=== PATIENT | male | born 1970 | race Caucasian/White ===

== ENCOUNTER 2019-09-12 11:05 | Emergency (ER) | payer OTHER, SELFPAY ==
--- NOTE | ~2019-09-12 | XR_ITS ---
EXAMINATION: XR chest 1V portable DATE: 09/12/2019 11:46 INDICATION: Dyspnea. Fever. TECHNIQUE: A single frontal view of the chest was obtained on 2 radiographs. COMPARISON: Chest 2 views 01/22/17 FINDINGS: The chest demonstrates clear lungs without pneumonia, pleural effusion, or pneumothorax. Th e heart size is normal. IMPRESSION: 1. No acute cardiopulmonary disease. Reviewed, dictated and finalized at location A.
[2019-09-12 11:18] VITALS: BP 136/83; PULSE 66; RESP 18; TEMP 36.8; O2SAT 98
--- NOTE | 2019-09-12 11:26 | ECG_ITS ---
Measurements Intervals [place] Rate: 61 P: 79 IA: 193 QRS: 66 QRSD: 86 T: 55 QT: 367 QTc: 372 Interpretive Statements SINUS RHYTHM NORMAL ECG Electronically Signed On 09-12-2019 12:32:19 CDT by Taj Chavez D.O.
[2019-09-12 11:40] LABS: Basophils Percent Auto 0.4 % (0.2-1.2); Eosinophils Absolute Auto 0.1 K/mm3 (0-0.3); Eosinophils Percent Auto 1.8 % (0-4.4); Hematocrit 45.8 % (42.0-52.0); Hemoglobin 16.3 g/dL (14.0-18.0); Immature Granulocyte Absolute 0.01 K/mm3 (0.00-0.031); Immature Granulocyte Percent A 0.2 % (0-0.5); Lymphocytes Absolute Auto 1.46 K/mm3 (0.9-3.2); Lymphocytes Percent Auto 29.9 % (18.3-44.2); Mean Corpuscular HGB Conc 35.6 g/dl (32-36); Mean Corpuscular Hemoglobin 29.9 pg (26-34); Mean Corpuscular Volume 83.9 fl (80-100); Mean Platelet Volume 9.5 fl (7.4-10.4); Monocytes Absolute Auto 0.4 K/mm3 (0.1-0.6); Monocytes Percent Auto 8.4 % (2.6-8.5); Neutrophils Absolute Auto 2.9 K/mm3 (1.3-6.7); Neutrophils Percent Auto 59.3 % (45.5-73.1); Platelet Count Result 242 k/mm3 (150-375); Red Blood Count 5.46 M/mm3 (4.6-6.20); Red Cell Distribution Width 11.9 % (11.5-14.5); White Blood Count 4.9 K/mm3 (4.5-10.0)
[2019-09-12 11:52] LABS: Blood Urea Nitrogen 11 mg/dL (9-20); Calcium 9.2 mg/dL (8.4-10.2); Carbon Dioxide 23 mmol/L (22-30); Chloride 105 mmol/L (98-107); Estimated CRCL calculation 94 ml/min; Estimated Glomerular Filt Rate > 60; Glucose 106 mg/dL (75-110); Lactic Acid 1.9 mmol/L (0.7-2.1); Sodium 138 mmol/L (137-145)
--- NOTE | 2019-09-12 12:08 | ED.SOB ---
HPI - SOB/Dyspnea General Chief Complaint: Shortness of Breath/Dyspnea Stated Complaint: COVID Symptoms Time Seen by Provider: 09/12/19 11:07 Source: patient Mode of arrival: ambulatory Limitations: no limitations History of Present Illness HPI Narrative: Patient is a 49-year-old male who presents to emergency department for evaluation upper respiratory symptoms for the last several days had COVID testing on Saturday pending testing still patient has been taking Tylenol and aspirin with improvement of symptoms had body aches chills congestion and productive cough during this. On arrival patient resting comfortable notes that through the duration of his illness he has had anterior chest tightness denies any chest pain. Patient denies sick contacts Related Data Allergies Allergy/AdvReac Type Severity Reaction Status Date / Time codeine Allergy Unknown Itching Verified 09/12/19 11:24 Review of Systems Review of Systems: All systems reviewed & are unremarkable except as noted in HPI and below PMFSH Social History Social History (Updated 09/12/19 @ 12:09 by Barney Barton PA-C) Smoking status: Never smoker Exam Narrative: Exam Narrative: GENERAL: Well-appearing, well-nourished, and in no acute distress. HEAD: Normocephalic, atraumatic. EYES: PERRLA and EOMI. ENT: Nares clear, no rhinorrhea or epistaxis. Mucous membranes moist. Oropharynx without tonsillar hypertrophy exudate or other lesions. CHEST: Clear to auscultation. No respiratory distress. No wheezes rales or rhonchi HEART: Regular rate and rhythm. No murmur heard. Normal peripheral pulses. ABDOMEN: Soft, nontender, nondistended EXTREMITIES: Normal range of motion. No edema. SKIN: Warm, dry, no rash. NEURO: No focal deficits. Alert and oriented x3. PSYCH: Normal mood and affect. Course Course Emergency Course: Patient in the room in no distress aware of case findings treatment plan and diagnosis agreeing to follow-up as directed with primary care in the room in no distress normal vital signs no pneumonia no hypoxemia Vital Signs Vital signs: Vital Signs Temperature 98.2 F 09/12/19 11:18 Pulse Rate 66 09/12/19 11:18 Respiratory Rate 18 09/12/19 11:18 Blood Pressure 136/83 09/12/19 11:18 Pulse Oximetry 98 09/12/19 11:18 Temperature 98.2 F 09/12/19 11:18 Pulse Rate 66 09/12/19 11:18 Respiratory Rate 18 09/12/19 11:18 Blood Pressure 136/83 09/12/19 11:18 Pulse Oximetry 98 09/12/19 11:18 MDM - SOB/Dyspnea MDM Narrative Medical decision making narrative: Patient in the room in no distress felt appropriate for outpatient reevaluation pending COVID testing advised to self quarantine normal vital signs no pneumonia felt appropriate for outpatient reevaluation Lab Data Result diagrams: 09/12/19 11:30 09/12/19 11:30 Labs: Lab Results 09/12/19 09/12/19 09/12/19 Range/Units 11:29 11:29 11:30 WBC 4.9 (4.5-10.0) K/mm3 RBC 5.46 (4.6-6.20) M/mm3 Hgb 16.3 (14.0-18.0) g/dL Hct 45.8 (42.0-52.0) % MCV 83.9 (80-100) fl MCH 29.9 (26-34) pg MCHC 35.6 (32-36) g/dl RDW 11.9 (11.5-14.5) % Plt Count 242 (150-375) k/mm3 MPV 9.5 (7.4-10.4) fl Immature Gran % (Auto) 0.2 (0-0.5) % Neut % (Auto) 59.3 (45.5-73.1) % Lymph % (Auto) 29.9 (18.3-44.2) % [place] % (Auto) 8.4 (2.6-8.5) % Eos % (Auto) 1.8 (0-4.4) % Baso % (Auto) 0.4 (0.2-1.2) % Lymph # (Auto) 1.46 (0.9-3.2) K/mm3 [place] # (Auto) 0.4 (0.1-0.6) K/mm3 Eos # (Auto) 0.1 (0-0.3) K/mm3 Baso # (Auto) 0.0 (0.0-0.1) K/mm3 Abs Immat Gran (auto) 0.01 (0.00-0.031) K/mm3 Absolute Neuts (auto) 2.9 (1.3-6.7) K/mm3 Absolute Nucleated RBC 0.0 (0.0-0.012) K/mm3 Nucleated RBC % 0.0 (0.0-0.2) % D-Dimer 0.27 (<0.48) ug/mL Sodium (137-145) mmol/L Potassium (3.4-5.0) mmol/L Chloride (98-107) mmol/L Carbon Dioxide (22-30) mmol/L
[2019-09-12 12:35] LABS: Troponin I < 0.012 ng/mL (0.000-0.034)
[2019-09-12 12:41] LABS: D Dimer 0.27 ug/mL (<0.48)
[2019-09-12 13:23] VITALS: BP 131/87; PULSE 59; RESP 18; O2SAT 98
[2019-09-12 13:46] VITALS: BP 126/84; PULSE 62; RESP 16; O2SAT 98
== END 2019-09-12 13:47 | disposition home or self-care (01) ==
PROVIDERS: Emergency Medicine Emergency Medical Services; Emergency Provider Emergency Medicine; PCP Chiropractor
DX: J06.9 Acute upper respiratory infection, unspecified (principal)
CPT/HCPCS: 36415; 71045; 80048; 83605; 84484; 85025; 85380; 87040; 93005; 99284

== ENCOUNTER 2021-07-11 16:25 | Emergency (ER) | payer OTHER, SELFPAY ==
[2021-07-11 16:39] VITALS: BP 133/88; PULSE 63; RESP 18; TEMP 37; O2SAT 100
--- NOTE | 2021-07-11 17:06 | ED.ABDPAIN ---
HPI - Abdominal Pain General Chief Complaint: Abdominal Pain Stated Complaint: abdominal pain Time Seen by Provider: 07/11/21 17:06 Source: patient Mode of arrival: ambulatory Limitations: no limitations History of Present Illness HPI narrative: Brice Valente is a 51 yo male with no PMH who comes to [facility] with abdominal pain that started late Saturday night. 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 He has been unable to eat any food or drink any significant amount of fluids without abdominal pain and are cramping. He has not been vomiting he is not having diarrhea but every time he eats he states he doubles over. Cannot eat banana, cannot eat any chicken, and cannot has been able to eat any thing solid No chronic use of marijuana, alcohol, cigarettes. Does take dietary/fitness (workout) supplements. Use creatinine for about 10 days and 1 developed this abdominal pain stop taking it. He has used creatinine in the past; he also uses some [employer] type stress reducing supplement Related Data Home Medications Medication Instructions Recorded Confirmed No Home Medications 07/11/21 07/11/21 Allergies Allergy/AdvReac Type Severity Reaction Status Date / Time codeine Allergy Unknown Itching Verified 07/11/21 16:59 Review of Systems Review of Systems: CONSTITUTIONAL: Denies fever, chills, sweats. EYES: Denies visual changes, redness, discharge. ENT: Denies rhinorrhea, congestion, sore throat, otalgia. CARDIOVASCULAR: Denies chest pain, palpitations, edema. RESPIRATORY: Denies dyspnea, wheezing, cough GASTROINTESTINAL: Has abdominal pain, no nausea, vomiting, diarrhea. GENITOURINARY: Denies dysuria, hematuria, abnormal discharge SKIN: Denies rash or itching. NEUROLOGIC: Denies numbness, or focal weakness. PSYCHIATRIC: Denies anxiety or depression. PMFSH Social History Social History (Updated 07/11/21 @ 17:20 by Angelique Amador CNP) Smoking status: Never smoker Alcohol intake: current Alcohol use details: No alcohol use in weeks Comments At time of signature, I agree with nursing past medical, surgical, social and family history. There is no relevant family history pertinent to the presenting complaint. Exam Narrative: GENERAL: This is a well-nourished, well-developed patient, in moderate distress. HEAD: normocephalic, atraumatic. EYES: PERRL. Sclera clear/white. Vision is grossly intact. EARS: External ears normal, Hearing grossly intact. NOSE: External nose normal without nasal discharge, nares without redness, no rhinorrhea. THROAT: Mucous membranes moist, NECK: Neck supple CARDIOVASCULAR: Regular rate and rhythm without murmurs, gallops, or rubs. RESPIRATORY: Clear to auscultation. Breath sounds equal bilaterally. No wheezes, rales, or rhonchi. GASTROINTESTINAL: Abdomen soft, non-tender, BS hypoactive but states when he takes anything in orally he has severe abdominal pain SKIN: warm, intact with no suspicious lesions or rash, good texture and turgor. NEURO: awake, alert, and oriented to person, place and time. There were no obvious focal neurologic abnormalities. Steady gait EXTREMITIES: Normal range of motion. BACK: Nontender without deformity Course Course Emergency Course: Patient comes to [facility] because of abdominal pain since Saturday; unable to eat; does not use alcohol or cigarettes or marijuana. Does use dietary supplements After physical assessment patient sent to [facility] for blood work and possible CT scan Level of Care: Express Care Visit Vital Signs Vital signs: Vital Signs Temperature 98.6 F 07/11/21 16:39 Pulse Rate 63 07/11/21 16:39 Respiratory Rate 18 07/11/21 16:39 Blood Pressure 133/88 07/11/21 16:39 Pulse Oximetry 100 07/11/21 16:39 Temperature 98.6 F 07/11/21 16:39 Pulse Rate 63 07/11/21 16:39 Respiratory Rate 18 07/11/21 16:39 Blood Pressure 133/88 07/11/21 16:39 Pulse Oximetry 100
== END 2021-07-11 17:19 | disposition short-term general hospital (02) ==
PROVIDERS: Emergency Provider Nurse Practitioner
DX: R10.13 Epigastric pain (principal)
CPT/HCPCS: 99212; G0463

== ENCOUNTER 2021-07-11 17:35 | Emergency (ER) | payer OTHER, SELFPAY ==
[2021-07-11 17:37] VITALS: BP 125/70; PULSE 68; RESP 18; TEMP 36.7; O2SAT 98
[2021-07-11] MEDS: SODIUM CHLORIDE 0.9% IV 1,000 ML 999 ML IV CONT (18:02)
[2021-07-11 18:03] LABS: Basophils Percent Auto 0.6 % (0.2-1.2); Eosinophils Absolute Auto 0.2 K/mm3 (0-0.3); Eosinophils Percent Auto 3.8 % (0-4.4); Hematocrit 45.9 % (42.0-52.0); Hemoglobin 15.5 g/dL (14.0-18.0); Immature Granulocyte Absolute 0.01 K/mm3 (0.00-0.031); Immature Granulocyte Percent A 0.2 % (0-0.5); Lymphocytes Absolute Auto 1.75 K/mm3 (0.9-3.2); Mean Corpuscular HGB Conc 33.8 g/dl (32-36); Mean Corpuscular Hemoglobin 29.4 pg (26-34); Mean Corpuscular Volume 87.1 fl (80-100); Mean Platelet Volume 9.6 fl (7.4-10.4); Monocytes Absolute Auto 0.8 K/mm3 (0.1-0.6); Neutrophils Absolute Auto 3.5 K/mm3 (1.3-6.7); Neutrophils Percent Auto 55.4 % (45.5-73.1); Platelet Count Result 270 k/mm3 (150-375); Red Blood Count 5.27 M/mm3 (4.6-6.20); Red Cell Distribution Width 12.3 % (11.5-14.5); White Blood Count 6.3 K/mm3 (4.5-10.0)
--- NOTE | 2021-07-11 18:05 | ED.ABDPAIN ---
HPI - Abdominal Pain General Chief Complaint: Abdominal Pain Stated Complaint: abd pain Time Seen by Provider: 07/11/21 17:40 History of Present Illness HPI narrative: Patient is a 51-year-old male who presents to the ER with epigastric abdominal pain. Ongoing for 4 days. Worse with eating. He has had 1 loose stool. At the onset of his symptoms he did have fevers and sweats as well as some chills. No blood in stool. No vomiting. No history of inflammatory bowel disease. Does not have heartburn in the back of his throat. Related Data Allergies Allergy/AdvReac Type Severity Reaction Status Date / Time codeine Allergy Unknown Itching Verified 07/11/21 16:59 Review of Systems Review of Systems: All systems reviewed & are unremarkable except as noted in HPI and below Constitutional: Constitutional: Reports chills and Reports fever(s) ENT: Denies nasal congestion and Denies sore throat Cardiovascular: Cardiovascular: Denies chest pain, Denies rapid heart rate and Denies radiating jaw, neck or arm pain Respiratory: Respiratory: Denies cough, Denies dyspnea and Denies wheezing Gastrointestinal: Gastrointestinal: Reports abdominal pain, Reports diarrhea, Denies nausea and Denies vomiting PMFSH Past Medical History Medical History (Updated 07/11/21 @ 18:56 by Gian Gates MD) Hypercholesterolemia Hypertension Surgical History Surgical History (Updated 07/11/21 @ 18:09 by Gian Gates MD) History of ankle surgery Social History Social History (Updated 07/11/21 @ 17:20 by Angelique Amador CNP) Smoking status: Never smoker Alcohol intake: current Alcohol use details: No alcohol use in weeks Exam Narrative: GENERAL: Well-appearing, well-nourished, and in no acute distress. HEAD: Normocephalic, atraumatic. EYES: PERRL and EOMI. CHEST: Clear to auscultation. No respiratory distress. HEART: Regular rate and rhythm. Normal peripheral pulses. ABDOMEN: Soft, nontender, nondistended, normal active bowel sounds. EXTREMITIES: Normal range of motion. No edema. SKIN: Warm, dry, no rash. NEURO: Alert and oriented x3. PSYCH: Normal mood and affect. Course Course Emergency Course: Labs unremarkable. Will start on reflux medication. Follow-up with PCP. Suspect patient had a gastric illness given the fevers and chills preceding symptoms. Vital Signs Vital signs: Vital Signs Temperature 98.1 F 07/11/21 17:37 Pulse Rate 68 07/11/21 17:37 Respiratory Rate 18 07/11/21 17:37 Blood Pressure 125/70 07/11/21 17:37 Pulse Oximetry 98 07/11/21 17:37 Temperature 98.1 F 07/11/21 17:37 Pulse Rate 68 07/11/21 17:37 Respiratory Rate 18 07/11/21 17:37 Blood Pressure 125/70 07/11/21 17:37 Pulse Oximetry 98 07/11/21 17:37 MDM - Abdominal Pain Lab Data Result diagrams: 07/11/21 17:53 07/11/21 17:53 Labs: Lab Results 07/11/21 07/11/21 07/11/21 Range/Units 17:53 17:53 17:53 WBC 6.3 (4.5-10.0) K/mm3 RBC 5.27 (4.6-6.20) M/mm3 Hgb 15.5 (14.0-18.0) g/dL Hct 45.9 (42.0-52.0) % MCV 87.1 (80-100) fl MCH 29.4 (26-34) pg MCHC 33.8 (32-36) g/dl RDW 12.3 (11.5-14.5) % Plt Count 270 (150-375) k/mm3 MPV 9.6 (7.4-10.4) fl Immature Gran % (Auto) 0.2 (0-0.5) % Neut % (Auto) 55.4 (45.5-73.1) % Lymph % (Auto) 28.0 (18.3-44.2) % [place] % (Auto) 12.0 H (2.6-8.5) % Eos % (Auto) 3.8 (0-4.4) % Baso % (Auto) 0.6 (0.2-1.2) % Lymph # (Auto) 1.75 (0.9-3.2) K/mm3 [place] # (Auto) 0.8 H (0.1-0.6) K/mm3 Eos # (Auto) 0.2 (0-0.3) K/mm3 Baso # (Auto) 0.0 (0.0-0.1) K/mm3 Abs Immat Gran (auto) 0.01 (0.00-0.031) K/mm3 Absolute Neuts (auto) 3.5 (1.3-6.7) K/mm3 Absolute Nucleated RBC 0.0 (0.0-0.012) K/mm3 Nucleated RBC % 0.0 (0.0-0.2) % Sodium 139 (137-145) mmol/L Potassium 4.1 (3.4-5.0) mmol/L Chloride 106 (98-107) mmol/L Carbon Dioxide
[2021-07-11 18:07] LABS: Appearance Urine Clear (Clear); Bilirubin Urine 1+ (Negative); Blood Urine Negative (Negative); Color Urine Yellow (Yellow); Glucose Urine UA Negative (Negative); Ketones Urine Trace mg/dL (Negative); Leukocyte Esterase Ur Negative LEU/UL (Negative); Nitrate Urine Negative (Negative); Protein Urine Negative (Negative); Specific Grav Ur >= 1.030 (1.001-1.035); Urobilinogen Urine 0.2 mg/dL (<2.0)
[2021-07-11 18:10] LABS: Mucus Urine Moderate /lpf; RBC Urine 0-2 /hpf (0-2); WBC Urine 0-3 /hpf
[2021-07-11 18:11] LABS: Add Urine Microscopic? YES
[2021-07-11 18:30] LABS: Alanine Aminotransferase 27 U/L (6-50); Albumin Level 4.7 g/dL (3.5-5.1); Alkaline Phosphatase 55 U/L (38-126); Anion Gap 9 mmol/L (8-16); Aspartate Amino Transferase 26 U/L (17-59); Bilirubin,Total 0.7 mg/dL (0.2-1.3); Blood Urea Nitrogen 11 mg/dL (9-20); Calcium 9.2 mg/dL (8.4-10.2); Carbon Dioxide 24 mmol/L (22-30); Chloride 106 mmol/L (98-107); Estimated CRCL calculation 84 ml/min; Estimated Glomerular Filt Rate > 60; Glucose 107 mg/dL (65-110); Lipase 105 U/L (23-300); Potassium 4.1 mmol/L (3.4-5.0); Sodium 139 mmol/L (137-145)
== END 2021-07-11 19:18 | disposition home or self-care (01) ==
PROVIDERS: Emergency Provider Emergency Medicine
DX: R10.13 Epigastric pain (principal); E78.00 Pure hypercholesterolemia, unspecified; I10 Essential (primary) hypertension
CPT/HCPCS: 36415; 80053; 81001; 83690; 85025; 96360; 99283; J7030

== ENCOUNTER 2023-04-05 10:38 | Emergency (ER) | payer OTHER, SELFPAY ==
--- NOTE | ~2023-04-05 | XR_ITS ---
Clinical Indication: Cough PA and lateral views of the chest: Comparison: 09/12/2019 Findings: The lungs are clear, without evidence of focal consolidation or pleural effusion. Cardiome diastinal silhouette is within normal limits. Bones and soft tissues are unremarkable. Impression: Normal chest. Reviewed, dictated and finalized at [facility]. 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
--- NOTE | 2023-04-05 10:56 | ED.GENADULT ---
HPI - General Adult General Chief complaint: Upper Respiratory Infection Stated complaint: cough,dental pain Time Seen by Provider: 04/05/23 10:56 Source: patient, RN notes reviewed and old records reviewed Mode of arrival: ambulatory Limitations: no limitations History of Present Illness HPI narrative: 53-year-old male presents to the [facility] with complaints of a productive cough that started on Saturday, 4 days ago. Reports left-sided upper and lower dental pain that started 2 days ago, concern for a sinus infection. Reports intermittent left-sided jaw, gum discomfort. States it is not all the time Reports intermittent sore throat, fatigue and chills. Took DayQuil Onset (ago): day(s) (4) Related Data Allergies Allergy/AdvReac Type Severity Reaction Status Date / Time codeine Allergy Unknown Itching Verified 04/05/23 10:56 Review of Systems Review of Systems: All systems reviewed & are unremarkable except as noted in HPI and below Constitutional: Constitutional: Reports no additional constitutional complaints Eyes: Eyes: Reports no additional eye complaints ENT: Reports as per HPI Cardiovascular: Cardiovascular: Reports no additional cardiovascular complaints, Denies chest pain and Denies dyspnea Respiratory: Respiratory: Reports as per HPI, Denies chest congestion, Reports cough and Denies dyspnea Gastrointestinal: Gastrointestinal: Reports no additional gastrointestinal complaints, Denies abdominal pain, Denies nausea and Denies vomiting Musculoskeletal: Musculoskeletal: Reports no additional musculoskeletal complaints Integumentary/Breasts: Skin/Breast: Reports system reviewed and no additional complaints, except as docu Neurologic: Reports system reviewed and no additional complaints, except as documented Psychiatric: Psychiatric: Reports no additional psychiatric complaints Allergic/Immunologic: Allergic/Immunologic: Reports no additional allergic/immunologic complaints [facility] Past Medical History Medical History Chronic throat pain Hypercholesterolemia Hypertension Surgical History Surgical History History of ankle surgery Family History Family History Mother Heart disease Alcoholism Father Hypertension Social History Social History Smoking status: Never smoker Alcohol intake: current Alcohol use details: No alcohol use in weeks Substance use: never Substance use type: does not use Occupation/Education: occupation Comments At the time of my signature, I reviewed and agree with the nursing past medical, surgical, social, and family history. There is no relevant family history pertinent to the patient complaint. Exam Const: General: cooperative, healthy appearing, comfortable, no acute distress, well developed, alert and well nourished Nutritional Appearance: well nourished Orientation/consciousness: patient oriented x3 Limitations: no limitations HENMT: Head: normal to inspection Ears: hearing grossly normal bilaterally, external ears normal, TM's normal bilaterally, EAC's normal, mastoids normal and no periauricular adenopathy Face/Nose/Sinus: Normal external nose present, Normal nares present, Normal nasal mucous membranes and turbinates present, normal facial exam, sinuses nontender and face symmetric Face and sinus: normal facial exam and face symmetric Mouth: Yes Normal oral and palatal mucosa present, Yes lip normal and Yes moist mucous membranes Throat: posterior oropharynx normal, uvula midline and postnasal drainage Eyes: General: appearance normal, both eyes and all related structures Alignment and Position: alignment normal Periorbital: periorbital findings normal Pupils: Equal, round and reactive pupils present EOM: EOMs intact bilatera
[2023-04-05 10:57] VITALS: BP 150/89; PULSE 69; RESP 16; TEMP 36.4; O2SAT 99
== END 2023-04-05 11:31 | disposition home or self-care (01) ==
PROVIDERS: Emergency Provider Nurse Practitioner; PCP Family Medicine
DX: J40 Bronchitis, not specified as acute or chronic (principal); Z20.822 Contact with and (suspected) exposure to COVID-19; E78.00 Pure hypercholesterolemia, unspecified; I10 Essential (primary) hypertension
CPT/HCPCS: 71046; 87426; 87804; 99213; G0463

== ENCOUNTER 2023-12-23 17:19 | Emergency (ER) | payer OTHER, SELFPAY ==
--- NOTE | 2023-12-23 17:42 | ED.URI ---
HPI - URI/Sore Throat General Chief Complaint: Upper Respiratory Infection Stated Complaint: Sore throat Time Seen by Provider: 12/23/23 17:42 Source: patient, RN notes reviewed and old records reviewed Mode of arrival: ambulatory Limitations: no limitations History of Present Illness HPI Narrative: 53-year-old male to Express Care with complaint of sore throat and headache since Saturday. Patient reports that he has a son home currently being treated for strep throat. Patient able to tolerate fluids by mouth. Patient resting comfortably in exam room in no acute distress. Respirations even and nonlabored. Related Data Allergies Allergy/AdvReac Type Severity Reaction Status Date / Time codeine Allergy Unknown Itching Verified 12/23/23 17:49 Review of Systems Review of Systems: All systems reviewed & are unremarkable except as noted in HPI and below Constitutional: Constitutional: Reports as per HPI and Reports headache(s) Eyes: Eyes: Reports no additional eye complaints ENT: Reports as per HPI and Reports sore throat Cardiovascular: Cardiovascular: Reports no additional cardiovascular complaints, Denies chest pain and Denies dyspnea Respiratory: Respiratory: Reports no additional respiratory complaints, Denies cough and Denies dyspnea Musculoskeletal: Musculoskeletal: Reports no additional musculoskeletal complaints Neurologic: Reports system reviewed and no additional complaints, except as documented Psychiatric: Psychiatric: Reports no additional psychiatric complaints PMFSH Past Medical History Medical History Chronic throat pain Hypercholesterolemia Hypertension Surgical History Surgical History History of ankle surgery Family History Family History Mother Heart disease Alcoholism Father Hypertension Social History Social History Smoking status: Never smoker Alcohol intake: current Alcohol use details: No alcohol use in weeks Substance use: never Substance use type: does not use Occupation/Education: occupation Comments At the time of my signature, I reviewed and agree with the nursing past medical, surgical, social, and family history. There is no relevant family history pertinent to the patient complaint. Exam Const: General: cooperative, no acute distress, alert, tired appearing, uncomfortable and well nourished Nutritional Appearance: well nourished Orientation/consciousness: patient oriented x3 Limitations: no limitations HENMT: Head: normal to inspection Ears: external ears normal Face/Nose/Sinus: Normal external nose present, Normal nares present, normal facial exam, No erythema and No edema Face and sinus: normal facial exam, no erythema and no edema Mouth: Yes Normal oral and palatal mucosa present Throat: abnormal tonsil bilateral erythema, exudates and hypertrophy 2+ Eyes: General: appearance normal, both eyes and all related structures Neck: Neck: normal visual inspection, full ROM and no meningeal signs Lymphatic: no lymphadenopathy noted and no lymphedema noted Chest: Chest palpation & inspection: normal inspection of the chest Resp: Effort & Inspection: normal respiratory effort and able to speak in complete sentences Auscultation: clear to auscultation bilaterally Cardio: Jugular venous distension: no JVD Rate: regular rate Rhythm: regular rhythm Back/Spine/Pelvis: Cervical Spine: cervical ROM normal Skin: General skin exam: normal color, no rashes or lesions noted and turgor normal Neuro: General: patient oriented x3, gait normal, moves all extremities and no meningeal signs Speech: normal speech Gait exam (Neuro): Normal gait present Extrem: General: normal to inspection, full ROM and capillar
[2023-12-23 17:48] VITALS: BP 141/89; PULSE 74; RESP 16; TEMP 36.6; O2SAT 99
[2023-12-23 17:50] VITALS: BP 141/89; PULSE 74; RESP 16; TEMP 36.6; O2SAT 99
[2023-12-23 17:50] LABS: EDSTREPNEGPOS1 Negative (Negative)
== END 2023-12-23 17:58 | disposition home or self-care (01) ==
PROVIDERS: Emergency Provider Nurse Practitioner Family; PCP Family Medicine
DX: J01.90 Acute sinusitis, unspecified (principal); I10 Essential (primary) hypertension; E78.00 Pure hypercholesterolemia, unspecified
CPT/HCPCS: 87081; 87880; 99213; G0463

== ENCOUNTER 2024-09-21 17:34 | Emergency (ER) | payer OTHER, SELFPAY ==
--- NOTE | ~2024-09-21 | XR_ITS ---
EXAMINATION: XR chest 2V Exam Date/Time: 09/21/2024 17:47 CDT HISTORY: cp Comparison: 04/05/2023. RESULT: Lines, tubes, and devices: None. Lungs and pleura: Clear. Cardiomediastinal silhouette: Stable. Other: No acute osseous or upper abdominal finding. IMPRESSION: No acute cardiopulmonary process. Reviewed, dictated and finalized at location K.
--- NOTE | 2024-09-21 17:35 | ECG_ITS ---
Test Date: 2024-09-21 17:42:01 Measurements Intervals [place] Rate: 66 P: 72 MD: 214 QRS: 41 QRSD: 85 T: 47 QT: 356 QTc: 374 Interpretive Statements SINUS RHYTHM WITH FIRST DEGREE AV BLOCK No previous ECG available for comparison Electronically Signed On 09-22-2024 16:33:36 CDT by Tressa Woo M.D.
--- OUTSIDE RECORDS SUMMARY | 2024-09-21 17:37 | XMS_ITS | Clinical Summary ---
Author Organization [facility] Address [address] [place] [address] Care Team Providers Care Conciliator Name Role Phone Jeffery Cyr MD Primary Care Provider [phone]- [phone] Allergies Active Allergy Reactions Criticality Noted Date Comments Codeine Nausea Only Medications cholecalciferol (VITAMIN D-3) 5,000 unit tablet daily. 12/27/2011 Active predniSONE (DELTASONE) 5 mg tablet Active dexlansoprazole (DEXILANT) 60 mg capsule daily. Active secukinumab (COSENTYX) 150 mg/mL syringe Active iolqc-3-kex-epa- dpa-fish oil 1,050-1,200 mg capsule daily. Active nystatin 100,000 unit/mL suspension Take 15 mL (1,500,000 Units total) by mouth 3 (three) times a day. 450 mL 10/15/2017 Active Active Problems No known active problems Surgical History Surgery Date Site/Laterality Comments ANKLE SURGERY Medical History Medical History Date Comments Dorsalgia Backache - (Adde d by TW Conv) Pain in joint Arthralgia of mu ltiple sites - (Added by TW Conv) Family History Medical History Relation Name Comments Skin cancer Father Family history of skin cancer - (Added by TW Conv) Depression Mother Family history of depression - (Added by TW Conv) Fibromyalgia Mother Family history of fibromyalgia - (Added by TW Conv) Heart failure Mother Family history of heart failure - (Added by TW Conv) Hypertension Mother Family history of hypertension - (Added by TW Conv) Relation Name Status Comments Father Mother Social History Tobacco Use Types Packs/Day Years Used Date Smoking Tobacco: Never Sex and Gender Information Value Date Recorded Sex Assigned at Not on file 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 Gender Identity Not on file Sexual Orientation Not on file Obstetrics History Last Filed Vital Signs Vital Sign Reading Time Taken Comments Blood Pressure 124/81 09/11/2016 4:01 PM CDT Pulse 64 09/11/2016 4:01 PM CDT Temperature - - Respiratory Rate - - Oxygen Saturation - - Inhaled Oxygen Concentration - - Weight 90.7 kg (200 lb) 10/15/2017 9:29 AM CDT Height 188 cm (6' 2) 10/15/2017 9:29 AM CDT Body Mass Index 25.68 10/15/2017 9:29 AM CDT Plan of Treatment Not on file Insurance [employer] Care Teams Conciliator Relationship Specialty Start Date End Date Jeffery Cyr MD [address] [place] [address] PCP - General Internal Medicine 09/27/17
--- OUTSIDE RECORDS SUMMARY | 2024-09-21 17:37 | XMS_ITS | Referral Summary ---
Author Organization [facility] Address [address] [place] [address] Care Team Providers Care Restaurant Area Director Name Role Phone Jeffery Cyr MD Primary Care Provider [phone]- [phone] Allergies Active Allergy Reactions Criticality Noted Date Comments Codeine Nausea Only Medications cholecalciferol (VITAMIN D-3) 5,000 unit tablet daily. 12/27/2011 Active predniSONE (DELTASONE) 5 mg tablet Active dexlansoprazole (DEXILANT) 60 mg capsule daily. Active secukinumab (COSENTYX) 150 mg/mL syringe Active rmfzy-8-cqm-epa- dpa-fish oil 1,050-1,200 mg capsule daily. Active nystatin 100,000 unit/mL suspension Take 15 mL (1,500,000 Units total) by mouth 3 (three) times a day. 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
--- OUTSIDE RECORDS SUMMARY | 2024-09-21 17:37 | XMS_ITS ---
Author Organization [facility] Address [address] [place], [place] [id number] Care Team Providers Care Software Installation Engineer Name Role Phone LALO DON MD Primary Care Provider Zeynep Lyn [phone] MEDICATIONS Medication SIG (Take, Route, Frequency, Duration) Notes Start Date End Date Status Rinvoq 15 mg 1 tab(s) orally once a day for 30 days 09/14/2024 Active Encounters Encounter Location Date Provider Diagnosis [facility] [address], [address] [place], [place] [id number] 09/12/2024 Zeynep Jacobson PLAN OF TREATMENT Medication Medication Name Sig Start Date Stop Date Notes Rinvoq 15 mg 1 tab(s) orally once a day for 30 days 2024 Next Appt Details Provider Name:Jenn Lindsey Luis Miguel wills, 10/01/2024 11:20:00 AM, [address], [address], [place], [place], [id number],
--- OUTSIDE RECORDS SUMMARY | 2024-09-21 17:37 | XMS_ITS | Data Portability ---
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 Lab None recorded. Referral None recorded. Procedures None recorded. Surgeries None recorded. Imaging None recorded. Medication Orders Crestor 10 mg tablet 023 023 [id number], [address] [place], [address], 3 17:40:37 CoQ-10 100 mg capsule 023 023 [id number], [address] [place], [address], 3 17:40:37 Patient TargetsNo targets recorded. Patient Instructions Encounter Date Encounter Id Patient Instructions Last Modified By Organization Details Last Modified Time 12/24/2019 [id number] lightheadedness or faintness: care instructions Not available 12/24/2019 14:20:42 high cholesterol : care instructions [email or web address] Not available 12/24/2019 14:20:42 learning about low-fat eating [email or web address] Not available 12/24/2019 14:20:42 Exercise advised Low cholesterol diet advised Low sodium diet advised [email or web address] Not available 12/24/2019 14:20:32 Scribed by Murtaza Cuenca ELEMENTARY SCIENCE TEACHER-BC [email or web address] Not available 12/24/2019 14:20:37 12/22/2020 [id number] lightheadedness or faintness: care instructions [email or web address] Not available 12/22/2020 16:09:35 high cholesterol : care instructions [email or web address] Not available 12/22/2020 16:09:35 learning about low-fat eating [email or web address] Not available 12/22/2020 16:09:35 01/05/2021 [id number] lightheadedness or faintness: care instructions [email or web address] Not available 01/05/2021 15:36:33 high cholesterol : care instructions [email or web address] Not available 01/05/2021 15:36:33 learning about low-fat eating [email or web address] Not available 01/05/2021 15:36:33 07/24/2022 [id number] Exercise advised Low cholesterol diet advised Low sodium diet advised. [email or web address] Not available 07/24/2022 15:03:36 Reason for Referral None Reported. Results Created Date Observation Date Name Description Value Unit Range Abnormal Flag Note LastModifiedBy Organization Detail LastModifiedTime 12/31/1912/24/2019 elect rocomar diogr am No observ ation record ed. [email or web address] Not Available 2019 15:58:04 12/31/1912/22/2020 elect thiago diogr am No observ ation record ed. [email or web address] Not Available 2020 09:34:04 01/04/2001/03/2021 , echoc ardio gram No observ ation record ed. [facility] [address], [place], [address], 01/04/2021 16:29:25 01/06/20 21 01/03/2021 US, echoc ardio gram No observ ation record ed. [email or web address] Not Available 2020 10:33:59 03/21/19 22 01/03/2021 US, echoc ardio gram No observ ation record ed. [email or web address] Not Available 2021 10:19:54 07/26/19 23 07/24/2022 elect thiago diogr am No observ ation record ed. [email or web address] Not Available 2022 14:55:11 10/23/1910/02/2022 exerc isclarissa new s echoc ardio gram No observ ation record ed. [email or web address] Not Available 2022 12:48:51 12/27/1911/12/2022 event monit or No observ ation record ed. [email or web address] Not Available 2022 13:31:41 Result Notes Documentation Provider Name and Address Organization Details Recorded Time Lipid Panel, Blood : 01/21/21:Na 139,K 4.6,Cl 101,Co2 27,Glu 93,Bun 13,Cr 1.10. 01/21/21:Tc 241,TG 118,HDL 36,LDL 183. Shannon mcgregor [place] - [facility] 06/22/2021 17:49:03 Lipid Panel, Blood : 10/13/22:Na 141,K 5.0,CL 104,CO2 25,GLU 91,BUN 12,Cr 1.32,ALT 27,AST 23,CPK 173. 10/13/22:TC 222,TG 167,HDL 39,LDL 153. Shannon mcgregor [place] - [facility] 10/14/2022 19:53:54 Problems Name Problem SNOMED Code Status Onset Date Resolution Date Notes Provider Name and Address Organization Details Recorded Time Fatigue 85122319 Active 2016 Nuria mcgregor [place] - [facility] 7 14:01:20 Gastroesophage al reflux disease 778725940 Active 2016 Nuria mcgregor [place] - [facility] 7 14:01:28 Swollen abdomen 78463610 Active 2016 Nuria mcgregor [place] - [facility] 7 14:01:38 Backache 635829694 Active 2016 Nuria mcgregor [place] - [facility] 7 14:01:56 Anxiety 57992971 Active 2016 Nuria mcgregor [place] - [facility] 7 14:02:01 Depressive disorder 74272737 Active 2016 Nuria Kaplan [facility] 7 14:02:05 Myron garcia 919324435 Active 2016 Nuria Kaplan [facility] 7 14:02:14 Hyperlipidemia 71734947 Active 2016 Shannon Galindo [facility] 3 13:06:50 Dyspnea on exertion 33946322 Active 2020 James Cardoza [facility] 1 16:07:38 Problem Notes None recorded. Medical Equipment None Reported. Allergies Allergen ID Allergen Name Allergen Category Reaction Reaction Severity Criticality Documentation Date Start Date Code Code System Note Provider Name and Address Organization Details Recorded Time 5248 codeine medicatio n Not available Not available Not available 12/06/2016 2670 RxNorm hot flash es Nuria Kaplan [facility] 7 14:14:48 Medications Name Sig Start Date Stop Date Status Note LastModified by Organization Details LastModified Time prednisone 10 mg tablet TAKE 4 TABS FOR 5 DAYS THEN 2 TABS FOR 5 DAYS THEN 1 TAB FOR 5 DAYS THEN 1/2 TAB FOR 30 DAYS 07/24 completed Not Available Not Available Not Available nabumetone 750 mg tablet 12/23 completed Not Available Not Available Not Available IBU 800 mg tablet Take 1 tablet twice a day by oral route as directed. 12/23 completed Not Available Not Available Not Available Lidocaine Viscous 2 % mucosal solution 12/27 completed Not Available Not Available Not Available citalopram 10 mg tablet 12/23 completed Not Available Not Available Not Available prednisone 5 mg tablet TAKE 1 TABLET BY MOUTH EVERY DAY active Not Available Not Available No t Available tramadol 50 mg tablet 12/06 completed Not Available Not Available Not Available alprazolam 0.25 mg tablet 12/23 completed Not Available Not Available Not Available famotidine 20 mg tablet 12/23 completed Not Available Not Available Not Available amitriptyli ne 25 mg tablet 12/23 completed Not Available Not Available Not Available Vitamin C 1,000 mg tablet Take 1 tablet every day by oral route as directed. active Not Available Not Available No t Available prednisone 1 mg tablet TAKE 3 TABLETS BY MOUTH EVERY DAY FOR 14 DAYS, THEN TAKE 2 TABLETS EVERY DAY 07/24 completed Not Available Not Available Not Available cevimeline 30 mg capsule 12/23 completed Not Available Not Available Not Available lidocaine 5 % topical patch 12/06 completed Not Available Not Available Not Available furosemide 20 mg tablet 12/23 completed Not Available Not Available Not Available azelastine 137 mcg (0.1 %) nasal spray 12/06 completed Not Available Not Available Not Available levofloxaci n 500 mg tablet 12/27 completed Not Available Not Available Not Available methylpredn isolone 4 mg tablets in a dose pack 12/27 completed Not Available Not Available Not Available albuterol sulfate HFA 90 mcg/actuati on aerosol inhaler 12/23 completed Not Available Not Available Not Available rosuvastati n 10 mg tablet TAKE 1 TABLET BY MOUTH TWICE A DAY active Not Available Not Available No t Available Boostrix Tdap 2.5 Lf unit-8 mcg-5 Lf/0.5 mL intramuscul ar syringe 12/27 completed Not Available Not Available Not Available Aspir-81 1 tab qd 12/25 completed prn Not Available Not Available Not Available Vitamin D 5000Iu 1 tab qd 01/10 completed Not Available Not Available Not Available cetirizine 07/24 completed Not Available Not Available Not Available [place] 3 1 tab qd 12/23 completed Not Available Not Available Not Available CoQ-10 100 mg capsule Take 1 capsule twice a day by oral route. 2022 active Not Available Not Available Not Avai lable Dexilant 60 mg capsule, delayed release 1 tab qd 12/23 completed Not Available Not Available Not Available Cosentyx Pen 150 mg/mL subcutaneou s pen injector weekly 12/23 completed on hold; al 12/26 Not Available Not Available Not Available Fish Oil 1,000 mg (120 mg-180 mg) capsule Take 1 capsule every day by oral route. active Not Available Not Available No t Available Flucelvax Quad [id number] (PF) 60 mcg (15 mcg x 4)/0.5 mL IM syringe 12/23 completed Not Available Not Available Not Available turmeric 1 tab qd 12/23 completed Not Available Not Available Not Available Afluria Qd 2018- (36 mos up)(PF)60 mcg (15 mcg x4)/0.5 mL IM syringe 12/22 completed Not Available Not Available Not Available ID NOW COVID-19 Test Kit DIRECTED 07/24 completed Not Available Not Available Not Available Fluzone Quad (PF) 60 mcg (15 mcg x 4)/0.5 mL IM syringe 12/23 completed Not Available Not Available Not Available Vitals Date Recorded Body height Body mass index (BMI) Body weight Heart rate Respiratory rate Oxygen saturation Oxygen saturation in Arterial blood by Pulse oximetry Systolic And Diastolic Provider Name and Address Organization Details Last Updated DateTime 3 187.96 cm 26.6 kg/m2 25906.6 2 g 81 /min 16 /min 97 % 97 % 118/80 mm[Hg] Clark Holt i, MD [address] [place], [address], [facility] 3 14:12:59 Date Recorded Body height Body mass index (BMI) Body weight Heart rate Respiratory rate Oxygen saturation Oxygen saturation in Arterial blood by Pulse oximetry Systolic And Diastolic Provider Name and Address Organization Details Last Updated DateTime 3 187.96 cm 26.4 kg/m2 89850.0 3 g 81 /min 16 /min 96 % 96 % 126/88 mm[Hg] Jorge Baxter [facility] 3 17:01:05 Date Recorded Body height Body mass index (BMI) Body weight Heart rate Oxygen saturation Oxygen saturation in Arterial blood by Pulse oximetry Systolic And Diastolic Provider Name and Address Organization Details Last Updated DateTime 1 187.96 cm 25.7 kg/m2 07127.4 7 g 69 /min 97 % 97 % 109/77 mm[Hg] Екатерина Wilkins [facility] 1 15:36:39 Date Recorded Body height Body mass index (BMI) Body weight Heart rate Oxygen saturation Oxygen saturation in Arterial blood by Pulse oximetry Body temperature Systolic And Diastolic Provider Name and Address Organization Details Last Updated DateTime 0 187.96 cm 25.5 kg/m2 15095.8 8 g 91 /min 97 % 97 % 97.7 [degF] 132/90 mm[Hg] MIGUELANGEL GRANT [facility] 0 14:13:22 Date Recorded Body height Body mass index (BMI) Body weight Heart rate Oxygen saturation Oxygen saturation in Arterial blood by Pulse oximetry Systolic And Diastolic Provider Name and Address Organization Details Last Updated DateTime 1 187.96 cm 25.7 kg/m2 92188.4 7 g 78 /min 99 % 99 % 112/82 mm[Hg] Екатерина Wilkins [facility] 1 14:40:25 Social History Question Answer Notes LastModified by [email or web address] ion Details LastModified Time Tobacco Smoking Status [facility] 14:05:32 What Is Your Level Of Caffeine Consumption? Occasional [email or web address] Information not available 12/06/2016 How Much Tobacco Do You Chew? None [email or web address] Information not available 12/06/2016 What Type Of Diet Are You Following? REGULAR [email or web address] Information not available 12/06/2016 Which Illicit Or Recreational Drugs Have You Used? No [email or web address] Information not available 12/06/2016 Live Alone Or With Others? With Others [email or web address] Information not available 12/06/2016 Marital Status [email or web address] Informatio n not available 12/06/2016 What Was The Date Of Your Most Recent Tobacco Screening? 12/26/2017 Information not available 09/25/2018 How Many Children Do You Have? 2 Information not available 12/06/2016 How Much Tobacco Do You Smoke? No [email or web address] Information not available 12/06/2016 General Stress Level Medium [email or web address] Information not available 12/06/2016 How Many Years Have You Smoked Tobacco? 0 Information not available 12/25/2016 Sex: Unknown Functional Status Question Answer Note LastModified by Organizat ion Details LastModified Time What is your level of alcohol consumption? None Information not available 12/06/2016 Do you or have you ever used smokeless tobacco? 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 Never used electronic cigarettes Information not available 12/22/2018 What is your exercise level? None [email or web address] Information not available 12/06/2016 Mental Status None recorded. Family History Relationship Description Onset Age of this Age Resolved Age Notes LastModified by Organization Details LastModified Time Mother Heart disease [email or web address] Not available 2016 14:04:57 Mother Hypertensive disorder [email or web address] Not available 2016 14:05:16 Father Hypercholest erolemia [email or web address] Not available 2016 14:05:22 Medical History Condition Response GERD/Reflux Y Hyperlipidemia Y Depression Y Past Encounters Encounter ID Performer Location Encounter Start Date Encounter Closed Date Diagnosis/Indication Diagnosis SNOMED-CT Code Diagnosis ICD10 Code Diagnosis Note [id number] Clark Danielson MD [place] [facility] [place] [address] 12/06/2016 13:45:47 12/06/2016 15:30:24 Lightheadedness 009215826 R42 Patient presents with recurrent dizziness. Given the history, exam findings and intermedia te cardiac risk factors, I feel additional investigat ion is warranted. I have made arrangemen ts in the near future for an exercise stress echocardio gram to evaluate for any ischemia, structural heart disease, or exercise induced arrythmia. The procedure was discussed with the patient, and risks, benefits, and alternativ e options were explained. Appropriat e labwork has not been performed recently, therefore I have made arrangemen ts for further testing. I have asked the patient to curtail exercise and activities until our investigat ion is complete. I have made the following adjustment s to the present medical regimen. [id number] James Cardoza MD [facility] [address] [place] [address] 12/27/2016 14:18:50 12/28/2016 12:53:46 Lightheadedness 300912749 R42 Stress test negative. Very good exercise tolerance. Recent ECHO showed hyperdynam ic LV systolic function. Hyperlipidemia 16093773 E78.5 Patient's hyperlipid emia is relatively well-contr olled on present medical therapy. Patient is tolerating , without difficulty , the current medication s. I have made the following changes to the current regimen:st art fish oil . Cont low cholestero l diet. [id number] Clark Danielson MD [facility] [address] [place] [address] 12/26/2017 14:00:19 12/26/2017 14:57:36 Hyperlipidemia 16158564 E78.5 Patient's hyperlipid emia is relatively well-contr olled on present medical therapy. Patient is tolerating , without difficulty , the current medication s. I have made the following changes to the current regimen:st art fish oil . Cont low cholestero l diet.will obtain last lipid panel from [facility] 25935330 8 R42 Stress test negative. Very good exercise tolerance. last ECHO showed hyperdynam ic LV systolic function.r epeat ECHO [id number] James Cardoza MD [facility] [address] [place] [address] 12/25/2018 14:02:16 12/25/2018 15:22:06 Hyperlipidemia 33182613 E78.5 Patient's hyperlipid emia is relatively well-contr olled on present medical therapy. Patient is tolerating , without difficulty , the current medication s. I have made the following changes to the current regimen:st art fish oil . Cont low cholestero l diet.will obtain last lipid panel from [facility] 43735654 8 R42 better Family his tory of Cardiovascular disease 557189822 Z82.49 Stress test negative. Very good exercise tolerance. last ECHO showed hyperdynam ic LV systolic function. [id number] James Cardoza MD [facility] [address] [place] [address] 12/24/2019 13:59:21 12/24/2019 14:44:25 Hyperlipidemia 52603336 E78.5 Patient's hyperlipid emia is relatively well-contr olled on present medical therapy. Patient was advised to eat a low-fat diet. Patient is tolerating , without difficulty , the current medication s. I have not made changes to the current regimen. [place] [id number] 8 R42 Resolved Family his tory of Cardiovascular disease 391289888 Z82.49 SE negative 12/18/2016 Maximal [place] [id number] James Cardoza MD [place] [facility] [place] [address] 12/22/2020 15:25:10 12/22/2020 16:02:44 Hyperlipidemia 66299176 E78.5 Patient's hyperlipid emia is relatively well-contr olled on present medical therapy. Patient was advised to eat a low-fat diet. Patient is tolerating , without difficulty , the current medication s. I have not made changes to the current regimen. Lightheadedness 39751758 8 R42 Resolved Family his tory of Cardiovascular disease 218294380 Z82.49 SE negative 12/18/2016 Maximal medical treatment with risk factor modificati on Dyspnea on exertion 6084 5006 R06.09 Patient presents with MISTRY which could be equivalent of angina.. Given the history, exam findings and high cardiac risk factors, I feel additional investigat ion is warranted. I have made arrangemen ts in the near future for an exercise stress echocardio gram to evaluate for any ischemia, structural heart disease, or exercise induced arrythmia. The procedure was discussed with the patient, and risks, benefits, and alternativ e options were explained. Appropriat e labwork has not been performed recently, therefore I have made arrangemen ts for further testing. I have asked the patient to curtail exercise and activities until our investigat ion is complete. I have made the following adjustment s to the present medical regimen. [id number] James Cardoza MD [facility] [place] [address] 01/05/2021 14:31:01 01/05/2021 15:13:15 Hyperlipidemia 03094576 E78.5 Patient's hyperlipid emia is relatively well-contr olled on present medical therapy. Patient was advised to eat a low-fat diet. Patient is tolerating , without difficulty , the current medication s. I have not made changes to the current regimen. Lightheadedness 82380698 8 R42 Resolved Family his tory of Cardiovascular disease 850319829 Z82.49 SE negative 12/18/2016 Maximal medical treatment with risk factor modificati on Dyspnea on exertion 6084 5006 R06.09 Patient presents with MISTRY which could be equivalent of angina.. Given the history, exam findings and high cardiac risk factors, I feel additional investigat ion is warranted. I have made arrangemen ts in the near future for an exercise stress echocardio gram to evaluate for any ischemia, structural heart disease, or exercise induced arrythmia. The procedure was discussed with the patient, and risks, benefits, and alternativ e options were explained. Appropriat e labwork has not been performed recently, therefore I have made arrangemen ts for further testing. I have asked the patient to curtail exercise and activities until our investigat ion is complete. I have made the following adjustment s to the present medical regimen.EC HO showed normal LV systolic function and mild RVE and RV systolic dysfunctio nhe has hx of possibly covid. pulmonary eval [id number] Clark Danielson MD [facility] [address] [place] [address] 07/24/2022 13:58:44 07/24/2022 15:11:43 Hyperlipidemia 15063229 E78.5 Needs to keep LDL less than 70, and HDL more than 40Will get fasting lipids for follow up Lightheadedness 38353348 8 R42 Will get exercise stress echo, to look for any structural heart disease, and to look for any ischemia Family his tory of Cardiovascular disease 863862054 Z82.49 Will get exercise stress echo, to look for any structural heart disease, and to look for any ischemia Dyspnea on exertion 6084 5006 R06.09 Will get exercise stress echo, to look for any structural heart disease, and to look for any ischemia [id number] Clark Danielson MD [facility] [address] [place] [address] 10/16/2022 16:54:51 10/16/2022 18:05:37 Hyperlipidemia 47081241 E78.5 Needs to keep LDL less than 70, and HDL more than 40Will get fasting lipids for follow upLDL is 153 and TG 167will start crestor 10 mg daily and coq10 [facility]14477 8 R42 will monitor for one week 2020, Study quality: Technicall y difficult. LV chamber size is normal. There is normal global systolic function and contractil ity. The estimated left ventricle ejection fraction is 55-60% (normal). RV size is mildly dilated. There is mild right ventricula r systolic dysfunctio n. Left Atrium chamber is mildly dilated. There is trace triscupid regurgitat ion. Family his tory of Cardiovascular disease 543610986 Z82.49 negative stress test Dyspnea on exertion 6084 5006 R06.09 Will get exercise stress echo, to look for any structural heart disease, and to look for any ischemia Chest pain 23482630 R07. 9 stress echo is negative and patient still have occasional chest painwill order CTA with calcium score Health Concerns Section Related Observation LastModified by Organization Detai ls LastModified Time None Recorded Concern Status LastModified by Organization Details LastModified Time None Recorded Advance Directives Directive None Recorded Payers Insurance Date Sequence Insurance Name Policy Number Policy Franks Covered Member ID Franks Member ID Guarantor Name 02/23/2019 1 JEREMIAH-CAESAR (PPO) MYNOR [employer] Valente [id number] Brice Hugo 02/23/2019 1 [employer] Brice Valente [id number] Brice Valente 09/08/2024 1 [employer] - [facility] [place] [id number] Brice Refugio Valente [id number] Bricerinku Valente Notes Date Note Type Note Provider Name and Address Organization Details Recorded Time 12/24/2019 text/html 12/24/19 CC: chest pain fu HPI; 49 year-old WM with PMH of chronic sore throat and FHx of cardiac problems presents for scheduled fu. He was last evaluated in our office 1 year ago on 12/25/2018. Since then he reports feeling well with no complaints. Had in August severe flu after which slowly recovered. Kevin is exercisng almost on daily basis and tolerates it fine. No further chest pain. Occasional dyspnea on exertion. He admits he is not very active d/t hip issues. He mistry have chronic sore throat for 5 yrs which is being followed by ENT. He had throat biopsy which was negative. He had treadmill stress test many years ago. He has some family hx of cardiac problems. *Had ECHO done in 01/06/18 showed normal global systolic function, EF 60-65% , mild aortic regurgitation. Mitral valve prolapse is present , mild thickening of mitral valve anterior leaflet. trace mitral regurgitation. There is minimal tricuspid regurgitation. Results from this visit, or from the past: LIPIDS (12/22/16): TC 182, TG 181, LDL 118, HDL 43chem (12/22/16): Na 143, K 4.4, Cr 1.1, Mg 2.2 EKG (12/24/2019): NSR, poor R progression, NSST changes.12/25/18 EKG: Sinus rhythm Inverted T wave in I Inverted T wave in aVLEKG (12/26/2017): NSR, normal. EKG (12/06/2016): NSR, normal. Holter 12/06/16: No PVC's. Rare PAC's NSR. Sinus arrhythmia. SE 12/18/16 : Negative stress echo. 01/06/18 ECHO: LV chamber size is normal. LV wall thickness is normal. There is normal global systolic function and contractility. The estimated left ventricle ejection fraction is 60-65%(normal). LV relaxation is normal. Left atrium chamber is mildly dilated. The non-coronary cusp is mildly calcified. There is mild aortic regurgitation. Mitral valve prolapse is present. There is mild thickening of mitral valve anterior leaflet. There is trace mitral regurgitation. There is minimal tricuspid regurgitation. 09/13/16 ECHO: LV chamber size is normal. There is mild concentric LV hypertrophy. There is normal global systolic function and contractility . The estimated left ventricle ejection fraction is 65-70%(normal). LV relaxation is normal. Left atrium chamber is mild dilated. There is trivial aortic regurgitation. There is trace mitral regurgtiation. US, Carotid Artery 12/18/16 : Antegrade flow noted in both vertebral arteries. Very mild bilateral internal carotid artery stenosis with less than 15% diameter stenosis. James Cardoza [place], [place] - [facility] 12/24/2019 15:18:17 12/22/2020 text/html 12/22/20CC : [facility]; 50 year-old WM with PMH of chronic sore throat and FHx of cardiac problems is here for 1 year follow up.He was last seen in the clinic on 12/24/19 , since then heHe denies ER visits and hospitalizations since he was last seen.Today reports:Denies chest pain.Denies shortness of breath at rest. Has mild dyspnea on exertion.No orthopnea. No PNDs.Denies heart palpitations.Denies dizziness. Denies syncope or near syncope.No ankle or leg edema.No major bleeding events.No reported side effects from medications. Taking medications as prescribed with no missed doses.Denies snoring, daytime somnolence and AM headache.*Last LDL was 118 done on 12/21/16 .Pt dose not takes any statins.He admits he is not very active d/t hip issues. he has FHx of CHF in his mom. No CAD or DM.Takes some herbal meds for primary prophylaxis. Had some infection after which he feels has some more significant MISTRY.No CP or SOB. Previously :Had in August severe flu after which slowly recovered. Kevin is exercisng almost on daily basis and tolerates it fine.Had Occasional dyspnea on exertion.He mistry have chronic sore throat for 5 yrs which is being followed by ENT. He had throat biopsy which was negative.He had treadmill stress test many years ago.He has some family hx of cardiac problems.*Had ECHO done in 01/06/18 showed normal global systolic function, EF 60-65% , mild aortic regurgitation. Mitral valve prolapse is present , mild thickening of mitral valve anterior leaflet. trace mitral regurgitation. There is minimal tricuspid regurgitation. Results from this visit, or from the past:LIPIDS (12/22/16): TC 182, TG 181, LDL 118, HDL 43chem (12/22/16): Na 143, K 4.4, Cr 1.1, Mg 2.2 EKG (12/22/2020): NSR, poor R progression, NSST changes.EKG (12/24/2019): NSR, poor R progression, NSST changes.12/25/18 EKG: Sinus rhythm Inverted T wave in I Inverted T wave in aVLEKG (12/26/2017): NSR, normal.EKG (12/06/2016): NSR, normal.Holter 12/06/16: No PVC's. Rare PAC's NSR. Sinus arrhythmia.SE 12/18/16 : Negative stress echo.01/06/18 ECHO: LV chamber size is normal. LV wall thickness is normal. There is normal global systolic function and contractility. The estimated left ventricle ejection fraction is 60-65%(normal). LV relaxation is normal. Left atrium chamber is mildly dilated. The non-coronary cusp is mildly calcified. There is mild aortic regurgitation. Mitral valve prolapse is present. There is mild thickening of mitral valve anterior leaflet. There is trace mitral regurgitation. There is minimal tricuspid regurgitation.09/13/16 ECHO: LV chamber size is normal. There is mild concentric LV hypertrophy. There is normal global systolic function and contractility . The estimated left ventricle ejection fraction is 65-70%(normal). LV relaxation is normal. Left atrium chamber is mild dilated. There is trivial aortic regurgitation. There is trace mitral regurgtiation.US, Carotid Artery 12/18/16 : Antegrade flow noted in both vertebral arteries. Very mild bilateral internal carotid artery stenosis with less than 15% diameter stenosis. James Cardoza [facility], [place] - [facility] 12/22/2020 16:09:38 01/05/2021 text/html 01/05/21CC : [facility] follow upH[facility]; 50 year-old WM with PMH of chronic sore throat and FHx of cardiac problems is here for follow up. pt had dgn tests and today presents for review of results. had ECHO, stress test and labs are still pending. dyspnea on exertionPt states that few months ago he had severe infection and it was probably COVID. Since then feels weak and has some SOB. Never been seen by pulmonary. He was last seen in the clinic on 12/24/19 , since then heHe denies ER visits and hospitalizations since he was last seen.Today reports:Denies chest pain.Denies shortness of breath at rest. Has mild dyspnea on exertion.No orthopnea. No PNDs.Denies heart palpitations.Denies dizziness. Denies syncope or near syncope.No ankle or leg edema.No major bleeding events.No reported side effects from medications. Taking medications as prescribed with no missed doses.Denies snoring, daytime somnolence and AM headache.*Last LDL was 118 done on 12/21/16 .Pt dose not takes any statins.*Had ECHO done in 01/03/21 showed LV chamber size is normal,there is normal global systolic function and contractility, the estimated LVEF is 55-60%,RV size is mildly dilated,there is mild right ventricular systolic dysfunction,left atrium chamber is mildly dilated,there is trace tricuspid regurgitation. Previously :he has FHx of CHF in his mom. No CAD or DM.Takes some herbal meds for primary prophylaxis.Had some infection after which he feels has some more significant MISTRY.No CP or SOB.Had in August severe flu after which slowly recovered. Kevin is exercisng almost on daily basis and tolerates it fine.Had Occasional dyspnea on exertion.He mistry have chronic sore throat for 5 yrs which is being followed by ENT. He had throat biopsy which was negative.He had treadmill stress test many years ago.He has some family hx of cardiac problems. Results from this visit, or from the past:LIPIDS (12/22/16): TC 182, TG 181, LDL 118, HDL 43chem (12/22/16): Na 143, K 4.4, Cr 1.1, Mg 2.2EKG (12/22/2020): NSR, poor R progression, NSST changes.EKG (12/24/2019): NSR, poor R progression, NSST changes.12/25/18 EKG: Sinus rhythm Inverted T wave in I Inverted T wave in aVLEKG (12/26/2017): NSR, normal.EKG (12/06/2016): NSR, normal.Holter 12/06/16: No PVC's. Rare PAC's NSR. Sinus arrhythmia.SE 12/18/16 : Negative stress echo.01/06/18 ECHO: LV chamber size is normal. LV wall thickness is normal. There is normal global systolic function and contractility. The estimated left ventricle ejection fraction is 60-65%(normal). LV relaxation is normal. Left atrium chamber is mildly dilated. The non-coronary cusp is mildly calcified. There is mild aortic regurgitation. Mitral valve prolapse is present. There is mild thickening of mitral valve anterior leaflet. There is trace mitral regurgitation. There is minimal tricuspid regurgitation.09/13/16 ECHO: LV chamber size is normal. There is mild concentric LV hypertrophy. There is normal global systolic function and contractility . The estimated left ventricle ejection fraction is 65-70%(normal). LV relaxation is normal. Left atrium chamber is mild dilated. There is trivial aortic regurgitation. There is trace mitral regurgtiation.US, Carotid Artery 12/18/16 : Antegrade flow noted in both vertebral arteries. Very mild bilateral internal carotid artery stenosis with less than 15% diameter stenosis. James Cardoza [facility], [place] - [facility] 01/05/2021 15:37:07 07/24/2022 text/html 07/24/22CC : Car [facility] follow up, chest painHPI; 52 year-old WM with PMH of chronic sore throat , Hyperlipidemia and FHx of cardiac problems is here for follow up with labs results. He was last seen in the clinic on 01/05/21, since then he is activeHe denies ER visits and hospitalizations since he was last seen. Today reports:Denies chest pain.Denies shortness of breath at rest. Has mild dyspnea on exertion.No orthopnea. No PNDs.Denies heart palpitations.Denies dizziness. Denies syncope or near syncope.No ankle or leg edema.No major bleeding events.No reported side effects from medications. Taking medications as prescribed with no missed doses.Denies snoring, daytime somnolence and AM headache.*Last LDL was 183 done on 01/20/21.Pt dose not takes any statins. 01/22/21:Na 139,K 4.6,Cl 101,CO2 27,Glu 93,BUN 13,Cr 1.10.01/22/21:TC 241,TG 118,LDL 183,HDL 36. Previously:Pt states that few months ago he had severe infection and it was probably COVID. Since then feels weak and has some SOB. *Had ECHO done in 01/03/21 showed LV chamber size is normal,there is normal global systolic function and contractility, the estimated LVEF is 55-60%,RV size is mildly dilated,there is mild right ventricular systolic dysfunction,left atrium chamber is mildly dilated,there is trace tricuspid regurgitation. He has FHx of CHF in his mom. No CAD or DM.Had some infection after which he feels has some more significant MISTRY. Had in August severe flu after which slowly recovered. Kevin is exercising almost on daily basis and tolerates it fine.Had Occasional dyspnea on exertion.He mistry have chronic sore throat for 5 yrs which is being followed by ENT. He had throat biopsy which was negative.He had treadmill stress test many years ago.He has some family hx of cardiac problems. Results from this visit, or from the past:LIPIDS (12/22/16): TC 182, TG 181, LDL 118, HDL 43chem (12/22/16): Na 143, K 4.4, Cr 1.1, Mg 2.2EKG (12/22/2020): NSR, poor R progression, NSST changes.EKG (12/24/2019): NSR, poor R progression, NSST changes.12/25/18 EKG: Sinus rhythm Inverted T wave in I Inverted T wave in aVLEKG (12/26/2017): NSR, normal.EKG (12/06/2016): NSR, normal.Holter 12/06/16: No PVC's. Rare PAC's NSR. Sinus arrhythmia.SE 12/18/16 : Negative stress echo.01/06/18 ECHO: LV chamber size is normal. LV wall thickness is normal. There is normal global systolic function and contractility. The estimated left ventricle ejection fraction is 60-65%(normal). LV relaxation is normal. Left atrium chamber is mildly dilated. The non-coronary cusp is mildly calcified. There is mild aortic regurgitation. Mitral valve prolapse is present. There is mild thickening of mitral valve anterior leaflet. There is trace mitral regurgitation. There is minimal tricuspid regurgitation.09/13/16 ECHO: LV chamber size is normal. There is mild concentric LV hypertrophy. There is normal global systolic function and contractility . The estimated left ventricle ejection fraction is 65-70%(normal). LV relaxation is normal. Left atrium chamber is mild dilated. There is trivial aortic regurgitation. There is trace mitral regurgtiation.US, Carotid Artery 12/18/16 : Antegrade flow noted in both vertebral arteries. Very mild bilateral internal carotid artery stenosis with less than 15% diameter stenosis. Clark Danielson MD [address] [place], [address], [facility] - [facility] 07/24/2022 15:03:54 10/16/2022 text/html 10/16/22CC : Car [facility] follow up chest painDean HUGO 52 year-old WM with PMH of chronic sore throat , Hyperlipidemia and FHx of cardiac problems is here for follow up with labs results. He was last seen in the clinic on 07/24/22, since then he has occasional chest pain but no dyspnea on exertion. *Last LDL was 153 done on 10/12/22.Pt dose not takes any statins. Stress echo is negative.He denies ER visits and hospitalizations since he was last seen. Today reports:occasional chest pain.Denies shortness of breath at rest. Has mild dyspnea on exertion.No orthopnea. No PNDs.Denies heart palpitations.Denies dizziness. Denies syncope or near syncope.No ankle or leg edema.No major bleeding events.No reported side effects from medications. Taking medications as prescribed with no missed doses.Denies snoring, daytime somnolence and AM headache.*Last LDL was 153 done on 10/12/22.Pt dose not takes any statins. Previously:Pt states that few months ago he had severe infection and it was probably COVID. Since then feels weak and has some SOB. *Had ECHO done in 01/03/21 showed LV chamber size is normal,there is normal global systolic function and contractility, the estimated LVEF is 55-60%,RV size is mildly dilated,there is mild right ventricular systolic dysfunction,left atrium chamber is mildly dilated,there is trace tricuspid regurgitation. Had some infection after which he feels has some more significant MISTRY. Had in August severe flu after which slowly recovered. Kevin is exercising almost on daily basis and tolerates it fine. Had Occasional dyspnea on exertion. He mistry have chronic sore throat for 5 yrs which is being followed by ENT. He had throat biopsy which was negative. He has some family hx of cardiac problems. Results from this visit, or from the past:LIPIDS (12/22/16): TC 182, TG 181, LDL 118, HDL 43chem (12/22/16): Na 143, K 4.4, Cr 1.1, Mg 2.2EKG (12/22/2020): NSR, poor R progression, NSST changes.EKG (12/24/2019): NSR, poor R progression, NSST changes.12/25/18 EKG: Sinus rhythm Inverted T wave in I Inverted T wave in aVLEKG (12/26/2017): NSR, normal.EKG (12/06/2016): NSR, normal.Holter 12/06/16: No PVC's. Rare PAC's NSR. Sinus arrhythmia.SE 12/18/16 : Negative stress echo.01/06/18 ECHO: LV chamber size is normal. LV wall thickness is normal. There is normal global systolic function and contractility. The estimated left ventricle ejection fraction is 60-65%(normal). LV relaxation is normal. Left atrium chamber is mildly dilated. The non-coronary cusp is mildly calcified. There is mild aortic regurgitation. Mitral valve prolapse is present. There is mild thickening of mitral valve anterior leaflet. There is trace mitral regurgitation. There is minimal tricuspid regurgitation.07/13/17 ECHO: LV chamber size is normal. There is mild concentric LV hypertrophy. There is normal global systolic function and contractility . The estimated left ventricle ejection fraction is 65-70%(normal). LV relaxation is normal. Left atrium chamber is mild dilated. There is trivial aortic regurgitation. There is trace mitral regurgtiation.US, Carotid Artery 12/18/16 : Antegrade flow noted in both vertebral arteries. Very mild bilateral internal carotid artery stenosis with less than 15% diameter stenosis. JULIUS ZEPEDA [facility], [place] - [facility] 10/16/2022 17:40:38
--- OUTSIDE RECORDS SUMMARY | 2024-09-21 17:37 | XMS_ITS | Patient Health Record ---
Author Organization [facility] Address 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 Role Phone LALO DON MD Primary Care Provider Zeynep Lyn Unavailable [phone] ALLERGIES Allergen (clinical drug ingredient) Drug/Non Drug Allergy documented on EMR Reaction Allergy Type Onset Date Status codeine codeine Sweats/unwell feeling Drug Allergy Active RESULTS Component Value Reference Range Notes Complement C4, Serum Reviewed date:09/11/2024 10:13:58 AM Interpretation: Performing Lab:[facility], [address] [facility] Phone - [phone], [facility]/Report: Complement C4, Serum 12 12-38 mg/dL CBC With Differential/Platel et Reviewed date:09/11/2024 11:48:06 AM Interpretation: Performing Lab:[place], [address] [facility] ([facility] Phone - [phone], Director - Kiet Notes/Report: WBC 8.1 3.4-10.8 x10E3/uL RBC 5.43 4.14-5.80 x10E6/uL Hemoglobin 15.7 13.0-17.7 g/dL Hematocrit 48.3 37.5-51.0 % MCV 89 79-97 fL MCH 28.9 26.6-33.0 pg MCHC 32.5 31.5-35.7 g/dL RDW 13.8 11.6-15.4 % Platelets 307 150-450 x10E3/uL Neutrophils 83 Not Estab. % Lymphs 14 Not Estab. % Monocytes 3 Not Estab. % Eos 0 Not Estab. % Basos 0 Not Estab. % Immature Cells Neutrophils (Absolute) 6.6 1.4-7.0 x10E3/uL Lymphs (Absolute) 1.2 0.7-3.1 x10E3/uL Monocytes(Absolute) 0.3 0.1-0.9 x10E3/uL Eos (Absolute) 0.0 0.0-0.4 x10E3/uL Baso (Absolute) 0.0 0.0-0.2 x10E3/uL Immature Granulocytes 0 Not Estab. % Immature Grans (Abs) 0.0 0.0-0.1 x10E3/uL NRBC Hematology Comments: Sed Rate - [place] Reviewed date:09/11/2024 10:14:51 AM Interpretation: Performing Lab:[facility], Phone - [phone], Director - [facility] Notes/Report: Sedimentation Rate-[place] 6 0-30 mm/hr Complement C3, Serum Reviewed date:09/11/2024 10:14:48 AM Interpretation: Performing Lab:[facility] [address], Phone - [phone], Director - [facility] Notes/Report: Complement C3, Serum 114 82-167 mg/dL C-Reactive Protein, Quant Reviewed date:09/11/2024 10:13:45 AM Interpretation: Performing Lab:[facility], Phone - [phone], Director - [facility] Notes/Report: C-Reactive Protein, Quant <1 0-10 mg/L Comp. Metabolic Panel (14) Reviewed date:09/11/2024 11:48:00 AM Interpretation: Performing Lab:[facility] [address], Phone - [phone], Director - [facility] Notes/Report: Glucose 92 70-99 mg/dL BUN 21 6-24 mg/dL Creatinine 1.04 0.76-1.27 mg/dL eGFR 86 >59 mL/min/1.73 BUN/Creatinine Ratio 20 9-20 Sodium 139 134-144 mmol/L Potassium 4.8 3.5-5.2 mmol/L Chloride 103 96-106 mmol/L Carbon Dioxide, Total 21 20-29 mmol/L Calcium 9.8 8.7-10.2 mg/dL Protein, Total 6.8 6.0-8.5 g/dL Albumin 4.6 3.8-4.9 g/dL Globulin, Total 2.2 1.5-4.5 g/dL Bilirubin, Total 0.6 0.0-1.2 mg/dL Alkaline Phosphatase 65 44-121 IU/L AST (SGOT) 18 0-40 IU/L ALT (SGPT) 42 0-44 IU/L MINI Panel (MINI+ALO+Scl 70+Sj Jordy+SjoSSB) Reviewed date:09/11/2024 10:14:04 AM Interpretation: [facility]forming [facility] [address] [facility], Phone - [phone], Director - [facility] Notes/Report: MINI by IFA Rfx Titer/Pattern Negative Negative <1:80 Borderline 1:80 Positive >1:80 ICAP nomenclature: AC-0 For more information about Hep-2 cell patterns use ANApatterns.org, the official website for the International Consensus on Antinuclear Antibody (MINI) Patterns (ICAP). SALAD COUNTER ATTENDANT Antibodies <0.2 0.0-0.9 AI [place] Antibodies <0.2 0.0-0.9 AI Antiscleroderma-70 Antibodies <0.2 0.0-0.9 AI Sjogren's Anti-SS-A 0.2 0.0-0.9 AI Sjogren's Anti-SS-B <0.2 0.0-0.9 AI Hep B Surface Ab qualatative Reviewed date:09/11/2024 10:14:31 AM Interpretation: Performing Lab:[facility] [place], [address] [facility], Phone - [phone], Director - [facility] Notes/Report: Hep B Surface Ab, Qual Non Reactive Non Reactive: Not immune to HBV infection. Equivocal: Unable to determine if anti-HBs is present at levels consistent with immunity. Reactive: Anti-HBs concentration detected at greater than 10 mIU/mL. Individual is considered to be immune to infection with HBV. DS DNA-CRITHIDIA IFA W/REFLE X TO [facility] Reviewed date:09/11/2024 10:14:33 AM Interpretation: Performing Lab:[facility], [address] [facility], Phone - [phone], Director - [facility] Notes/Report: dsDNA Hiro zaragozae IFA Negative Negative QUANTIFERON(R)-TB GOLD PLUS, 1 TUBE Reviewed date:09/12/2024 10:43:37 AM Interpretation: Performing Lab:[facility], [address] [facility], Phone - [phone], Director - [facility] Notes/Report: QuantiFERON Incubation Incubation performed. QuantiFERON-TB Gold Plus Negative Negative No response to M tuberculosis antigens detected. Infection with M tuberculosis is unlikely, but high risk individuals should be considered for additional testing (ATS/IDSA/CDC Clinical Practice Guidelines, 2017). The reference range is an Antigen minus Nil result of <0.35 IU/mL. Chemiluminescence immunoassay methodology QuantiFERON Criteria QuantiFERON-TB Gold Plus is a qualitative indirect test for M tuberculosis infection (including disease) and is intended for use in conjunction with risk assessment, radiography, and other medical and diagnostic evaluations. The QuantiFERON-TB Gold Plus result is determined by subtracting the Nil value from either TB antigen (Ag) value. The Mitogen tube serves as a control for the test. QuantiFERON TB1 Ag Value 0.04 QuantiFERON TB2 Ag Value 0.04 QuantiFERON Nil Value 0.03 QuantiFERON Mitogen Value >10.00 Acute Hepatitis Reviewed date:09/11/2024 10:13:56 AM Interpretation: Performing Lab:[facility], [address] [facility], Phone - [phone], Director - [facility] Notes/Report: Hep A Ab, IgM Negative Negative A negative anti-HAV IgM result suggests no recent or current HAV infection. HBsAg Screen Negative Negative Hep B Core Ab, IgM Negative Negative HCV Ab Non Reactive Non Reactive Interpretation: Not infected with HCV unless early or acute infection is suspected (which may be delayed in an immunocompromised individual), or other evidence exists to indicate HCV infection. REASON FOR REFERRAL No Information MEDICATIONS Medication SIG (Take, Route, Frequency, Duration) Notes Start Date End Date Status Rinvoq 15 mg 1 tab(s) orally once a day for 30 days 09/14/2024 Active predniSONE 5 mg 1 tab(s) orally once a day Active doxycycline monohydrate 100 mg 1 tab(s) orally 2 times a day Active benzonatate 200 mg 1 cap(s) orally 3 ti mes a day Active SOCIAL HISTORY Tobacco Use: Social History Observation Description Date Details (start date - stop date) Never Smoker NA - NA Sex Assigned At : Social History Observation Description Sex Assigned At Unknown Tobacco Use: Question Answer Notes Smoking Status nonsmoker PROBLEMS Problem Type ICD Code Onset Dates Problem Status W/U Status Risk SNOMED Code Notes Problem Psoriatic arthritis (L40.50) Active confirmed 813128348 Problem 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) Active confirmed 596926800 Problem Myalgia (M79.1) Active confirmed 151814 01 Problem MCC (current) use of systemic steroids (Z79.52) Active confirmed Long-term current use of systemic steroid (928118977330 103) Problem Never smoked cigarettes (Z78.9) Active confirmed 576525908 Problem Degenerative disc disease, lumbar (M51.36) Active confirmed 54484642 Problem Cervical stenosis of spinal canal (M48.02) Active confirmed 74014812 Problem Ankylosing spondylitis, unspecified site of spine (M45.9) Active confirmed 0156350 VITAL SIGNS Heart Rate 64 /min 09/08/2024 Blood pressure diastolic 81 mm Hg 09/08/2024 Height 74 in 09/08/2024 Blood pressure systolic 144 mm Hg 09/08/2024 Weight 198 lbs 09/08/2024 BMI 25.42 kg/m2 09/08/2024 Encounters Encounter Location Date Provider [facility] [address] [facility] [place], [place] [id number] 09/08/2024 Zeynep Jacobson Ankylosing spondylitis, unspecified site of spine M45.9 ; HLA B27 positive Z15.89 ; Cervical stenosis of spinal canal M48.02 ; tank 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 [address] [facility] [place], [place] [id number] 09/14/2024 Zeynep Jacobson ASSESSMENTS Encounter Date Diagnosis Assessment Notes Treatment Notes Treatment Clinical Notes Section Notes 09/08/2024 HLA B27 positive (ICD-10 - Z15.89) Long hx of chronic inflammatory back pain- HLAB27 positive - PsA vs . Complicated by DJD. Re-evaluate labs and xrays. Failed MTX, NSAIDs and TNF's. 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 Look into Rinvoq. Discussed BB warning- no hx of DVT or CVA 09/08/2024 Ankylosing spondylitis, unspecified site of spine (ICD-10 - M45.9) Long hx of chronic inflammatory back pain- HLAB27 positive - PsA vs . Complicated by DJD. Re-evaluate labs and xrays. Failed MTX, NSAIDs and TNF's. 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 Look into Rinvoq. Discussed BB warning- no hx of DVT or CVA 09/08/2024 Cervical stenosis of spinal canal (ICD-10 - M48.02) Long hx of chronic inflammatory back pain- HLAB27 positive - PsA vs . Complicated by DJD. Re-evaluate labs and xrays. Failed MTX, NSAIDs and TNF's. 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 Look into Rinvoq. Discussed BB warning- no hx of DVT or CVA 09/08/2024 MCC (current) use of systemic steroids (ICD-10 - Z79.52) Long hx of chronic inflammatory back pain- HLAB27 positive - PsA vs . Complicated by DJD. Re-evaluate labs and xrays. Failed MTX, NSAIDs and TNF's. 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 Look into Rinvoq. Discussed BB warning- no hx of DVT or CVA 09/08/2024 Other intervertebral disc degeneration, lumbar region with discogenic back pain only (ICD-10 - M51.360) Long hx of chronic inflammatory back pain- HLAB27 positive - PsA vs . Complicated by DJD. Re-evaluate labs and xrays. Failed MTX, NSAIDs and TNF's. Discussed the fact that senior living steroids are not a great treatment option. Look into Rinvoq. Discussed BB warning- no hx of DVT or CVA 09/08/2024 Encounter for other specified special examinations (ICD-10 - Z01.89) Long hx of chronic inflammatory back pain- HLAB27 positive - PsA vs . Complicated by DJD. Re-evaluate labs and xrays. Failed MTX, NSAIDs and TNF's. 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 Look into Rinvoq. Discussed BB warning- no hx of DVT or CVA 09/08/2024 Encounter for screening for respiratory tuberculosis (ICD-10 - Z11.1) Long hx of chronic inflammatory back pain- HLAB27 positive - PsA vs . Complicated by DJD. Re-evaluate labs and xrays. Failed MTX, NSAIDs and TNF's. Discussed the fact that senior living steroids are not a great treatment option. Look into Rinvoq. Discussed BB warning- no hx of DVT or CVA 09/08/2024 Degeneration of intervertebral disc of lumbar region, unspecified whether pain present (ICD-10 - M51.369) Long hx of chronic inflammatory back pain- HLAB27 positive - PsA vs . Complicated by DJD. Re-evaluate labs and xrays. Failed MTX, NSAIDs and TNF's. Discussed the fact that senior living steroids are not a great treatment option. Look into Rinvoq. Discussed BB warning- no hx of DVT or CVA PLAN OF TREATMENT Pending Test Test Name Order Date X ray : Spines, lumbar- outside order X ray : Spines, lumbar- outside order Creatinine, Serum 08/14/2017 Creatinine, Serum 04/24/2017 X ray : Hand left- outside order 017 X ray : Hand left- outside order 025 X ray : Hand right- outside order 2016 X ray : Hand right- outside order 2024 X ray : Spines, cervical- outside order 09/08/2024 X ray : SI joints- outside order 017 X ray : SI joints- outside order 025 X ray : Hip, left- outside order 025 X ray : Hip, right- outside order 2024 -Xray slip given 10/29/2016 Physical therapy 08/12/2017 X ray : Spines, thoracic- outside order 09/08/2024 X ray : Spines, thoracic- outside order 08/12/2017 CREATININE 05/16/2018 Next Appt Details Provider Name:Jenn wills, 10/01/2024 11:20:00 AM, [address] [facility], [place], [place], [phone], Insurance Providers Payer Name Payer Address Payer Phone Subscriber Number Group Number Insured Name Patient Relationship to Insured Coverage Start Date Coverage End Date [employer] [address] [place] [address] [id number] Brice Valente Self - patient is the insured 5 MEDICAL (GENERAL) HISTORY Medical History History ICD Code tension headaches loss of hearing ringing in ears erection difficulties anxiety depression hoarseness chest pain difficulty breathing chronic cough bronchitis bloating Surgical History Surgery Date(Month/Year) Throat biopsy 05/2017 R ankle orthoscopy Hospitalization History Reason Date(Month/Year) Broken foot 03/2017
--- OUTSIDE RECORDS SUMMARY | 2024-09-21 17:37 | XMS_ITS | Clinical Summary ---
Author Organization [facility] Address [address] [place] [address] Care Team Providers Care Filler Shaker Name Role Phone Jeffery Cyr MD Primary Care Provider Source Comments [facility],non-owned Affiliates and Associated Physician Practices is amultiple site organization consisting of ambulatory clinics and hospital sitesin [place], [place], [place] and [place]. This disclosure is being madepursuant to the Care Everywhere program and may not contain all information available regarding this patient. Last updated 17.[facility] [employer] Allergies Active Allergy Reactions Criticality Noted Date Comments Codeine Nausea and/or Vomiting Medications * Be aware that medications may not be up to date on this document. Alwaysverify current medications with the patient. dexlansoprazole (DEXILANT) 60 MG capsule Dexilant 60 mg capsule, delayed release Active predniSONE (DELTASONE) 5 MG tablet Take 5 mg by mouth once daily 9 Active fluticasone propionate (FLONASE) 50 MCG/ACT nasal spray SPRAY 2 SPRAYS INTO EACH NOSTRIL EVERY DAY 6 8 Active albuterol HFA (PROAIR HFA) 108 (90 BASE) MCG/ACT inhaler every 8 hours Active RaNITidine HCl (RANITIDINE 150 MAX STRENGTH PO) Take 150 mg by mouth as needed Active Cholecalciferol (D3-1000 PO) Take 5,000 Units by mouth once daily Active [place]-3 Fatty Acids (FISH OIL) 1000 MG capsule Take 1,000 mg by mouth once daily Active CBD oil Take 1 mg by mouth once daily Active nabumetone (RELAFEN) 750 MG tablet Take 1 tablet by mouth 2 times daily 60 tablet 1 9 Active Additional Information Patient not taking.Reported on 09/17/2018 cevimeline (EVOXAC) 30 MG capsuleIndicati ons:HLA B27 (HLA B27 positive),Hoars eness of voice,Sicca laryngitis,Bila teral dry eyes Take 1 capsule by mouth 3 times daily 90 capsule 3 9 Active Active Problems Problem Noted Date Diagnosed Date HLA B27 (HLA B27 positive) 08/20/2018 Chronic low back pain without sciatica 9 Plantar fasciitis 08/20/2018 Hoarseness of voice 08/20/2018 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 Bilateral dry eyes 08/20/2018 Pain in throat 06/02/2018 Immunizations Immunization Administration Dates Next Due INFLUENZA VACCINE 12/02/2017 Family History Medical History Relation Name Comments Alcohol abuse Father Cancer - Other Father Glaucoma Father Gout Father Hearing Loss - Unspecified Father Hypertension Father Anxiety Disorder Mother Arthritis - Rheumatoid Mother Depression Mother Celiac Disease Neg Hx Crohn's Disease Neg Hx Lupus Neg Hx Psoriasis Neg Hx Ulcerative Colitis Neg Hx Relation Name Status Comments Father Mother Social History Tobacco Use Types Packs/Day Years Used Date Smoking Tobacco: Never Smokeless Tobacco: Never Alcohol Use Standard Drinks/Week Comments No 0 (1 standard drink = 0.6 oz pur e alcohol) Sex and Gender Information Value Date Recorded Sex Assigned at Not on file 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 Gender Identity Not on file Sexual Orientation Not on file Last Filed Vital Signs Vital Sign Reading Time Taken Comments Blood Pressure 120/70 09/17/2018 10:49 AM CDT Pulse 62 09/17/2018 10:49 AM CDT Temperature 36.7 C (98 F) 09/17/2018 10:49 AM CDT Respiratory Rate 18 09/17/2018 10:49 AM CDT Oxygen Saturation 98% 09/17/2018 10:49 AM CDT Inhaled Oxygen Concentration - - Weight 90 kg (198 lb 6.4 oz) 09/17/2018 10:49 AM CDT Height 188 cm (6' 2) 08/20/2018 10:17 AM CDT Body Mass Index 25.47 08/20/2018 10:17 AM CDT Plan of Treatment Health Maintenance Due Date Last Done Comments MARY StrangeAGES 45-75) - COL ON CA SCREENING 1972 COLON MONITORING 1972 COLONOSCOPY - COLON CA SCREENING 1972 CT COLONOGRAPHY - COLON CA SCREENING 1972 Colorectal Cancer Screening 1972 FIT - COLON CA SCREENING 1972 FLEX SIG - COLON CA SCREENING 1972 LIPID TESTING 1972 HIV SCREENING 1987 HEPATITIS C SCREENING 03/31/1990 DTAP/TDAP/TD VACCINES (1 - Tdap) 1991 HEPATITIS B VACCINE (1 of 3 - 19+ 3-dose series) 1991 SCREENING FOR DIABETES 05/15/2018 PNEUMOCOCCAL VACCINE 50+ (1 of 1 - PCV) 2022 ZOSTER VACCINE (1 of 2) 2022 COVID-19 VACCINE (1 - 2023-2 5 season) 2023 DEPRESSION SCREENING 03/04/2024 INFLUENZA VACCINE (#1) 2024 8, 01/02/2017, 01/01/2017 HIB VACCINE Aged Out No longer eligi ble based on patient's age to complete this topic HPV VACCINE Aged Out No longer eligi ble based on patient's age to complete this topic MENINGOCOCCAL (Group B) VACCINE SHARED DECISION-MAKING Aged Out No longer eligible based on patient's age to complete this topic MENINGOCOCCAL GROUPS A/C/Y/W VACCINE Aged Out No longer eligible b ased on patient's age to complete this topic Insurance [employer] Care Teams Filler Shaker Relationship Specialty Start Date End Date Jeffery Cyr MD [address] [place] [address] PCP - General 05/15/18
--- OUTSIDE RECORDS SUMMARY | 2024-09-21 17:37 | XMS_ITS | Clinical Summary ---
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 Name Role Phone Unavailable Primary Care Provider Unavailabl e Social History Tobacco Use Types Packs/Day Years Used Date Smoking Tobacco: Never Assessed Sex and Gender Information Value Date Recorded Sex Assigned at Not on file Legal Sex Male 6:48 PM CDT Gender Identity Not on file Sexual Orientation Not on file Plan of Treatment Health Maintenance Due Date Last Done Comments Colorectal Cancer Screening Colonoscopy (10 Years) 1972 Annual Physical 1975 Hepatitis C 1990 DTaP, Tdap and Td Vaccines ( 1 - Tdap) 1991 Hepatitis B Vaccines (1 of 3 - 19+ 3-dose series) 1991 Pneumococcal Vaccine: 50+ Ye ars (1 of 1 - PCV) 2022 Zoster Vaccines (1 of 2) 2022 COVID-19 Vaccine ( - 2023-2 5 season) 2023 Meningococcal B Vaccine Aged Out No l onger eligible based on patient's age to complete this topic Meningococcal Vaccine Aged Out No nighat lesa eligible based on patient's age to complete this topic RSV Immunizations Under 20 Months Aged Out No longer eligible based on patient's age to complete this topic
--- OUTSIDE RECORDS SUMMARY | 2024-09-21 17:37 | XMS_ITS ---
Author Organization [facility] Address [address] [place], [place] [id number] Care Team Providers Care Projector Booth Operator Name Role Phone LALO DON MD Primary Care Provider Zeynep Lyn Unavailable [phone] ALLERGIES Allergen (clinical drug ingredient) Drug/Non Drug Allergy documented on EMR Reaction Allergy Type Onset Date Status codeine codeine Sweats/unwell feeling Drug Allergy Active RESULTS Component Value Reference Range Notes Complement C4, Serum Reviewed date:09/11/2024 10:13:58 AM Interpretation: Performing Lab:[facility], [address] [facility] Phone - [phone], [facility] Notes/Report: Complement C4, Serum 12 12-38 mg/dL CBC With Differential/Platel et Reviewed date:09/11/2024 11:48:06 AM Interpretation: Performing Lab:[facility], [address] [facility], Phone - [phone], Director - [place] Notes/Report: WBC 8.1 3.4-10.8 [...] Westergren Reviewed date:09/11/2024 10:14:51 AM Interpretation: [facility] [address] [place] [address], Phone - [phone], Director - [facility] Notes/Report: Sedimentation Rate-Caledoniaergren 6 0-30 mm/hr Complement C3, Serum Reviewed date:09/11/2024 10:14:48 AM Interpretation: Performing Lab:[facility], Phone - [phone], Director - [facility] Notes/Report: Complement C3, Serum 114 82-167 mg/dL C-Reactive Protein, Quant Reviewed date:09/11/2024 10:13:45 AM Interpretation: Performing Lab:[facility], Phone - [phone], Director - [facility] Notes/Report: C-Reactive Protein, Quant <1 0-10 mg/L Comp. Metabolic Panel (14) Reviewed date:09/11/2024 11:48:00 AM Interpretation: Performing Lab:[facility], Phone - [phone], Director - [facility] Notes/Report: Glucose 92 70-99 mg/dL BUN 21 [...] Jordy+SjoSSB) Reviewed date:09/11/2024 10:14:04 AM Interpretation: Performing Lab:[facility] [place], [address] [facility] Phone - [phone], Director - [facility] Notes/Report: MINI by IFA Rfx Titer/Pattern Negative Negative <1:80 Borderline 1:80 Positive >1:80 ICAP nomenclature: AC-0 For more information about Hep-2 cell patterns use ANApatterns.org, the official website for the International Consensus on Antinuclear Antibody (MINI) Patterns (ICAP). BAKERY TEAM LEADER Antibodies <0.2 0.0-0.9 AI [place] Antibodies <0.2 0.0-0.9 AI Antiscleroderma-70 Antibodies <0.2 0.0-0.9 AI Sjogren's Anti-SS-A 0.2 0.0-0.9 AI Sjogren's Anti-SS-B <0.2 0.0-0.9 AI Hep B Surface Ab qualatative Reviewed date:09/11/2024 10:14:31 AM Interpretation: Performing Lab:[facility] [place], [address] [facility] Phone - [phone], [facility] Notes/Report: Hep B Surface Ab, Qual Non Reactive Non Reactive: Not immune to HBV infection. Equivocal: Unable to determine if anti-HBs is present at levels consistent with immunity. Reactive: Anti-HBs concentration detected at greater than 10 mIU/mL. Individual is considered to be immune to infection with HBV. DS DNA-CRITHIDIA IFA W/REFLE X TO TITER-LABCO Reviewed date:09/11/2024 10:14:33 AM Interpretation: Performing Lab:[facility], [address] [facility] Phone - [phone], Director - [facility] Notes/Report: dsDNA Hiro zaragozae IFA Negative Negative QUANTIFERON(R)-TB GOLD PLUS, 1 TUBE Reviewed date:09/12/2024 10:43:37 AM Interpretation: Performing Lab:[facility], [address] [facility] Phone - [phone], Director - [facility] Notes/Report: QuantiFERON Incubation Incubation performed. QuantiFERON-TB Gold [...] Hepatitis Reviewed date:09/11/2024 10:13:56 AM Interpretation: Performing Lab:[facility], [address] [facility] Phone - [phone], [facility] Notes/Report: Hep A Ab, IgM Negative Negative [...] exists to indicate HCV infection. REASON FOR VISIT auto immune MEDICATIONS Medication SIG (Take, Route, Frequency, Duration) Notes Start Date End Date Status predniSONE 5 mg 1 tab(s) orally once [...] Use: Question Answer Notes Smoking Status nonsmoker VITAL SIGNS BMI 25.42 kg/m2 09/08/2024 Blood pressure systolic 144 mm Hg 09/09/19 25 Blood pressure diastolic 81 mm Hg 025 Heart Rate 64 /min 09/08/2024 Height 74 in 09/08/2024 Weight 198 lbs 09/08/2024 Encounters Encounter Location Date Provider Diagnosis [facility] 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 Complicated by DJD. Re-evaluate labs and xrays. Failed MTX, NSAIDs and TNF's. Discussed the fact that longterm steroids are not a great treatment option. Look into Rinvoq. Discussed BB warning- no hx of DVT or CVA 09/08/2024 HLA B27 positive (ICD-10 - Z15.89) Long hx of chronic inflammatory back pain- HLAB27 positive - PsA vs . Complicated by DJD. Re-evaluate labs and xrays. Failed MTX, NSAIDs and TNF's. Discussed the fact that longterm steroids are not a great treatment option. Look into Rinvoq. Discussed BB warning- no hx of DVT or CVA 09/08/2024 Cervical stenosis of spinal canal (ICD-10 - M48.02) Long hx of chronic inflammatory back pain- HLAB27 positive - PsA vs . Complicated by DJD. Re-evaluate labs and xrays. Failed MTX, NSAIDs and TNF's. Discussed the fact that longterm steroids are not a great treatment option. Look into Rinvoq. Discussed BB warning- no hx of DVT or CVA 09/08/2024 snf (current) use of systemic steroids (ICD-10 - Z79.52) Long hx of chronic inflammatory back pain- HLAB27 positive - PsA vs . Complicated by DJD. Re-evaluate labs and xrays. Failed MTX, NSAIDs and TNF's. 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 Look into Rinvoq. Discussed BB warning- no hx of DVT or CVA 09/08/2024 Other intervertebral disc degeneration, lumbar region with discogenic back pain only (ICD-10 - M51.360) Long hx of chronic inflammatory back pain- HLAB27 positive - PsA vs . Complicated by DJD. Re-evaluate labs and xrays. Failed MTX, NSAIDs and TNF's. Discussed the fact that longterm steroids are not a great treatment option. Look into Rinvoq. Discussed BB warning- no hx of DVT or CVA 09/08/2024 Encounter for other specified special examinations (ICD-10 - Z01.89) Long hx of chronic inflammatory back pain- HLAB27 positive - PsA vs . Complicated by DJD. Re-evaluate labs and xrays. Failed MTX, NSAIDs and TNF's. Discussed the fact that longterm steroids are not a great treatment option. Look into Rinvoq. Discussed BB warning- no hx of DVT or CVA 09/08/2024 Encounter for screening for respiratory tuberculosis (ICD-10 - Z11.1) Long hx of chronic inflammatory back pain- HLAB27 positive - PsA vs . Complicated by DJD. Re-evaluate labs and xrays. Failed MTX, NSAIDs and TNF's. 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 Look into Rinvoq. Discussed BB warning- no hx of DVT or CVA 09/08/2024 Degeneration of intervertebral disc of lumbar region, unspecified whether pain present (ICD-10 - M51.369) Long hx of chronic inflammatory back pain- HLAB27 positive - PsA vs . Complicated by DJD. Re-evaluate labs and xrays. Failed MTX, NSAIDs and TNF's. 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 Look into Rinvoq. Discussed BB warning- no hx of DVT or CVA PLAN OF TREATMENT Medication Medication Name Sig Start Date Stop Date Notes doxycycline monohydrate 100 mg 1 tab(s) orally 2 times a day benzonatate 200 mg 1 cap(s) orally 3 ti mes a day Pending Test Test Name Order Date X ray : Spines, lumbar- outside order X ray : Hand left- outside order 025 X ray : Hand right- outside order 2024 X ray : Spines, cervical- outside order 09/08/2024 X ray : SI joints- outside order 025 X ray : Hip, left- outside order 025 X ray : Hip, right- outside order 2024 X ray : Spines, thoracic- outside order 09/08/2024 Next Appt Details Follow Up: 2 Weeks with Jayda workman, Reason: Provider Name:Jenn wills, 10/01/2024 11:20:00 AM, [address] [facility], [address], [place], [place], [id number], Progress Notes * Examination Category Sub-Category Detail Notes Category Not es Rheumatology Cervical Spine normal range of motion Lumbar spine: normal forward and l ateral bending Thoracic Spine: normal Sacroiliac: normal Fibromyalgia Tender Points: none General Constitutional: No acute distress HEENT: PERRLA, Neck supple, Normal sclerae and conjunctivae Cardiovascular RSR, No murmurs, Nor mal peripheral pulsations, No edema Lungs: clear to ausculation Abdomen: soft, no organomegal y or masses /Rectal: not done Skin: No cutaneous lesions . No subcutaneous nodules noted in the 4 extremities Neurological: No focal neurologica l findings Heme/Lymphatic: No cervical, axillar y, or inguinal adenopathy Psych: Alert, oriented x 3, Normal affect Musculoskeletal: Normal strength. No muscle atrophy Joint Exam Shoulders No swelling. No tenderness. NROM. Elbows No swelling. No tend erness. NROM. Wrists No swelling. No tend erness. NROM. Hips No tenderness, kristian l ROM, no instability or deformity Knees No swelling, no tend erness, NROM. No instability or deformity Ankles No swelling, no tend erness, NROM., No instability or deformity. All MCPs No swelling, no tend erness, no deformity unless noted below. All PIPs No swelling, no tend erness, no deformity unless noted below. All DIPs No swelling, no tend erness, no deformity unless noted below. All MTPs No swelling, no tend erness, NROM, no deformity unless noted below. History and Physical Notes * HPI (History of Present Illness) Category Sub-Category Detail Notes Category Not es Rheumatology Joint pain He is coming back in for re-evaluation- he was last seen in this office in 2019. Hx of hx of PsA/ (HLAB27 positive) along with lumbar/cervical DJD/stenosis. He also has a long hx of throat pain- seen ENT, oral surgeon etc and no dx made. 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 Has undergone lip and salivary gland biopsies which were negative. He still has alot of spinal pain- neck, thoracic, lumbar and lateral hips. Hands and feet often quite stiff. He has to stretch for a while after sleeping or inactivity. No swollen joints, rashes, dactylitis or iritis. Failed MTX and TNF's. Failed Cosentyx, Naproxen, Diclofenac and Celebrex. NSAIDs also cause GI upset. The only thing that helps is steroids. Eyes are dry. Hx of occasional rashes on arms and posterior legs- no dx made. Joint swelling Fever Dyspnea/SOB Cough Lymphadenopathy Chills fatigue morning stiffness myalgias infection dry eyes dry mouth Raynaud's/ dicoloration of fingers digital ulcerations rash dysphagia photosensitivity Back pain History of gout Headaches Psoriasis Oral sores Iritis, conjuctivitis, uveiitis Numbness or tingling Family History of Rheumatic Disease Alopecia chest pain Physical Examination Category Sub-Category Detail Notes Section Note s MDHAQ Summary Function (0-10):: 2.7 Pain (0-10):: 3 Patient Global Assessment of Disease Activity (0 -10):: 6.5 RAPID3 Score (0-30):: 12.2 Physician Global Assessment of Disease Activity (0-10):: 2 Prognosis Very Good w/tx Erosive Damage No
--- OUTSIDE RECORDS SUMMARY | 2024-09-21 17:37 | XMS_ITS ---
Author Organization [facility] Address [address] [place], [place] [phone] Care Team Providers Care Well Logger Name Role Phone LALO DON MD Primary Care Provider Zeynep Lyn [phone] REASON FOR VISIT Rinvoq-HouseRX MEDICATIONS Medication SIG (Take, Route, Frequency, Duration) Notes Start Date End Date Status Rinvoq 15 mg 1 tab(s) orally once a day for 30 days 09/14/2024 Active Encounters Encounter Location Date Provider Diagnosis [facility] [address] [place], [place] [phone] 09/14/2024 Zeynep Jacobson PLAN OF TREATMENT Medication Medication Name Sig Start Date Stop Date Notes Rinvoq 15 mg 1 tab(s) orally once a day for 30 days 2024 Next Appt Details Provider Name:Jenn wills, 10/01/2024 11:20:00 AM, [address], [address], [place], [place], [phone],
--- OUTSIDE RECORDS SUMMARY | 2024-09-21 17:37 | XMS_ITS | Clinical Summary ---
Author Organization [facility] Address [address] [place] [phone] Phone Care Team Providers Care Surveyor Helper Rod Name Role Phone Tobias Lemon MD Primary Care Prov ider Unavailable Social History Tobacco Use Types Packs/Day Years Used Date Smoking Tobacco: Never Assessed Sex and Gender Information Value Date Recorded Sex Assigned at Not on file Legal Sex Male 7:25 PM [employer] Gender Identity Not on file Sexual Orientation Not on file Plan of Treatment Health Maintenance Due Date Last Done Comments DTAP/TDAP/TD VACCINES (1 - Tdap) 1991 HEPATITIS B VACCINES (1 of 3 - 19+ 3-dose series) 03/1991 COLORECTAL SCREENING 2017 Colorectal Cancer Screening 2017 FIT-DNA Q 3 years 2017 FIT/FOBT Q 1 year 2017 Flex Sig/CT Colonography Q 5 years 2017 ZOSTER VACCINE (1 of 2) 2022 INFLUENZA VACCINE (#1) 2024 Insurance [facility] BLUE ACCESS/TRUE BLUE PPO Care Teams Surveyor Helper Rod Relationship Specialty Start Date End Date Tobias Lemon MD PCP - General 05/01/12
--- OUTSIDE RECORDS SUMMARY | 2024-09-21 17:38 | XMS_ITS | Data Portability ---
Author Organization [facility], autoECommer Address [address] [place] [address] Care Team Providers Care Router Setter Name Role Phone REUBEN, MOJESSICACECILIA Primary Care Provider Assessment Encounter Date Assessment Date Assessment LastModified by Organization Details LastModified Time 09/13/2016 09/13/2016 Patient presented for follow up. Studies ordered as below. Discussed plan with patient/caregiv er, who expressed understanding. Follow up as noted below. [email or web address] Not available 09/13/2016 10:18:03 12/14/2016 12/14/2016 Patient presented for follow up. Studies ordered as below. Discussed plan with patient/caregiv er, who expressed understanding. Follow up as noted below. [email or web address] Not available 12/14/2016 10:05:34 01/22/2017 01/22/2017 Cough The patient presents dry cough. The patient's condition is stable. Based on the findings today we will begin medication therapy. Further workup as below. Reviewed symptomatic care instructions, the expected course of these illnesses and explained that coughing can persist for some time. Provided precautions for signs of worsening disease and instructions on contacting us if symptoms worsen. [email or web address] Not available 01/22/2017 12:51:47 03/07/2017 03/07/2017 Patient presented for follow up. Studies ordered as below. Discussed plan with patient/caregiv er, who expressed understanding. Follow up as noted below. [email or web address] Not available 03/07/2017 10:47:49 06/05/2017 06/05/2017 Patient presented for follow up. Studies ordered as below. Discussed plan with patient/caregiv er, who expressed understanding. Follow up as noted below. [email or web address] Not available 06/05/2017 12:22:02 Plan of Treatment Reminders Order Date Submit Date Provider Last Modified By Organization Details Last Modified Time Details Appointments None recorded. Lab CBC w/ auto diff 2017 018 [email or web address], [address], [address], [place], [address], 8 08:38:33 CMP, serum or plasma 2017 018 [email or web address] [facility], [address], [address], [place], [address], 8 08:38:34 TSH, serum or plasma 2017 018 [email or web address] [facility], [address], [address], [place], [address], 8 08:38:34 magnesium, serum or plasma 2017 018 [email or web address] [facility], [address], [address], [place], [address], 8 08:38:34 iron + TIBC + ferritin, serum 2017 018 [email or web address], [address], [address], [place], [address], 8 08:38:34 vitamin D, 25-hydroxy , total, serum 2017 018 [email or web address] [facility], [address], [address], [place], [address], 8 08:38:33 CBC w/ auto diff 2017 018 [email or web address] [employer] [facility], [address], [address], [place], [address], 8 08:49:40 CMP, serum or plasma 2017 018 [email or web address] [facility], [address], [address], [place], [address], 8 08:49:40 CBC w/ auto diff 2016 017 [email or web address] [facility], [address], [address], [place], [address], 7 09:03:04 testostero ne, free + total, serum [email or web address] [facility], [address], [address], [place], [address], 7 08:32:51 vitamin D, 25-hydroxy , total, serum 2016 [facility]17 [facility], [address], [address], [place], [address], 7 02:59:37 H pylori urea breath test, co2 infrared 2016 017 [facility], [address], [address], [place], [address], 7 02:59:36 magnesium, serum or plasma 2016 017 [facility], [address], [address], [place], [address], 7 02:59:34 lipid panel w/ direct LDL, serum 2016 017 [facility], [address], [address], [place], [address], 7 02:59:34 CMP, serum or plasma 2016 017 [facility], [address], [address], [place], [address], 7 02:59:35 TSH, serum or plasma 2016 017 [employer] [facility], [address], [address], [place], [address], 7 02:59:37 CBC w/ auto diff 2016 017 [employer] [facility], [address], [address], [place], [address], 7 02:59:36 vitamin B12 + folate, serum or blood 2016 017 [employer] [facility], [address], [address], [place], [address], 7 02:59:37 testostero ne, free + total, serum 2016 017 [employer] [facility], [address], [address], [place], [address], 7 02:59:38 erythrocyt e sedimentat ion rate by westergren method 2016 017 [email or web address] [facility], [address], [address], [place], [address], 7 02:59:35 Referral physical therapist referral 2017 Birdie ospina [facility], [address], [address], [place], [address], 8 09:57:08 ENT referral 2017 Birdie Vasquez MD, [address] [place], [address], 8 09:57:09 optometris t referral [email or web address] [facility], [address] , [place], [address], 8 09:57:[address] referral 2016 017 [email or web address] Clark Danielson MD, [address] [facility], [place], [address], 7 09:14:55 Procedures None recorded. Surgeries None recorded. Imaging XR, ankle, 3 or more view 2017 018 Not available 8 09:08:50 XR, ribs, bilateral 2016 017 [facility], [address], [address], [place], [address], 7 13:58:33 XR, chest, 2 view 2016 017 [facility], [address], [address], [place], [address], 7 17:21:54 XR, chest, 2 view 2016 017 [facility], [address], [address], [place], [address], 7 15:00:11 bone density 2016 017 [facility], [facility], [address], [place], [address], 7 11:30:59 electrocar diogram 2016 017 [facility], [facility], [address], [place], [address], 7 12:30:04 US, echocardio gram 2016 017 [facility], [facility], [address], [place], [address], 7 12:23:30 Medication Orders Cialis 10 mg tablet 2017 018 [facility]2510, [address] [place], [address], 8 12:47:09 ProAir HFA 90 mcg/actuat ion aerosol inhaler 2017 018 [facility], [address] [place], [address], 8 11:40:05 Celebrex 200 mg capsule 2017 018 [facility], [address] [place], [address], 8 11:40:06 baclofen 10 mg tablet 2017 018 [facility], [address] [place], [address], 8 11:40:05 ProAir HFA 90 mcg/actuat ion aerosol inhaler 2016 017 [facility]2510, [address] [place], [address], 7 13:22:37 Spiriva Respimat 1.25 mcg/actuat ion solution for inhalation 2016 017 [facility]acy [facility]2510, [address] [place], [address], 8 11:33:47 baclofen 10 mg tablet 2016 017 [facility], [address] [place], [address], 7 13:22:36 azithromyc in 250 mg tablet 2016 017 [facility]2510, [address] [place], [address], 8 11:29:11 Levaquin 500 mg tablet 2016 017 [email or web address] [facility], [address] [place], [address], 7 12:55:43 Medrol (Hossein) 4 mg tablets in a dose pack 2016 017 [email or web address] [facility]25[facility], [address] [place], [address], 7 12:55:49 Patient TargetsNo targets recorded. Patient Instructions Encounter Date Encounter Id Patient Instructions Last Modified By Organization Details Last Modified Time 09/13/2016 [id number] lightheadedness or faintness: care instructions GRACIE Not available 09/15/2016 15:15:37 high cholesterol : care instructions GRACIE Not available 09/15/2016 15:15:53 12/14/2016 [id number] ankylosing spondylitis: care instructions GRACIE Not available 12/14/2016 12:38:51 ankylosing spondylitis: exercises GRACIE Not available 12/14/2016 12:38:51 01/22/2017 [id number] pulmonary functi on test* [email or web address] Not available 01/22/2017 13:22:34 03/07/2017 [id number] controlling your asthma: care instructions [email or web address] Not available 03/07/2017 11:40:03 learning about asthma [email or web address] Not available 03/07/2017 11:40:03 ankle sprain: ca re instructions [email or web address] Not available 03/07/2017 11:40:03 high cholesterol : care instructions [email or web address] Not available 03/07/2017 11:40:03 06/05/2017 [id number] controlling your asthma: care instructions [email or web address] Not available 06/05/2017 12:47:07 learning about asthma [email or web address] Not available 06/05/2017 12:47:07 (GEORGETTE) ankle brachial index* GRACIE Not available 06/06/2017 12:28:39 ankylosing spondylitis: care instructions mshenouda Not available 06/05/2017 12:47:07 ankylosing spondylitis: exercises [email or web address] Not available 06/05/2017 12:47:07 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 Referring Physician: Jeffery Cyr, Internal Medicine, Encounter Date: 09/13/2016 Referring Physician: Jeffery Cyr, Internal Medicine, Encounter Date: 03/07/2017 ENT Referral for On examinat ion - dysphonia Referring Physician: Jeffery Cyr, Internal Medicine, Encounter Date: 03/07/2017 Threader Referral for Scr eening procedure Referring Physician: Jeffery Cyr, Internal Medicine, Encounter Date: 03/07/2017 Results Created Date Observation Date Name Description Value Unit Range Abnormal Flag Note LastModifiedBy Organization Detail LastModifiedTime 01/23/20 17 01/22/2017 pulmo nary funct ion test* pre fev1 Not Available [facility] [address], [place], [address], 01/22/2017 13:18:38 01/23/20 17 01/22/2017 pulmo nary funct ion test* post fev1 Not Available [facility] [address], [place], [address], 01/22/2017 13:18:38 01/23/20 17 01/22/2017 pulmo nary funct ion test* fev1 Not Available [facility], [facility] [address], [place], [address], 01/22/2017 13:18:38 01/23/20 17 01/22/2017 pulmo nary funct ion test* pre fef Not Available [facility] [address], [place], [address], 01/22/2017 13:18:38 01/23/20 17 01/22/2017 pulmo nary funct ion test* post fef Not Available [facility] [address], [place], [address], 01/22/2017 13:18:38 01/23/20 17 01/22/2017 pulmo nary funct ion test* fe Not Available [facility], [facility] [address], [place], [address], 01/22/2017 13:18:38 09/16/19 17 09/19/2016 lipid panel , serum cholesterol, total 171 mg/dL 125-20 0 normal Not Available [address], [address], 09/19/2016 02:59:34 09/16/19 17 09/19/2016 lipid panel , serum HDL cholesterol 40 mg/dL > or = 40 normal Not Available [address] [place], [address], 09/19/2016 02:59:34 09/16/19 17 09/19/2016 lipid panel , serum triglyceride s 108 mg/dL <150 normal Not Available [address] [place], [address], 09/19/2016 02:59:34 09/16/1909/19/2016 lipid panel , serum LDL-choleste rol 109 mg/dL _(jayesh c) <130 normal Sara able range <100 mg/dL for patie nts with CHD or diabe regis and <70 mg/dL for diabe tic patie nts with known heart disea se. Not Available [address], [address], 09/19/2016 02:59:34 09/16/19 17 09/19/2016 lipid panel , serum chol/HDLC ratio 4.3 (calc ) < or = 5.0 normal Not Available [facility] [address], [address], 09/19/2016 02:59:34 09/16/19 17 09/19/2016 lipid panel , serum non HDL cholesterol 131 mg/dL _(jayesh c) normal Targe t for non-H DL andreina stero l is 30 mg/dL highe r than LDL andreina stero l targe t. Not Available [address], [address], 09/19/2016 02:59:34 09/16/1909/19/2016 magne sium, serum or plasm a magnesium 2.2 mg/dL 1.5-2. 5 normal Not Available [address], [address], 09/19/2016 02:59:34 09/16/1909/19/2016 CMP, serum or plasm a glucose 81 mg/dL 65-99 normal Fasti ng refer ence inter tessa Not Available [address], [address], 09/19/2016 02:59:35 09/16/1909/19/2016 CMP, serum or plasm a urea nitrogen (BUN) 15 mg/dL 7-25 normal Not Available [address], [address], 09/19/2016 02:59:35 09/16/1909/19/2016 CMP, serum or plasm a creatinine 1.18 mg/dL 0.60-1 .35 normal Not Available [address], [address], 09/19/2016 02:59:35 09/16/1909/19/2016 CMP, serum or plasm a eGFR non-afr. icelandic 75 mL/mi n/1.7 3m2 > or = 60 normal Not Available [address], [address], 09/19/2016 02:59:35 09/16/1909/19/2016 CMP, serum or plasm a eGFR 86 mL/mi n/1.7 3m2 > or = 60 normal Not Available [address], [address], 09/19/2016 02:59:35 09/16/19 17 09/19/2016 CMP, serum or plasm a BUN/creatini ne ratio NOT APPLIC ABLE (calc ) 6-22 Not Available [address], [address], 09/19/2016 02:59:35 09/16/19 17 09/19/2016 CMP, serum or plasm a sodium 139 mmol/ L 135-14 6 normal Not Available [address], [address], 09/19/2016 02:59:35 09/16/1909/19/2016 CMP, serum or plasm a potassium 4.5 mmol/ L 3.5-5. 3 normal Not Available [address], [address], 09/19/2016 02:59:35 09/16/1909/19/2016 CMP, serum or plasm a chloride 104 mmol/ L 98-110 normal Not Available [address], [address], 09/19/2016 02:59:35 09/16/1909/19/2016 CMP, serum or plasm a carbon dioxide 27 mmol/ L 20-31 normal Not Available [address], [address], 09/19/2016 02:59:35 09/16/1909/19/2016 CMP, serum or plasm a calcium 9.5 mg/dL 8.6-10 .3 normal Not Available [employer] [address], [address], 09/19/2016 02:59:35 09/16/1909/19/2016 CMP, serum or plasm a protein, total 6.9 g/dL 6.1-8. 1 normal Not Available [employer] [address], [address], 09/19/2016 02:59:35 09/16/19 17 09/19/2016 CMP, serum or plasm a albumin 4.7 g/dL 3.6-5. 1 normal Not Available [address], [address], 09/19/2016 02:59:35 09/16/19 17 09/19/2016 CMP, serum or plasm a globulin 2.2 g/dL_ (calc ) 1.9-3. 7 normal Not Available [address], [address], 09/19/2016 02:59:35 09/16/19 17 09/19/2016 CMP, serum or plasm a albumin/glob ulin ratio 2.1 (calc ) 1.0-2. 5 normal Not Available [address], [address], 09/19/2016 02:59:35 09/16/19 17 09/19/2016 CMP, serum or plasm a bilirubin, total 1.4 mg/dL 0.2-1. 2 high Not Available [address], [address], 09/19/2016 02:59:35 09/16/19 17 09/19/2016 CMP, serum or plasm a alkaline phosphatase 50 U/L 40-115 normal Not Available [facility] [address], [address], 09/19/2016 02:59:35 09/16/1909/19/2016 CMP, serum or plasm a AST 17 U/L 10-40 normal Not Available [address], [address], 09/19/2016 02:59:35 09/16/1909/19/2016 CMP, serum or plasm a ALT 20 U/L 9-46 normal Not Available [address], [address], 09/19/2016 02:59:35 09/16/19 17 09/19/2016 eryth rocyt e sedim entat ion rate by vernon sellers metho d sed rate by modified dale 2 mm/h < or = 15 normal Not Available [address], [address], 09/19/2016 02:59:35 09/16/1909/19/2016 CBC w/ auto diff white blood cell count 4.2 thous and/u L 3.8-10 .8 normal Not Available [address], [address], 09/19/2016 02:59:36 09/16/1909/19/2016 CBC w/ auto diff red blood cell count 5.24 izabella on/uL 4.20-5 .80 normal Not Available [address], [address], 09/19/2016 02:59:36 09/16/1909/19/2016 CBC w/ auto diff hemoglobin 15.8 g/dL 13.2-1 7.1 normal Not Available [address], [address], 09/19/2016 02:59:36 09/16/1909/19/2016 CBC w/ auto diff hematocrit 45.9 % 38.5-5 0.0 normal Not Available [address], [address], 09/19/2016 02:59:36 09/16/1909/19/2016 CBC w/ auto diff MCV 87.6 fL 80.0-1 00.0 normal Not Available [address], [address], 09/19/2016 02:59:36 09/16/1909/19/2016 CBC w/ auto diff MCH 30.2 pg 27.0-3 3.0 normal Not Available [address], [address], 09/19/2016 02:59:36 09/16/19 17 09/19/2016 CBC w/ auto diff MCHC 34.4 g/dL 32.0-3 6.0 normal Not Available [address], [address], 09/19/2016 02:59:36 09/16/19 17 09/19/2016 CBC w/ auto diff RDW 12.5 % 11.0-1 5.0 normal Not Available [address], [address], 09/19/2016 02:59:36 09/16/1909/19/2016 CBC w/ auto diff platelet count 253 thous and/u L 140-40 0 normal Not Available [address], [address], 09/19/2016 02:59:36 09/16/19 17 09/19/2016 CBC w/ auto diff MPV 10.3 fL 7.5-12 .5 normal Not Available [address], [address], 09/19/2016 02:59:36 09/16/1909/19/2016 CBC w/ auto diff absolute neutrophils 2020 cells /uL 1500-7 800 normal Not Available [address], [address], 09/19/2016 02:59:36 09/16/1909/19/2016 CBC w/ auto diff absolute lymphocytes 1646 cells /uL 850-39 00 normal Not Available [address], [address], 09/19/2016 02:59:36 09/16/1909/19/2016 CBC w/ auto diff absolute monocytes 433 cells /uL 200-95 0 normal Not Available [address] [place], [address], 09/19/2016 02:59:36 09/16/19 17 09/19/2016 CBC w/ auto diff absolute eosinophils 59 cells /uL 15-500 normal Not Available [address] [place], [address], 09/19/2016 02:59:36 09/16/1909/19/2016 CBC w/ auto diff absolute basophils 42 cells /uL 0-200 normal Not Available [address] [address] [place], [address], 09/19/2016 02:59:36 09/16/1909/19/2016 CBC w/ auto diff neutrophils 48.1 % normal Not Available [address] [address] [place], [address], 09/19/2016 02:59:36 09/16/1909/19/2016 CBC w/ auto diff lymphocytes 39.2 % normal Not Available [address] [address] [place], [address], 09/19/2016 02:59:36 09/16/1909/19/2016 CBC w/ auto diff monocytes 10.3 % normal Not Available [address] [address] [place], [address], 09/19/2016 02:59:36 09/16/1909/19/2016 CBC w/ auto diff eosinophils 1.4 % normal Not Available [address] [address] [place], [address], 09/19/2016 02:59:36 09/16/1909/19/2016 CBC w/ auto diff basophils 1.0 % normal Not Available [address] [address] [place], [address], 09/19/2016 02:59:36 09/16/1909/19/2016 H pylor i urea breat h test, co2 infra red helicobacter pylori, urea breath test NOT DETECT ED not detect ed normal Antim icrob ials, adam n pump inhib itors , and bismu th prepa ratio ns are known to suppr ess H. pylor i, and inges tion of these prior to H. pylor i diagn ostic testi ng may lead to false negat bertha resul ts. If clini lucrecia indic ated, the test may be repea vincent on a new speci men obtai aline two weeks after disco ntinu ing treat ment. Not Available [address] [address] [place], [address], 09/19/2016 02:59:36 09/16/1909/19/2016 TSH, serum or plasm a TSH 0.95 mIU/L 0.40-4 .50 normal Not Available [employer] [address] [place], [address], 09/19/2016 02:59:36 09/16/1909/19/2016 vitam in B12 + folat e, serum or blood vitamin B12 448 pg/mL 200-11 00 normal Not Available [address] [place], [address], 09/19/2016 02:59:37 09/16/1909/19/2016 vitam in B12 + folat e, serum or blood folate, serum >24.0 NG/mL normal Refer ence Range Low: <3.4 Borde rline : 3.4-5 .4 Shena l: >5.4 Not Available [address] [place], [address], 09/19/2016 02:59:37 09/16/1909/19/2016 vitam in D, 25-hy droxy , total , serum vitamin D,25-oh,tota l,ia 85 NG/mL 30-100 normal Vitam in D Statu s 25-OH Vitam in D: Defic iency : <20 ng/mL Insuf ficie ncy: 20 - 29 ng/mL Optim al: > or = 30 ng/mL For 25-OH Vitam in D testi ng on patie nts on D2-bearden pplem entat ion and patie nts for whom quant itati on of D2 and D3 fract ions is requi red, the [employer] Ass[employer] eD(TM ) 25-OH VIT D, (D2,D 3), LC/MS /MS is recom debra d: order code 13010 (obinna ents >2yrs ). For more infor amy dobbs on this test, go to: http: //[facility] toi griffith[facility] gnost ics.c om/fa q/FAQ 163 (This link is being provi ded for infor amy nal/e ducat ional purpo ses only. ) Not Available [facility] [address] [address] [place], [address], 09/19/2016 02:59:37 09/16/1909/19/2016 testo stero ne, free + total , serum testosterone , total, lc/MS/MS 378 NG/dL 250-11 00 Not Available [employer] [address] [address] [place], [address], 09/19/2016 02:59:38 09/16/1909/19/2016 testo stero ne, free + total , serum testosterone , free 47.6 pg/mL 46.0-2 24.0 Not Available [employer] [address] [address] [place], [address], 09/19/2016 02:59:38 09/16/1909/19/2016 testo stero ne, free + total , serum testosterone ,bioavailabl e 100.0 NG/dL 110.0- 575.0 low Not Available [facility] [address], [address], 09/19/2016 02:59:38 09/16/1909/19/2016 testo stero ne, free + total , serum sex hormone binding globulin 34 nmol/ L 10-50 Not Available [facility] [address], [address], 09/19/2016 02:59:38 09/16/19 17 09/19/2016 testo stero ne, free + total , serum albumin,seru m 4.6 g/dL 3.6-5. 1 Not Available [address] [address] [place], [address], 09/19/2016 02:59:38 09/28/19 17 09/28/2016 lh + FSH, serum FSH 4.3 mIU/m L 1.6-8. 0 normal Not Available [facility] [address] [address] [place], [address], 09/28/2016 07:55:42 09/28/19 17 09/28/2016 lh + FSH, serum LH 3.8 mIU/m L 1.5-9. 3 normal Not Available [address] [address] [place], [address], 09/28/2016 07:55:42 09/15/19 17 09/13/2016 elect thiago pardo am No observ ation record ed. [facility], [facility] [address] [facility] [address], [place], [address], 12/14/2016 10:32:30 09/27/19 17 09/13/2016 US, echoc ardio gram No observ ation record ed. [facility], [facility] [address], [place], [address], 12/14/2016 10:32:30 12/20/19 17 12/15/2016 XR, chest , 2 view No observ ation record ed. [facility] [address], [place], [address], 12/19/2016 18:26:16 01/24/20 17 01/22/2017 pulmo nary funct ion test* No observ ation record ed. [facility], [facility] [address], [place], [address], 03/07/2017 11:28:33 01/29/20 17 01/22/2017 XR, ribs, bilat eral No observ ation record ed. [facility] [address], [place], [address], 03/07/2017 11:28:33 03/08/19 18 03/07/2017 XR, foot, 3 or more view No observ ation record ed. [facility] [address], [place], [address], 06/05/2017 12:40:55 05/16/19 18 05/15/2017 biops y lip (PROC ) No observ ation record ed. [facility] Not Available 2017 12:40:55 08/22/19 19 08/20/2018 XR, cervi jayesh spine , 4 or 5 view No observ ation record ed. [email or web address] [address], [place], [address], 08/26/2018 09:03:09 Result Notes None recorded. Problems Name Problem SNOMED Code Status Onset Date Resolution Date Notes Provider Name and Address Organization Details Recorded Time Gastroes ophageal reflux disease 314347270 Active 2015 LES Love [address], [place], [address], [facility] 6 11:46:52 Rheumato id arthriti s 81820578 Completed 201502/13/2016 LES Jorgensen [address], [place], [address], [facility] 6 12:16:37 Hyperlip idemia 55790772 Active 2015 LES Love [address], [place], [address], [facility] 6 11:56:41 Chronic back pain 850105623 Active 2015 sees rheumotol ogy on reg basis , on low dose prednison e Jeffery Cyr MD [address], [place], [address], [facility] 7 10:57:46 Family history of coronary arterios clerosis 694987861 Active 2016 Jeffery Cyr MD [address], [place], [address], [facility] 7 10:51:30 Gastroes ophageal reflux disease without esophagi tis 936222455 Active 2016 Jeffery Cyr MD [address], [place], [address], [facility] [facility] 7 10:58:04 Vitamin D deficien cy 83827390 Active 2016 Jeffery Cyr MD [address], [place], [address], [facility] 7 10:58:31 On examinat ion - dysphoni a Active 2016 sees ENT on reg basis Jeffery Cyr MD [address], [place], [address], [facility] 7 11:00:23 Ankylosi ng spondyli tis 8696750 Active 2016 Jeffery Cyr MD [address], [place], [address], [facility] 7 10:41:09 Pleuriti c pain 7866009 Completed 201601/22/2017 JOSIE ELMORE APN [address], [place], [address], [facility] 7 13:06:28 Asthma 069726751 Active 2017 Jeffery Cyr MD [address], [place], [address], [facility] 8 11:34:04 Problem Notes None recorded. Procedures Surgical History Date Name Laterality Status Provider Name and Address Organization Details Recorded Time 6 Unlisted px phrnx adnd/tnsl completed MELODIE Love- [address], [place], [address], [facility] 02/13/2016 12:19:28 Ankle arthroscopy/s urgery completed Patsy Montana [facility] 02/13/2016 11:55:48 Imaging Results None recorded. Procedure Notes None recorded. Medical Equipment None Reported. Allergies Allergen ID Allergen Name Allergen Category Reaction Reaction Severity Criticality Documentation Date Start Date Code Code System Note Provider Name and Address Organization Details Recorded Time 4680 codeine medicatio n nausea Not available Not available 02/13/2016 2670 RxNorm REMY Love [address], [place], [address], [facility] 6 11:45:31 Medications Name Sig Start Date Stop Date Status Note LastModified by Organization Details LastModified Time celecoxib 200 mg capsule TAKE ONE CAPSULE BY MOUTH TWICE A DAY 2017 active Not Available Not Available Not Avai lable prednisone 10 mg tablet 09/13 completed Not Available Not Available Not Available azithromyc in 250 mg tablet TAKE 2 TABLETS (500 MG) BY ORAL ROUTE ONCE DAILY FOR 1 DAY THEN 1 TABLET (250 MG) BY ORAL ROUTE ONCE DAILY FOR 4 DAYS 03/07 completed Not Available Not Available Not Available ibuprofen 800 mg tablet 09/13 completed Not Available Not Available Not Available Lidocaine Viscous 2 % mucosal solution 01/22 completed Not Available Not Available Not Available benzonatat e 200 mg capsule 09/13 completed Not Available Not Available Not Available sucralfate 1 gram tablet 02/12 completed Not Available Not Available Not Available prednisone 20 mg tablet Take 1 tablet every day by oral route for 6 days. 09/13 completed Not Available Not Available Not Available prednisone 5 mg tablet 03/07 completed Not Available Not Available Not Available tramadol 50 mg tablet active Not Available Not Available Not Available ketorolac 10 mg tablet 02/12 completed Not Available Not Available Not Available nortriptyl ine 25 mg capsule 02/12 completed Not Available Not Available Not Available baclofen 10 mg tablet Take 1 tablet 3 times a day by oral route as needed. 2017 active Not Available Not Available Not Avai lable hydrocodon e 7.5 mg-acetami nophen 325 mg tablet 02/12 completed Not Available Not Available Not Available ranitidine 150 mg tablet 02/12 completed Not Available Not Available Not Available dexamethas one 4 mg tablet 02/12 completed Not Available Not Available Not Available lidocaine 5 % topical patch 09/13 completed Not Available Not Available Not Available pravastati n 20 mg tablet Take 1 tablet every day by oral route at bedtime. 03/14 completed Not Available Not Available Not Available azelastine 137 mcg (0.1 %) nasal spray active Not Available Not Available Not Available levofloxac in 500 mg tablet Take 1 tablet every 24 hours by oral route. 01/22 completed Not Available Not Available Not Available methylpred nisolone 4 mg tablets in a dose pack Take 1 dose pk by oral route as directed . 01/22 completed Not Available Not Available Not Available cyclobenza laura 5 mg tablet 09/13 completed Not Available Not Available Not Available Cialis 5 mg tablet 09/13 completed rarely uses Not Available Not Available Not Available Cialis 10 mg tablet Take 1 tablet every day by oral route as needed for 90 days. 2017 active Not Available Not Available Not Avai lable Boostrix Tdap 2.5 Lf unit-8 mcg-5 Lf/0.5 mL intramuscu lar syringe 01/22 completed Not Available Not Available Not Available Lyrica 75 mg capsule 02/12 completed Not Available Not Available Not Available ProAir HFA 90 mcg/actuat ion aerosol inhaler Inhale 2 puffs every 8 hours by inhalati on route as needed. 2017 active Not Available Not Available Not Avai lable Dexilant 60 mg capsule, delayed release active Not Available Not Available Not Available Cosentyx Pen 150 mg/mL subcutaneo us pen injector active Not Available Not Available Not Available Spiriva Respimat 1.25 mcg/actuat ion solution for inhalation Inhale 2 puffs every day by inhalati on route. 03/07 completed Not Available Not Available Not Available Flucelvax Quad 6836-8321 (PF) 60 mcg (15 mcg x 4)/0.5 mL IM syringe 01/22 completed Not Available Not Available Not Available Vitals Date Recorded Heart rate Body mass index (BMI) Body weight Provider Name and Address Organization Details Last Updated DateTime 03/07/2017 80 /min 26.7 kg/m2 86499.21 g Jeffery Cyr MD [address], [place], [address] 03/07/2017 11:28:33 Date Recorded Body height Respiratory rate Body temperature Systolic And Diastolic Provider Name and Address Organization Details Last Updated DateTime 03/07/2017 187.96 cm 18 /min 97.8 [degF] 132/80 mm[Hg] Lauryn Espinoza [facility] 8 10:49:27 Date Recorded Heart rate Provider Name an d Address Organization Details Last Updated DateTime 06/05/2017 78 /min Jeffery Cyr MD [address], [place], [address] 06/05/2017 12:38:36 Date Recorded Body height Respiratory rate Body temperature Body mass index (BMI) Body weight Systolic And Diastolic Provider Name and Address Organization Details Last Updated DateTime 8 187.96 cm 16 /min 97.8 [degF] 26.7 kg/m2 02183.2 1 g 135/86 mm[Hg] Torie Hunter [facility] 8 12:22:12 Date Recorded Body height Body mass index (BMI) Body weight Respiratory rate Body temperature Heart rate Systolic And Diastolic Provider Name and Address Organization Details Last Updated DateTime 7 187.96 cm 25.7 kg/m2 90044.4 7 g 18 /min 97.2 [degF] 73 /min 111/61 mm[Hg] Lauryn Espinoza [facility] 7 10:20:37 Date Recorded Body height Body mass index (BMI) Body weight Respiratory rate Heart rate Systolic And Diastolic Provider Name and Address Organization Details Last Updated DateTime 7 187.96 cm 26.2 kg/m2 48442.8 4 g 18 /min 56 /min 137/79 mm[Hg] Lauryn Espinoza [facility] 7 10:07:49 Date Recorded Body height Body mass index (BMI) Body weight Body temperature Heart rate Systolic And Diastolic Provider Name and Address Organization Details Last Updated DateTime 7 187.96 cm 26.7 kg/m2 16227.2 1 g 96.9 [degF] 70 /min 150/81 mm[Hg] Alon Gamez [facility] 7 12:42:03 Social History Question Answer Notes LastModified by Organizat ion Details LastModified Time Tobacco Smoking Status [facility] 11:54:06 Which Illicit Or Recreational Drugs Have You Used? No Information not available 09/13/2016 Live Alone Or With Others? With Others Information not available 09/13/2016 Marital Status Informatio n not available 09/13/2016 What Was The Date Of Your Most Recent Tobacco Screening? 06/05/2017 Information not available 09/24/2018 Sex: Unknown Functional Status Question Answer Note LastModified by Organizat ion Details LastModified Time What is your level of alcohol consumption? Occasional Information not available 09/13/2016 Are you currently employed? Yes Information not available 09/13/2016 Are you able to care for yourself? Yes Information not available 09/13/2016 What is your occupation? [employer] Information not available 09/13/2016 Mental Status None recorded. Family History Relationship Description Onset Age of this Age Resolved Age Notes LastModified by Organization Details LastModified Time Mother Heart disease 62 [email or web address] Not available 2016 10:51:12 Mother Arthritis [email or web address] Not availab le 02/13/2016 11:53:55 Father Heart disease [email or web address] Not available 2015 11:57:39 Medical History No medical history recorded. Immunizations Vaccine Type Date Status Note Provider Nam e and Address Organization Details Recorded Time Influenza, split virus, quadrivalent, preservative 7 completed Alon Gamez [facility] 01/22/2017 12:43:11 Influenza, split virus, quadrivalent, preservative 7 completed Jeffery Cyr MD [address], [place], [address], [facility] 03/07/2017 11:40:41 Td(adult) unspecified formulation 7 completed Jeffery Cyr MD [address], [place], [address], [facility] 03/07/2017 11:40:54 Past Encounters Encounter ID Performer Location Encounter Start Date Encounter Closed Date Diagnosis/Indication Diagnosis SNOMED-CT Code Diagnosis ICD10 Code Diagnosis Note [id number] Antoinette Carvajal, [facility] [address] [place] [address] 02/13/2016 11:21:05 02/13/2016 12:46:22 Follow-up visit 878216935 Z09 Plain X-ra y of soft tissue of chest abnormal 739874939 R93.8 02/06/16 Chest ray yielded pneumonia and possible pulmonary nodules Pneumonia 999507214 J18. 9 Treated with Z hossein on 02/06/16 [id number] Jeffery Cyr MD [place] [facility], [facility] [address] [place] [address] 09/13/2016 10:13:52 09/13/2016 11:20:49 Near syncope 068909207 R55 with palpitatio n on and off Fatigue 50960945 R53.83 Hyperlipidemia 21321054 E78.5 Long-term current use of steroid 772395150 Z79.52 Gastroesop hageal reflux disease without esophagitis 073056825 K21.9 Vitamin D deficiency 347 83590 E55.9 [id number] Jeffery Cyr MD [place] [facility], [facility] [address] [place] [address] 12/14/2016 10:00:00 12/14/2016 10:53:10 Pharyngitis 085915294 J02.9 Testostero ne level below reference range 739744513 R79.89 On examina tion - dysphonia 549049157 R49.0 Ankylosing spondylitis 8246056 M45.9 sees rheumatolo gy Active or passive immunization 630647052 Z23 [id number] JOSIE ELMORE APN [place] [facility], [facility] [address] [place] [address] 01/22/2017 12:32:43 01/22/2017 13:35:42 Cough 38994588 R05 increase prednisone to 1.5 tabs x 5 days then resume back to 5mg dailyconti nue mucinex DM twice daily Chronic back pain 263998 002 G89.29 prednisone 5mg dailyconce ntrex scheduled following this illness Gastroesop hageal reflux disease 495504300 K21.0 Hyperlipidemia 71904942 E78.[address] Cardoza 12/2016LDL 118Tri 182 Pleuritic pain 0315105 R 07.81 right sidedsore with coughing although during stretching on roller felt a pop on right side Wheezing 09751719 R06.2 O2 97% [id number] Jeffery Cyr MD [place] [facility], [facility] [address] [place] [address] 03/07/2017 10:40:51 03/07/2017 11:46:34 Sprain of ankle 17335849 S93.401A ice , elevation , X ray Asthma 807282096 J45.90 9 Low back pain 521580558 M54.5 Vitamin D deficiency 347 44818 E55.9 Hyperlipidemia 10544255 E78.5 On examina tion - dysphonia 544391106 R49.0 Screening procedure 2012 5006 Z13.9 [id number] Jeffery Cyr MD [place] [facility], [facility] [address] [place] [address] 06/05/2017 12:09:45 06/05/2017 13:15:44 Asthma 591074437 J45.909 Ankylosing spondylitis 4788979 M45.9 sees rheumatolo gy Vitamin D deficiency 347 53372 E55.9 Gastroesop hageal reflux disease without esophagitis 468729788 K21.9 Primary er ectile dysfunction 636297525 N52.9 Cramp in lower limb 4499 27491 R25.2 Health Concerns Section Related Observation LastModified by Organization Detai ls LastModified Time None Recorded Concern Status LastModified by Organization Details LastModified Time None Recorded Advance Directives Directive None Recorded Payers Insurance Date Sequence Insurance Name Policy Number Policy Franks Covered Member ID Franks Member ID Guarantor Name 09/02/2017 1 [place] MYNOR Bricerinku Valente [id number] Bricerinku Valente Notes Date Note Type Note Provider Name and Address Organization Details Recorded Time 09/13/2016 text/html Hypertension F/UReported bypatient.Medications: taking medications as directed; no side effects from medication Lifestyle:regular exercise; limiting/avoiding salt; compliant with low salt diet Associated Symptoms:no dizziness; no lightheadedness; no chest pain; no shortness of breath; no palpitations; no edema; no calf pain with exertion; no headache had palpitation on and off , with feeling that is going to faint one time Jeffery Cry MD [address], [place], [address], [facility] 09/13/2016 11:18:34 12/14/2016 text/html Hypertension F/UReported bypatient.Medications: taking medications as directed; no side effects from medication Lifestyle:regular exercise; limiting/avoiding salt; compliant with low salt diet Associated Symptoms:no dizziness; no lightheadedness; no chest pain; no shortness of breath; no palpitations; no edema; no calf pain with exertion; no headache ST, voice change , 2 weeks Jeffery Cyr MD [address], [place], [address], [facility] 12/14/2016 10:50:18 01/22/2017 text/html cold x 2 weekswh eezing at night occasionallycough -- non productivedenies fever, chills, or sweats JOSIE ELMORE APN [address], [place], [address], [facility] 01/22/2017 13:38:06 03/07/2017 text/html Hypertension F/UReported bypatient.Medications: taking medications as directed; no side effects from medication Lifestyle:regular exercise; limiting/avoiding salt; compliant with low salt diet Associated Symptoms:no dizziness; no lightheadedness; no chest pain; no shortness of breath; no palpitations; no edema; no calf pain with exertion; no headache twist Rt ankle yesterday Jeffery Cyr MD [address] [facility] [address], [place], [address], [facility] 03/07/2017 11:42:33 06/05/2017 text/html Hypertension F/UReported bypatient.Medications: taking medications as directed; no side effects from medication Lifestyle:regular exercise; limiting/avoiding salt; compliant with low salt diet Associated Symptoms:no dizziness; no lightheadedness; no chest pain; no shortness of breath; no palpitations; no edema; no calf pain with exertion; no headache seen pod , walking bootleg cramps on and off Jeffery Cyr MD [address], [place], [address], [facility] 06/05/2017 12:51:57
[2024-09-21 18:07] VITALS: BP 128/89; PULSE 96; RESP 18; TEMP 36.7; O2SAT 98
[2024-09-21 18:08] LABS: Hematocrit 45.3 % (42.0-52.0); Hemoglobin 15.6 g/dL (14.0-18.0); Immature Granulocyte Percent A 0.3 % (0-0.5); Lymphocytes Absolute Auto 2.59 K/mm3 (0.9-3.2); Mean Corpuscular HGB Conc 34.4 g/dl (32-36); Mean Corpuscular Hemoglobin 29.4 pg (26-34); Mean Corpuscular Volume 85.5 fl (80-100); Nucleated Red Blood Cells Absolute Auto 0.000 K/mm3 (0.0-0.012); Nucleated Red Blood Cells Perc 0.0 % (0.0-0.2); Platelet Count Result 272 k/mm3 (150-375); Red Blood Count 5.30 M/mm3 (4.6-6.20); White Blood Count 9.4 K/mm3 (4.5-10.0)
[2024-09-21 18:22] LABS: INR 1.0; Prothrombin Time 13.6 Seconds (11.1-14.7)
[2024-09-21 18:23] LABS: Partial Thromboplastin Time 21.8 Seconds (22.3-36.8)
[2024-09-21 18:31] LABS: Alanine Aminotransferase 50 U/L (6-50); Albumin Level 4.5 g/dL (3.5-5.1); Alkaline Phosphatase 43 U/L (38-126); Anion Gap 10 mmol/L (4-12); Aspartate Amino Transferase 32 U/L (17-59); Bilirubin,Total 0.4 mg/dL (0.2-1.3); Blood Urea Nitrogen 23 mg/dL (9-20); Calcium 9.5 mg/dL (8.4-10.2); Carbon Dioxide 24 mmol/L (22-30); Chloride 100 mmol/L (98-107); Estimated CRCL calculation 89 ml/min; Estimated Glomerular Filt Rate > 60; Glucose 109 mg/dL (65-110); Lipase 197 U/L (23-300); Potassium 4.0 mmol/L (3.4-5.0); Sodium 134 mmol/L (137-145); Total Protein 7.3 g/dL (6.3-8.2)
[2024-09-21 18:42] LABS: Troponin I < 0.012 ng/mL (0.000-0.034)
[2024-09-21] MEDS: ASPIRIN 81 MG CHEWABLE TABLET 324 MG PO (19:47)
--- OUTSIDE RECORDS SUMMARY | 2024-09-21 19:53 | XMS_ITS | Referral Summary ---
Author Organization [facility] Address [address] [place] [address] Care Team Providers Care Veterinary Pathologist Name Role Phone Jeffery Cyr MD Primary Care Provider [phone] Allergies Active Allergy Reactions Criticality Noted Date Comments Codeine Nausea Only Medications cholecalciferol (VITAMIN D-3) 5,000 unit tablet daily. 12/27/2011 Active predniSONE (DELTASONE) 5 mg tablet Active dexlansoprazole (DEXILANT) 60 mg capsule daily. Active secukinumab (COSENTYX) 150 mg/mL syringe Active uvrdx-8-ypl-epa- dpa-fish oil 1,050-1,200 mg capsule daily. 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
--- OUTSIDE RECORDS SUMMARY | 2024-09-21 19:53 | XMS_ITS | Clinical Summary ---
Author Organization [facility] Address [address] [place] [address] Care Team Providers Care Outsole Scheduler Name Role Phone Unavailable Primary Care Provider [...]
--- OUTSIDE RECORDS SUMMARY | 2024-09-21 19:53 | XMS_ITS | Clinical Summary ---
Author Organization [facility] Address [address] [place] [address] Care Team Providers Care Cloth Finisher Name Role Phone Jeffery Cyr MD Primary Care Provider [phone] Allergies Active Allergy Reactions Criticality Noted Date Comments Codeine Nausea Only Medications cholecalciferol (VITAMIN D-3) 5,000 unit tablet daily. 12/27/2011 Active predniSONE (DELTASONE) 5 mg tablet Active dexlansoprazole (DEXILANT) 60 mg capsule daily. Active secukinumab (COSENTYX) 150 mg/mL syringe Active ertcq-2-trh-epa- dpa-fish oil 1,050-1,200 mg capsule daily. 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
--- OUTSIDE RECORDS SUMMARY | 2024-09-21 19:53 | XMS_ITS | Clinical Summary ---
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 BLUE ACCESS/TRUE BLUE PPO Care Teams Helicopter Officer Relationship Specialty Start Date End Date Tobias Lemon MD PCP - General 05/01/12
--- OUTSIDE RECORDS SUMMARY | 2024-09-21 19:53 | XMS_ITS | Clinical Summary ---
Author Organization [facility] Address [address] [place] [address] Care Team Providers Care Breaker Layer Name Role Phone Jeffery Cyr MD Primary Care Provider [phone] [facility],non-owned Affiliates and Associated Physician Practices is amultiple site organization consisting of ambulatory clinics and hospital sitesin [place], [place], [place] and [place]. This disclosure is being madepursuant to the Care Everywhere program and may not contain all information available regarding this patient. 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
--- NOTE | 2024-09-21 20:09 | ED.CHESTPAIN ---
HPI - Chest Pain General Chief Complaint: Chest Pain Stated Complaint: chest pain Time Seen by Provider: 09/21/24 19:21 History of Present Illness HPI narrative: 54-year-old male with a history of hyperlipidemia presenting to the emergency department for persistent cough as well as some chest discomfort retrosternally. He states that he was prescribed a combination medications by his PCP about a week ago including prednisone, albuterol inhaler, Tessalon Perles. He was diagnosed with bronchitis at that time. He states he has been having nonproductive cough for about 2-3 weeks now. Endorses having some retrosternal chest discomfort especially with deep breathing and with cough. States that is intermittent in nature and sometimes associated with a cough. No cardiac disease history to his knowledge. No DVT history. No leg swelling or calf cramping sensations. No fever, chills. Denies any back pain, jaw pain, pain radiating from the sternum. No productive cough, nausea, vomiting, abdominal pain. Was otherwise in his normal state of health. Denies any trauma or injury. Related Data Allergies Allergy/AdvReac Type Severity Reaction Status Date / Time amoxicillin Allergy Mild Rash Verified 09/01/24 09:06 codeine Allergy Unknown Itching Verified 09/01/24 09:06 Review of Systems Review of Systems: As reviewed above in HPI PMFSH Past Medical History Medical History Cough Chronic throat pain Hypercholesterolemia Hypertension Surgical History Surgical History History of ankle surgery Family History Family History Mother Heart disease Alcoholism Father Hypertension Social History Social History Smoking status: Never smoker Alcohol intake: current Alcohol use details: No alcohol use in weeks Substance use: never Substance use type: does not use Occupation/Education: occupation Exam Narrative: GENERAL: [Well-appearing, well-nourished, and in no acute distress.] HEAD: [Normocephalic, atraumatic.] EYES: [PERRLA and EOMI.] ENT: Nares clear, no rhinorrhea or epistaxis. Mucous membranes moist. NECK: Supple. CHEST: [Clear to auscultation. No respiratory distress.] HEART: [Regular rate and rhythm]. No murmur heard. [Normal peripheral pulses.] ABDOMEN: [Soft, nondistended], [nontender], [No rigidity or guarding] EXTREMITIES: Normal range of motion. [No edema.] SKIN: Warm, dry, no rash. NEURO: [No focal deficits]. Alert and oriented [x3.] PSYCH: [Normal mood and affect.] Course Vital Signs Vital signs: Vital Signs Temperature 36.7 C 09/21/24 18:07 Pulse Rate 96 09/21/24 18:07 Respiratory Rate 18 09/21/24 18:07 Blood Pressure 128/89 09/21/24 18:07 Pulse Oximetry 98 09/21/24 18:07 Temperature 36.7 C 09/21/24 18:07 Pulse Rate 96 09/21/24 18:07 Respiratory Rate 18 09/21/24 18:07 Blood Pressure 128/89 09/21/24 18:07 Pulse Oximetry 98 09/21/24 18:07 Oxygen Delivery Room Air 09/21/24 19:15 MDM - Chest Pain MDM Narrative Medical decision making narrative: 54-year-old male with a history of hyperlipidemia presenting to the emergency department for persistent cough as well as some chest discomfort retrosternally. He states that he was prescribed a combination medications by his PCP about a week ago including prednisone, albuterol inhaler, Tessalon Perles. He was diagnosed with bronchitis at that time. He states he has been having nonproductive cough for about 2-3 weeks now. Endorses having some retrosternal chest discomfort especially with deep breathing and with cough. States that is intermittent in nature and sometimes associated with a cough. No cardiac disease history to his knowledge. No DVT history. No leg swelling or calf cramping sensations. No fever, chills. Denies any back pain, jaw pain, pain radiating from the sternum. No productive cough, nausea, vomiting, abdominal pain. Was otherwise in his normal state of health. Denies any trauma or injury. Patient is overall very well-appearing not any acute distress, resting comfortably in the bed with normal vital signs. No tachycardia, fever, hypoxia blood pressure anomalies. He has an unremarkable examination with strong symmetric pulses in all 4 limbs, warm extremities, no reproducible chest pain with palpation, clear breath sounds throughout. No respiratory distress or tachypnea. Given patient's recent diagnosis of bronchitis and some mild persisting cough and now some chest discomfort likely has musculoskeletal pain from the cough, pleurisy, recurrent bronchitis, pneumonia, pneumothorax. Unlikely ACS B does have elevated risk factors including age and hyperlipidemia. Cardiac workup was ordered including serial troponins, EKG, chest x-ray, CBC, CMP. He was given aspirin. Placed on monitor car operator and pulse oximetry. Patient does cough occasionally throughout the exam and states that it is dry and does not always get relief from some Tessalon Perles. Patient's workup was all reassuring with no leukocytosis or anemia. Initial troponin is negative, delta troponin is negative, chest x-ray without any signs of pneumonia or pleural effusions, no pneumothorax. EKG is nonischemic. Electrolytes unremarkable. Normal kidney and renal function. Normal hepatic function panel. Hemodynamically stable and aside from the cough is asymptomatic during my evaluation. Patient felt comfortable going home at this time with unremarkable workup and will follow up with his primary care provider. Requesting additional cough suppressing medications which were provided. He was also given Toradol for his musculoskeletal chest pain. Medical Records Data Attestation: I reviewed the patient's medical records. Lab Data Attestation: I reviewed the patient's lab results. 09/21/24 17:50 09/21/24 17:50 Labs: Lab Results 09/21/24 09/21/24 Range/Units 17:50 20:46 WBC 9.4 (4.5-10.0) K/mm3 RBC 5.30 (4.6-6.20) M/mm3 Hgb 15.6 (14.0-18.0) g/dL Hct 45.3 (42.0-52.0) % MCV 85.5 (80-100) fl MCH 29.4 (26-34) pg MCHC 34.4 (32-36) g/dl RDW 12.7 (11.5-14.5) % Plt Count 272 (150-375) k/mm3 MPV 9.6 (7.4-10.4) fl Immature Gran % (Auto) 0.3 (0-0.5) % Neut % (Auto) 62.9 (45.5-73.1) % Lymph % (Auto) 27.5 (18.3-44.2) % [place] % (Auto) 7.5 (2.6-8.5) % Eos % (Auto) 1.4 (0-4.4) % Baso % (Auto) 0.4 (0.2-1.2) % Lymph # (Auto) 2.59 (0.9-3.2) K/mm3 [place] # (Auto) 0.7 H (0.1-0.6) K/mm3 Eos # (Auto) 0.1 (0-0.3) K/mm3 Baso # (Auto) 0.0 (0.0-0.1) K/mm3 Abs Immat Gran (auto) 0.03 (0.00-0.031) K/mm3 Absolute Neuts (auto) 5.9 (1.3-6.7) K/mm3 Absolute Nucleated RBC 0.000 (0.0-0.012) K/mm3 Nucleated RBC % 0.0 (0.0-0.2) % PT 13.6 (11.1-14.7) Seconds INR 1.0 APTT 21.8 L (22.3-36.8) Seconds Sodium 134 L (137-145) mmol/L Potassium 4.0 (3.4-5.0) mmol/L Chloride 100 (98-107) mmol/L Carbon Dioxide 24 (22-30) mmol/L Anion Gap 10 (4-12) mmol/L BUN 23 H D (9-20) mg/dL Creatinine 1.03 (0.7-1.3) mg/dL Estim Creat Clear Calc 89 ml/min Estimated GFR > 60 (59 - ) Glucose 109 (65-110) mg/dL Calcium 9.5 (8.4-10.2) mg/dL Total Bilirubin 0.4 (0.2-1.3) mg/dL AST 32 (17-59) U/L ALT 50 (6-50) U/L Alkaline Phosphatase 43 (38-126) U/L Troponin I < 0.012 < 0.012 (0.000-0.034) ng/mL Total Protein 7.3 (6.3-8.2) g/dL Albumin 4.5 (3.5-5.1) g/dL Lipase 197 (23-300) U/L Imaging Data Attestation: I personally reviewed and interpreted this imaging study as follows: My impression: Impressions Chest X-Ray 09/21/24 18:03 IMPRESSION: No acute cardiopulmonary process. Discharge Plan Discharge Clinical Impression: Chest pain, pleuritic, Atypical chest pain Patient Disposition: Home Condition: Stable Instructions: Antibiotic Form, Pleurisy (ED), Costochondritis (ED), Chest Wall Pain (ED) Additional Instructions: Your cardiac workup appears very reassuring. No signs of any cardiac damage or pneumonia. Your symptoms from recent viral syndrome and acute cough may last up to 4 weeks. Symptoms do sound pleuritic in nature and could be pleural irritation causing the chest discomfort and coughing. We will send you home with strong anti-inflammatory medications and additional cough suppressant medications as the Kaci Perles do not seem to be working very well. Follow-up with your primary care provider and return with any emergent concerns. Patient Language: B[place] Prescriptions: New ketorolac 10 mg tablet 10 mg PO Q8H PRN (Reason: pain) 5 Days Qty: 20 0RF Rx Instructions: maximum total duration of 5 days from all oral, intranasal, or parenteral formulations guaifenesin [Mucinex] 1,200 mg tablet extended release 12hr 1,200 mg PO Q12H Qty: 20 0RF No Action triamcinolone acetonide 0.1 % cream 1 applic topical BID Qty: 15 0RF albuterol sulfate [Ventolin HFA] 90 mcg/actuation HFA aerosol inhaler 1 puff inhalation Q4H PRN (Reason: shortness of breath or wheezing) Qty: 8.5 0RF Follow-up/Referrals: Chari Calabrese MD [Primary Care Provider] - Time of Disposition: 21:53
--- NOTE | 2024-09-21 20:41 | ECG_ITS ---
Test Date: 2024-09-21 20:43:52 Measurements Intervals [place] Rate: 60 P: 60 MO: 221 QRS: 7 QRSD: 90 T: 21 QT: 398 QTc: 398 Interpretive Statements SINUS RHYTHM WITH FIRST DEGREE AV BLOCK Compared to ECG 09/21/2024 17:42:01 No significant changes Electronically Signed On 09-22-2024 16:38:17 CDT by Tressa Woo M.D.
[2024-09-21 21:36] LABS: Troponin I < 0.012 ng/mL (0.000-0.034)
[2024-09-21 22:20] VITALS: BP 147/83; PULSE 68; RESP 14; O2SAT 99
== END 2024-09-21 22:21 | disposition home or self-care (01) ==
PROVIDERS: Emergency Medicine; Emergency Provider Student in an Organized Health Care Education/Training Program; PCP Family Medicine
DX: R07.89 Other chest pain (principal); E78.5 Hyperlipidemia, unspecified; I10 Essential (primary) hypertension; I44.0 Atrioventricular block, first degree
CPT/HCPCS: 36415; 71046; 80053; 83690; 84484; 85025; 85610; 85730; 93005; 99284; A9270

== ENCOUNTER 2024-09-26 12:35 | Outpatient (CLI) | payer OTHER, SELFPAY ==
--- NOTE | ~2024-09-26 | XR_ITS ---
XR sacroiliac joints min 3V 09/26/2024 13:36 Indication: Ankylosing spondylitis Procedure: 3 view sacroiliac joints. Comparison: 08/20/2018 Findings: No fracture or traumatic malalignment. No evidence for sclerosis or ankylosis of the sacroi liac joints. No erosive changes. Sacral foramen are symmetric. Impression: 1: No significant abnormality of the sacroiliac joints. Reviewed, dictated and finalized at location B. Impression: 1: No significant abnormality of the sacroiliac joints.
--- NOTE | ~2024-09-26 | XR_ITS ---
XR_CERV2-3V_CR 09/26/2024 13:36 Indication: Ankylosing spondylitis. Procedure: 3 view cervical spine Comparison: 08/20/2018 Findings: There is disc narrowing and endplate hypertrophy at C4-5 and C5-6 which has progressed sinc e prior study. No prevertebral soft tissue swelling. No acute fracture or traumatic malalignment. The re is mild uncinate degenerative change at C4-5, C5-6 and C6-7. Lung apices are normal. Impression: 1: Mild-moderate cervical spondylosis. Reviewed, dictated and finalized at location B. Impression: 1: Mild-moderate cervical spondylosis.
--- NOTE | ~2024-09-26 | XR_ITS ---
XR hand RT min 3V 09/26/2024 13:36 Indication: Ankylosing spondylitis Procedure: 3 views right hand Comparison: 11/03/2016 Findings: There is anatomic alignment. Normal mineralization. No erosive changes. No fracture or trau matic malalignment. No soft tissue abnormality. No foreign bodies. Impression: 1: No significant abnormality of the right hand. Reviewed, dictated and finalized at location B. Impression: 1: No significant abnormality of the right hand.
--- NOTE | ~2024-09-26 | XR_ITS ---
XR hand LT min 3V 09/26/2024 13:36 Indication: Ankylosing spondylitis Procedure: 3 views left hand Comparison: 11/03/2016 Findings: No fracture, subluxation or dislocation. No erosive changes. No soft tissue abnormality. No foreign bodies. Impression: 1: No acute abnormality of the left hand. Reviewed, dictated and finalized at location B. Impression: 1: No acute abnormality of the left hand.
--- NOTE | ~2024-09-26 | XR_ITS ---
XR hip LT min 2V 09/26/2024 13:36 INDICATION: Left hip pain PROCEDURE: 2 views left hip COMPARISON: No prior studies for comparison. FINDINGS: Fracture, dislocation or subluxation is not identified. The soft tissues appear within norm al limits. No foreign bodies are identified. IMPRESSION: 1: NO ACUTE BONE OR JOINT ABNORMALITY IDENTIFIED. Reviewed, dictated and finalized at location B.
--- NOTE | ~2024-09-26 | XR_ITS ---
XR thoracic spine 2V 09/26/2024 13:36 Indication: Ankylosing spondylitis Procedure: 3 views thoracic spine Comparison: No prior studies for comparison. Findings: Normal thoracic kyphosis. Vertebral body heights are maintained. No paraspinal soft tissue abnormality. No significant ankylosis. Surrounding osseous structures within normal limits. Impression: 1: No significant abnormality of the thoracic spine. Reviewed, dictated and finalized at location B. Impression: 1: No significant abnormality of the thoracic spine.
--- NOTE | ~2024-09-26 | XR_ITS ---
XR hip RT min 2V 09/26/2024 13:36 Indication: Ankylosing spondylitis Procedure: 2 views right hip Comparison: No prior studies for comparison. Findings: No fracture, subluxation or dislocation. No erosive changes. There is anatomic alignment. Impression: 1: No significant abnormality of the right hip. Reviewed, dictated and finalized at location B. Impression: 1: No significant abnormality of the right hip.
--- NOTE | ~2024-09-26 | XR_ITS ---
XR lumbar spine 2-3V 09/26/2024 13:36 Indication: Ankylosing spondylitis Procedure: 3 views lumbar spine Comparison: No prior studies for comparison. Findings: Vertebral body heights are maintained. No significant disc narrowing. No evidence for fract ure, subluxation or dislocation. Pedicles intact. Impression: 1: No significant abnormality of the lumbar spine. Reviewed, dictated and finalized at location B. Impression: 1: No significant abnormality of the lumbar spine.
--- OUTSIDE RECORDS SUMMARY | 2024-09-26 12:42 | XMS_ITS | Data Portability ---
Author Organization [facility], autoECommer Address [address] [facility] [address] [place] [address] Care Team Providers Care Head Neck Surgeon Name Role Phone REUBEN, MOJESSICACECILIA Primary Care Provider [phone] Assessment Encounter Date Assessment Date Assessment LastModified by Organization Details LastModified Time 09/13/2016 09/13/2016 Patient presented for follow up. Studies ordered as below. Discussed plan with patient/caregiv er, who expressed understanding. Follow up as noted below. [email or web address] Not available 09/13/2016 10:18:03 12/14/2016 12/14/2016 Patient presented for follow up. Studies ordered as below. Discussed plan with patient/caregiv er, who expressed understanding. Follow up as noted below. [email or web address] Not available 12/14/2016 10:05:34 01/22/2017 01/22/2017 Cough [...] instructions on contacting us if symptoms worsen. [email or web address] Not available 01/22/2017 12:51:47 03/07/2017 03/07/2017 Patient presented for follow up. Studies ordered as below. Discussed plan with patient/caregiv er, who expressed understanding. Follow up as noted below. [email or web address] Not available 03/07/2017 10:47:49 06/05/2017 06/05/2017 Patient presented for follow up. Studies ordered as below. Discussed plan with patient/caregiv er, who expressed understanding. Follow up as noted below. [email or web address] Not available 06/05/2017 12:22:02 Plan of Treatment Reminders Order Date Submit Date Provider Last Modified By Organization Details Last Modified Time Details Appointments None recorded. Lab CBC w/ auto diff 2017 018 [email or web address], [address], [address], [place], [address], 8 08:38:33 CMP, serum or plasma 2017 018 [email or web address], [address], [address], [place], [address], 8 08:38:34 TSH, serum or plasma 2017 018 [email or web address], [address], [address], [place], [address], 8 08:38:34 magnesium, serum or plasma 2017 018 [email or web address], [address], [address], [place], [address], 8 08:38:34 iron + TIBC + ferritin, serum 2017 018 [email or web address], [address], [address], [place], [address], 8 08:38:34 vitamin D, 25-hydroxy , total, serum 2017 018 [email or web address], [address], [address], [place], [address], 8 08:38:33 CBC w/ auto diff 2017 018 [email or web address] [facility], [address], [address], [place], [address], 8 08:49:40 CMP, serum or plasma 2017 018 [facility], [address], [address], [place], [address], 8 08:49:40 CBC w/ auto diff 2016 017 [facility], [address], [address], [place], [address], 7 09:03:04 testostero ne, free + total, serum 2016 017 [email or web address], [address], [address], [place], [address], 7 08:32:51 vitamin D, 25-hydroxy , total, serum 2016 017 [facility], [address], [address], [place], [address], 7 02:59:37 H pylori urea breath test, co2 infrared 2016 017 [facility], [address], [address], [place], [address], 7 02:59:36 magnesium, serum or plasma 2016 017 [facility], [address], [address], [place], [address], 7 02:59:34 lipid panel w/ direct LDL, serum 2016 017 [facility], [address], [address], [place], [address], 7 02:59:34 CMP, serum or plasma 2016 017 [facility], [address], [address], [place], [address], 7 02:59:35 TSH, serum or plasma 2016 017 [facility] [employer] [facility], [address], [address], [place], [address], 7 02:59:37 CBC w/ auto diff 2016 017 [facility], [address], [address], [place], [address], 7 02:59:36 vitamin B12 + folate, serum or blood 2016 017 [facility] [facility], [address], [address], [place], [address], 7 02:59:37 testostero ne, free + total, serum 2016 017 [facility], [address], [address], [place], [address], 7 02:59:38 erythrocyt e sedimentat ion rate by westergren method 2016 017 [facility], [address], [address], [place], [address], 7 02:59:35 Referral physical therapist referral 2017 Birdie ospina [facility], [address], [address], [place], [address], 8 09:57:08 ENT referral 2017 Birdie Vasquez MD, [address] [place], [address], 8 09:57:09 optometris t referral 2017 Birdie [email or web address] [facility], [address] , [place], [address], 8 09:57:[address] referral 2016 017 [email or web address] Clark Danielson MD, [address], [place], [address], 7 09:14:55 Procedures None recorded. Surgeries None recorded. Imaging XR, ankle, 3 or more view 2017 018 [email or web address] Not available 8 09:08:50 XR, ribs, bilateral 2016 017 [facility], [address], [address], [place], [address], 7 13:58:33 XR, chest, 2 view 2016 017 [facility], [address], [address], [place], [address], 7 17:21:54 XR, chest, 2 view 2016 017 [facility], [address], [address], [place], [address], 7 15:00:11 bone density 2016 017 [facility] [employer] [facility], [facility], [address], [place], [address], 7 11:30:59 electrocar diogram 2016 017 [facility] [employer] [facility], [facility], [address], [place], [address], 7 12:30:04 US, echocardio gram 2016 017 [facility] [employer] [facility], [facility], [address], [place], [address], 7 12:23:30 Medication Orders Cialis 10 mg tablet 2017 018 [facility]acy [facility]2510, [address] [place], [address], 8 12:47:09 ProAir HFA 90 mcg/actuat ion aerosol inhaler 2017 018 [facility]2510, [address] [place], [address], 8 11:40:05 Celebrex 200 mg capsule 2017 018 [facility]acy [facility]2510, [address] [place], [address], 8 11:40:06 baclofen 10 mg tablet 2017 018 [facility]acy [facility]2510, [address] [place], [address], 8 11:40:05 ProAir HFA 90 mcg/actuat ion aerosol inhaler 2016 017 [facility]/Pharmacy #2510, [address] [place], [address], 7 13:22:37 Spiriva Respimat 1.25 mcg/actuat ion solution for inhalation 2016 017 [facility]/Pharmacy #2510, [address] [place], [address], 8 11:33:47 baclofen 10 mg tablet 2016 017 [facility]armacy #2510, [address] [place], [address], 7 13:22:36 azithromyc in 250 mg tablet 2016 017 [facility]/Pharmacy #2510, [address] [place], [address], 8 11:29:11 Levaquin 500 mg tablet 2016 017 [facility]armacy #2510, [address] [place], [address], 7 12:55:43 Medrol (Hossein) 4 mg tablets in a dose pack 2016 017 [email or web address] [facility]/Pharmacy #2510, [address] [place], [address], 7 12:55:49 Patient TargetsNo targets recorded. Patient Instructions Encounter Date Encounter Id Patient Instructions Last Modified By Organization Details Last Modified Time 09/13/2016 [id number] lightheadedness or faintness: care instructions GRACIE Not available 09/15/2016 15:15:37 high cholesterol : care instructions GRACIE Not available 09/15/2016 15:15:53 12/14/2016 [id number] ankylosing spondylitis: care instructions GRACIE Not available 12/14/2016 12:38:51 ankylosing spondylitis: exercises GRACIE Not available 12/14/2016 12:38:51 01/22/2017 [id number] pulmonary functi on test* Not available 01/22/2017 13:22:34 03/07/2017 [id number] controlling your asthma: care instructions [email or web address] Not available 03/07/2017 11:40:03 learning about asthma [email or web address] Not available 03/07/2017 11:40:03 ankle sprain: ca re instructions [email or web address] Not available 03/07/2017 11:40:03 high cholesterol : care instructions mshenouda Not available 03/07/2017 11:40:03 06/05/2017 [id number] controlling your asthma: care instructions [email or web address] Not available 06/05/2017 12:47:07 learning about asthma mshenouda Not available 06/05/2017 12:47:07 (GEORGETTE) ankle brachial index* GRACIE Not available 06/06/2017 12:28:39 ankylosing spondylitis: care instructions [email or web address] Not available 06/05/2017 12:47:07 ankylosing spondylitis: exercises [email or web address] Not available 06/05/2017 12:47:07 Reason for Referral [employer] Technician Referral for Ne ar syncope Referring Physician: Jeffery Cyr, Internal Medicine, Encounter Date: 09/13/2016 Referring Physician: Jeffery Cyr, Internal Medicine, Encounter Date: 03/07/2017 ENT Referral for On examinat ion - dysphonia Referring Physician: Jeffery Cyr, Internal Medicine, Encounter Date: 03/07/2017 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 Referring Physician: Jeffery Cyr, Internal Medicine, Encounter Date: 03/07/2017 Results Created Date Observation Date Name Description Value Unit Range Abnormal Flag Note LastModifiedBy Organization Detail LastModifiedTime 01/23/20 17 01/22/2017 pulmo nary funct ion test* pre fev1 Not Available [facility] [address], [place], [address], 01/22/2017 13:18:38 01/23/20 17 01/22/2017 pulmo nary funct ion test* post fev1 Not Available [facility] [address], [place], [address], 01/22/2017 13:18:38 01/23/20 17 01/22/2017 pulmo nary funct ion test* fev1 Not Available [employer] [facility], [facility] [address], [place], [address], 01/22/2017 13:18:38 01/23/20 17 01/22/2017 pulmo nary funct ion test* pre fef Not Available [facility] [address], [place], [address], 01/22/2017 13:18:38 01/23/20 17 01/22/2017 pulmo nary funct ion test* post fef Not Available [facility] [address], [place], [address], 01/22/2017 13:18:38 01/23/20 17 01/22/2017 pulmo nary funct ion test* fe Not Available [facility], [facility] [address], [place], [address], 01/22/2017 13:18:38 09/16/19 17 09/19/2016 lipid panel , serum cholesterol, total 171 mg/dL 125-20 0 normal Not Available [address], [address], 09/19/2016 02:59:34 09/16/19 17 09/19/2016 lipid panel , serum HDL cholesterol 40 mg/dL > or = 40 normal Not Available [address] [place], [address], 09/19/2016 02:59:34 09/16/19 17 09/19/2016 lipid panel , serum triglyceride s 108 mg/dL <150 normal Not Available [address] [place], [address], 09/19/2016 02:59:34 09/16/1909/19/2016 lipid panel , serum LDL-choleste rol 109 mg/dL _(jayesh c) <130 normal Sara able range <100 mg/dL for patie nts with CHD or diabe regis and <70 mg/dL for diabe tic patie nts with known heart disea se. Not Available [address], [address], 09/19/2016 02:59:34 09/16/19 17 09/19/2016 lipid panel , serum chol/HDLC ratio 4.3 (calc ) < or = 5.0 normal Not Available [facility] [address], [address], 09/19/2016 02:59:34 09/16/19 17 09/19/2016 lipid panel , serum non HDL cholesterol 131 mg/dL _(jayesh c) normal Targe t for non-H DL andreina stero l is 30 mg/dL highe r than LDL andreina stero l targe t. Not Available [address], [address], 09/19/2016 02:59:34 09/16/1909/19/2016 magne sium, serum or plasm a magnesium 2.2 mg/dL 1.5-2. 5 normal Not Available [address], [address], 09/19/2016 02:59:34 09/16/1909/19/2016 CMP, serum or plasm a glucose 81 mg/dL 65-99 normal Fasti ng refer ence inter tessa Not Available [address], [address], 09/19/2016 02:59:35 09/16/1909/19/2016 CMP, serum or plasm a urea nitrogen (BUN) 15 mg/dL 7-25 normal Not Available [address], [address], 09/19/2016 02:59:35 09/16/1909/19/2016 CMP, serum or plasm a creatinine 1.18 mg/dL 0.60-1 .35 normal Not Available [address], [address], 09/19/2016 02:59:35 09/16/1909/19/2016 CMP, serum or plasm a eGFR non-afr. [place] citizen 75 mL/mi n/1.7 3m2 > or = 60 normal Not Available [address], [address], 09/19/2016 02:59:35 09/16/1909/19/2016 CMP, serum or plasm a eGFR 86 mL/mi n/1.7 3m2 > or = 60 normal Not Available [address], [address], 09/19/2016 02:59:35 09/16/19 17 09/19/2016 CMP, serum or plasm a BUN/creatini ne ratio NOT APPLIC ABLE (calc ) 6-22 Not Available [address], [address], 09/19/2016 02:59:35 09/16/19 17 09/19/2016 CMP, serum or plasm a sodium 139 mmol/ L 135-14 6 normal Not Available [address], [address], 09/19/2016 02:59:35 09/16/1909/19/2016 CMP, serum or plasm a potassium 4.5 mmol/ L 3.5-5. 3 normal Not Available [address], [address], 09/19/2016 02:59:35 09/16/1909/19/2016 CMP, serum or plasm a chloride 104 mmol/ L 98-110 normal Not Available [address], [address], 09/19/2016 02:59:35 09/16/1909/19/2016 CMP, serum or plasm a carbon dioxide 27 mmol/ L 20-31 normal Not Available [address], [address], 09/19/2016 02:59:35 09/16/1909/19/2016 CMP, serum or plasm a calcium 9.5 mg/dL 8.6-10 .3 normal Not Available [facility] [address], [address], 09/19/2016 02:59:35 09/16/1909/19/2016 CMP, serum or plasm a protein, total 6.9 g/dL 6.1-8. 1 normal Not Available [facility] [address], [address], 09/19/2016 02:59:35 09/16/19 17 09/19/2016 CMP, serum or plasm a albumin 4.7 g/dL 3.6-5. 1 normal Not Available [address], [address], 09/19/2016 02:59:35 09/16/19 17 09/19/2016 CMP, serum or plasm a globulin 2.2 g/dL_ (calc ) 1.9-3. 7 normal Not Available [address], [address], 09/19/2016 02:59:35 09/16/19 17 09/19/2016 CMP, serum or plasm a albumin/glob ulin ratio 2.1 (calc ) 1.0-2. 5 normal Not Available [address], [address], 09/19/2016 02:59:35 09/16/19 17 09/19/2016 CMP, serum or plasm a bilirubin, total 1.4 mg/dL 0.2-1. 2 high Not Available [address], [address], 09/19/2016 02:59:35 09/16/19 17 09/19/2016 CMP, serum or plasm a alkaline phosphatase 50 U/L 40-115 normal Not Available [facility] [employer] [address], [address], 09/19/2016 02:59:35 09/16/1909/19/2016 CMP, serum or plasm a AST 17 U/L 10-40 normal Not Available [address], [address], 09/19/2016 02:59:35 09/16/1909/19/2016 CMP, serum or plasm a ALT 20 U/L 9-46 normal Not Available [address], [address], 09/19/2016 02:59:35 09/16/19 17 09/19/2016 eryth rocyt e sedim entat ion rate by vernon sellers metho d sed rate by modified dale 2 mm/h < or = 15 normal Not Available [address], [address], 09/19/2016 02:59:35 09/16/1909/19/2016 CBC w/ auto diff white blood cell count 4.2 thous and/u L 3.8-10 .8 normal Not Available [address], [address], 09/19/2016 02:59:36 09/16/1909/19/2016 CBC w/ auto diff red blood cell count 5.24 izabella on/uL 4.20-5 .80 normal Not Available [address], [address], 09/19/2016 02:59:36 09/16/1909/19/2016 CBC w/ auto diff hemoglobin 15.8 g/dL 13.2-1 7.1 normal Not Available [address], [address], 09/19/2016 02:59:36 09/16/1909/19/2016 CBC w/ auto diff hematocrit 45.9 % 38.5-5 0.0 normal Not Available [address], [address], 09/19/2016 02:59:36 09/16/1909/19/2016 CBC w/ auto diff MCV 87.6 fL 80.0-1 00.0 normal Not Available [address], [address], 09/19/2016 02:59:36 09/16/1909/19/2016 CBC w/ auto diff MCH 30.2 pg 27.0-3 3.0 normal Not Available [address], [address], 09/19/2016 02:59:36 09/16/19 17 09/19/2016 CBC w/ auto diff MCHC 34.4 g/dL 32.0-3 6.0 normal Not Available [address], [address], 09/19/2016 02:59:36 09/16/19 17 09/19/2016 CBC w/ auto diff RDW 12.5 % 11.0-1 5.0 normal Not Available [address], [address], 09/19/2016 02:59:36 09/16/1909/19/2016 CBC w/ auto diff platelet count 253 thous and/u L 140-40 0 normal Not Available [address], [address], 09/19/2016 02:59:36 09/16/19 17 09/19/2016 CBC w/ auto diff MPV 10.3 fL 7.5-12 .5 normal Not Available [address], [address], 09/19/2016 02:59:36 09/16/1909/19/2016 CBC w/ auto diff absolute neutrophils 2020 cells /uL 1500-7 800 normal Not Available [address], [address], 09/19/2016 02:59:36 09/16/1909/19/2016 CBC w/ auto diff absolute lymphocytes 1646 cells /uL 850-39 00 normal Not Available [address], [address], 09/19/2016 02:59:36 09/16/1909/19/2016 CBC w/ auto diff absolute monocytes 433 cells /uL 200-95 0 normal Not Available [address] [place], [address], 09/19/2016 02:59:36 09/16/19 17 09/19/2016 CBC w/ auto diff absolute eosinophils 59 cells /uL 15-500 normal Not Available [place] [address] [place], [address], 09/19/2016 02:59:36 09/16/1909/19/2016 CBC w/ auto diff absolute basophils 42 cells /uL 0-200 normal Not Available [address] [address] [place], [address], 09/19/2016 02:59:36 09/16/1909/19/2016 CBC w/ auto diff neutrophils 48.1 % normal Not Available [address] [address] [place], [address], 09/19/2016 02:59:36 09/16/1909/19/2016 CBC w/ auto diff lymphocytes 39.2 % normal Not Available [address] [place], [address], 09/19/2016 02:59:36 09/16/1909/19/2016 CBC w/ auto diff monocytes 10.3 % normal Not Available [address] [address] [place], [address], 09/19/2016 02:59:36 09/16/1909/19/2016 CBC w/ auto diff eosinophils 1.4 % normal Not Available [address] [address] [place], [address], 09/19/2016 02:59:36 09/16/1909/19/2016 CBC w/ auto diff basophils 1.0 % normal Not Available [address] [address] [place], [address], 09/19/2016 02:59:36 09/16/1909/19/2016 H pylor i urea [...] disco ntinu ing treat ment. Not Available [address] [address] [place], [address], 09/19/2016 02:59:36 09/16/1909/19/2016 TSH, serum or plasm a TSH 0.95 mIU/L 0.40-4 .50 normal Not Available [facility] [address] [place], [address], 09/19/2016 02:59:36 09/16/1909/19/2016 vitam in B12 + folat e, serum or blood vitamin B12 448 pg/mL 200-11 00 normal Not Available [address] [place], [address], 09/19/2016 02:59:37 09/16/1909/19/2016 vitam in B12 + folat e, serum or blood folate, serum >24.0 NG/mL normal Refer ence Range Low: <3.4 Borde rline : 3.4-5 .4 Shena l: >5.4 Not Available [address] [place], [address], 09/19/2016 02:59:37 09/16/1909/19/2016 vitam in D, 25-hy [...] /MS is recom debra d: order code 87640 (obinna ents >2yrs ). For more infor amy dobbs on this test, go to: http: //[facility] toi griffithsia gnost ics.c om/fa q/FAQ 163 (This link is being provi ded for infor amy nal/e ducat ional purpo ses only. ) Not Available [facility] [address] [address] [place], [address], 09/19/2016 02:59:37 09/16/1909/19/2016 testo stero ne, free + total , serum testosterone , total, lc/MS/MS 378 NG/dL 250-11 00 Not Available [facility] [address] [address] [place], [address], 09/19/2016 02:59:38 09/16/1909/19/2016 testo stero ne, free + total , serum testosterone , free 47.6 pg/mL 46.0-2 24.0 Not Available [facility] [address] [address] [place], [address], 09/19/2016 02:59:38 09/16/1909/19/2016 testo stero ne, free + total , serum testosterone ,bioavailabl e 100.0 NG/dL 110.0- 575.0 low Not Available [facility] [address], [address], 09/19/2016 02:59:38 09/16/1909/19/2016 testo stero ne, free + total , serum sex hormone binding globulin 34 nmol/ L 10-50 Not Available [facility] [address], [address], 09/19/2016 02:59:38 09/16/19 17 09/19/2016 testo stero ne, free + total , serum albumin,seru m 4.6 g/dL 3.6-5. 1 Not Available [address] [address] [place], [address], 09/19/2016 02:59:38 09/28/19 17 09/28/2016 lh + FSH, serum FSH 4.3 mIU/m L 1.6-8. 0 normal Not Available [facility] [address] [address] [place], [address], 09/28/2016 07:55:42 09/28/19 17 09/28/2016 lh + FSH, serum LH 3.8 mIU/m L 1.5-9. 3 normal Not Available [address] [address] [place], [address], 09/28/2016 07:55:42 09/15/19 17 09/13/2016 elect thiago pardo am No observ ation record ed. [facility], [facility] [address] [facility] [address], [place], [address], 12/14/2016 10:32:30 09/27/19 17 09/13/2016 US, echoc ardio gram No observ ation record ed. [facility], [facility] [address] [facility] [address], [place], [address], 12/14/2016 10:32:30 12/20/19 17 12/15/2016 XR, chest , 2 view No observ ation record ed. [facility] [address], [place], [address], 12/19/2016 18:26:16 01/24/20 17 01/22/2017 pulmo nary funct ion test* No observ ation record ed. [facility], [facility] [address], [place], [address], 03/07/2017 11:28:33 01/29/20 17 01/22/2017 XR, ribs, bilat eral No observ ation record ed. [facility] [address], [place], [address], 03/07/2017 11:28:33 03/08/19 18 03/07/2017 XR, foot, 3 or more view No observ ation record ed. [facility] [address], [place], [address], 06/05/2017 12:40:55 05/16/19 18 05/15/2017 biops y lip (PROC ) No observ ation record ed. [facility] Not Available 2017 12:40:55 08/22/19 19 08/20/2018 XR, cervi jayesh spine , 4 or 5 view No observ ation record ed. [email or web address] [facility] [address], [place], [address], 08/26/2018 09:03:09 Result Notes None recorded. Problems Name Problem SNOMED Code Status Onset Date Resolution Date Notes Provider Name and Address Organization Details Recorded Time Gastroes ophageal reflux disease 182831362 Active 2015 LES Love [address], [place], [address], [facility] 6 11:46:52 Rheumato id arthriti s 45864348 Completed 201502/13/2016 LES Jorgensen [address], [place], [address], [facility] 6 12:16:37 Hyperlip idemia 49737972 Active 2015 LES Love [address], [place], [address], [facility] 6 11:56:41 Chronic back pain 007229564 Active 2015 sees rheumotol ogy on reg basis , on low dose prednison e Jeffery Cyr MD [address], [place], [address], [facility] 7 10:57:46 Family history of coronary arterios clerosis 180968933 Active 2016 Jeffery Cyr MD [address], [place], [address], [facility] 7 10:51:30 Gastroes ophageal reflux disease without esophagi tis 645594355 Active 2016 Jeffery Cyr MD [address], [place], [address], [facility] 7 10:58:04 Vitamin D deficien cy 00697830 Active 2016 Jeffery Cyr MD [address], [place], [address], [facility] 7 10:58:31 On examinat ion - dysphoni a Active 2016 sees ENT on reg basis Jeffery Cyr MD [address], [place], [address], [facility] 7 11:00:23 Ankylosi ng spondyli tis 2220099 Active 2016 Jeffery Cyr MD [address], [place], [address], [facility] 7 10:41:09 Pleuriti c pain 3784915 Completed 201601/22/2017 JOSIE ELMORE APN [address], [place], [address], [facility] 7 13:06:28 Asthma 374457147 Active 2017 Jeffery Cyr MD [address], [place], [address], [facility] 8 11:34:04 Problem Notes None recorded. Procedures Surgical History Date Name Laterality Status Provider Name and Address Organization Details Recorded Time 6 Unlisted px phrnx adnd/tnsl completed MELODIE Love- [address], [place], [address], [facility] 02/13/2016 12:19:28 Ankle arthroscopy/s urgery completed Patsy [place] [facility] 02/13/2016 11:55:48 Imaging Results None recorded. Procedure Notes None recorded. Medical Equipment None Reported. Allergies Allergen ID Allergen Name Allergen Category Reaction Reaction Severity Criticality Documentation Date Start Date Code Code System Note Provider Name and Address Organization Details Recorded Time 4680 codeine medicatio n nausea Not available Not available 02/13/2016 2670 RxNorm REMY Love [address], [place], [address], [facility] 6 11:45:31 Medications Name Sig Start Date [...] Available Not Available Not Available Flucelvax Quad 4640-5459 (PF) 60 mcg (15 mcg x 4)/0.5 mL IM syringe 01/22 completed Not Available Not Available Not Available Vitals Date Recorded Heart rate Body mass index (BMI) Body weight Provider Name and Address Organization Details Last Updated DateTime 03/07/2017 80 /min 26.7 kg/m2 75850.21 g Jeffery Cyr MD [address], [place], [address] 03/07/2017 11:28:33 Date Recorded Body height Respiratory rate Body temperature Systolic And Diastolic Provider Name and Address Organization Details Last Updated DateTime 03/07/2017 187.96 cm 18 /min 97.8 [degF] 132/80 mm[Hg] Lauryn Espinoza [facility] 8 10:49:27 Date Recorded Heart rate Provider Name an d Address Organization Details Last Updated DateTime 06/05/2017 78 /min Jeffery yCr MD [address], [place], [address] 06/05/2017 12:38:36 Date Recorded Body height Respiratory rate Body temperature Body mass index (BMI) Body weight Systolic And Diastolic Provider Name and Address Organization Details Last Updated DateTime 8 187.96 cm 16 /min 97.8 [degF] 26.7 kg/m2 30678.2 1 g 135/86 mm[Hg] Torie Hunter [facility] 8 12:22:12 Date Recorded Body height Body mass index (BMI) Body weight Respiratory rate Body temperature Heart rate Systolic And Diastolic Provider Name and Address Organization Details Last Updated DateTime 7 187.96 cm 25.7 kg/m2 41319.4 7 g 18 /min 97.2 [degF] 73 /min 111/61 mm[Hg] Lauryn Espinoza [facility] 7 10:20:37 Date Recorded Body height Body mass index (BMI) Body weight Respiratory rate Heart rate Systolic And Diastolic Provider Name and Address Organization Details Last Updated DateTime 7 187.96 cm 26.2 kg/m2 30504.8 4 g 18 /min 56 /min 137/79 mm[Hg] Lauryn Espinoza [facility] 7 10:07:49 Date Recorded Body height Body mass index (BMI) Body weight Body temperature Heart rate Systolic And Diastolic Provider Name and Address Organization Details Last Updated DateTime 7 187.96 cm 26.7 kg/m2 48651.2 1 g 96.9 [degF] 70 /min 150/81 mm[Hg] Alon Gamez [facility] 7 12:42:03 Social History Question Answer Notes LastModified by Organizat ion Details LastModified Time Tobacco Smoking Status [email or web address] 11:54:06 Which Illicit Or Recreational Drugs [...] 09/13/2016 Are you able to care for yourself independently? Yes Information not available 09/13/2016 What is your occupation? [employer] Information not available 09/13/2016 Mental Status None recorded. Family History Relationship Description Onset Age of this Age Resolved Age Notes LastModified by Organization Details LastModified Time Mother Heart disease 62 [email or web address] Not available 2016 10:51:12 Mother Arthritis Not availab le 02/13/2016 11:53:55 Father Heart disease [email or web address] Not available 2015 11:57:39 Medical History No medical history recorded. Immunizations Vaccine Type Date Status Note Provider Nam e and Address Organization Details Recorded Time Influenza, split virus, quadrivalent, preservative 7 completed Alon Gamez [facility] 01/22/2017 12:43:11 Influenza, split virus, quadrivalent, preservative 7 completed Jeffery Cyr MD [address], [place], [address], [facility] 03/07/2017 11:40:41 Td(adult) unspecified formulation 7 completed Jeffery Cyr MD [address], [place], [address], [facility] 03/07/2017 11:40:54 Past Encounters Encounter ID Performer Location Encounter Start Date Encounter Closed Date Diagnosis/Indication Diagnosis SNOMED-CT Code Diagnosis ICD10 Code Diagnosis Note [id number] Antoinette Carvajal, [facility], [facility] [address] [place] [address] 02/13/2016 11:21:05 02/13/2016 12:46:22 Follow-up visit 023150074 Z09 Plain X-ra y of soft tissue of chest abnormal 783025138 R93.8 02/06/16 Chest ray yielded pneumonia and possible pulmonary nodules Pneumonia 941255974 J18. 9 Treated with Z hossein on 02/06/16 [id number] Jeffery Cyr MD [facility], [facility] [address] [place] [address] 09/13/2016 10:13:52 09/13/2016 11:20:49 Near syncope 053920174 R55 with palpitatio n on and off Fatigue 57470466 R53.83 Hyperlipidemia 67395238 E78.5 Long-term current use of steroid 773729936 Z79.52 Gastroesop hageal reflux disease without esophagitis 138649536 K21.9 Vitamin D deficiency 347 46407 E55.9 [id number] Jeffery Cyr MD [facility], [facility] [address] [place] [address] 12/14/2016 10:00:00 12/14/2016 10:53:10 Pharyngitis 574405201 J02.9 Testostero ne level below reference range 012734674 R79.89 On examina tion - dysphonia 387360972 R49.0 Ankylosing spondylitis 4348412 M45.9 sees rheumatolo gy Active or passive immunization 715985155 Z23 [id number] JOSIE ELMORE APN [facility], [facility] [address] [place] [address] 01/22/2017 12:32:43 01/22/2017 13:35:42 Cough 52059588 R05 increase prednisone to 1.5 tabs x 5 days then resume back to 5mg dailyconti nue mucinex DM twice daily Chronic back pain 304630 002 G89.29 prednisone 5mg dailyconce ntrex scheduled following this illness Gastroesop hageal reflux disease 263101636 K21.0 Hyperlipidemia 41068372 E78.[address] Cardoza 12/2016LDL 118Tri 182 Pleuritic pain 8332597 R 07.81 right sidedsore with coughing although during stretching on roller felt a pop on right side Wheezing 10714267 R06.2 O2 97% [id number] Jeffery Cyr MD [facility], [facility] [address] [place] [address] 03/07/2017 10:40:51 03/07/2017 11:46:34 Sprain of ankle 95180882 S93.401A ice , elevation , X ray Asthma 833773783 J45.90 9 Low back pain 175789497 M54.5 Vitamin D deficiency 347 10742 E55.9 Hyperlipidemia 02513386 E78.5 On examina tion - dysphonia 021363464 R49.0 Screening procedure 2012 5006 Z13.9 [id number] Jeffery Cyr MD [facility], [facility] [address] [place] [address] 06/05/2017 12:09:45 06/05/2017 13:15:44 Asthma 247951449 J45.909 Ankylosing spondylitis 1862600 M45.9 sees rheumatolo gy Vitamin D deficiency 347 06651 E55.9 Gastroesop hageal reflux disease without esophagitis 536117088 K21.9 Primary er ectile dysfunction 967054014 N52.9 Cramp in lower limb 4499 43904 R25.2 Health Concerns Section Related Observation LastModified by Organization Detai ls LastModified Time None Recorded Concern Status LastModified by Organization Details LastModified Time None Recorded Advance Directives Directive None Recorded Payers Insurance Date Sequence Insurance Name Policy Number Policy Franks Covered Member ID Franks Member ID Guarantor Name 09/02/2017 1 [id number] MYNOR Bricerinku Valente [id number] Bricerinku Valente Notes Date Note Type Note Provider Name and Address Organization Details Recorded Time 09/13/2016 text/html Hypertension F/UReported by PatientHPIFor medications, patient reportstaking medications as directedandno side effects from medication. For lifestyle, patient reportsregular exercise,limiting/avoi ding salt, andcompliant with low salt diet. For associated symptoms, patient reportsno dizziness,no lightheadedness,no chest pain,no shortness of breath,no palpitations,no edema,no calf pain with exertion, andno headache. had palpitation on and off , with feeling that is going to faint one time Jeffery Cyr MD [address], [place], [address], [facility] 09/13/2016 11:18:34 12/14/2016 text/html Hypertension F/UReported by PatientHPIFor medications, patient reportstaking medications as directedandno side effects from medication. For lifestyle, patient reportsregular exercise,limiting/avoi ding salt, andcompliant with low salt diet. For associated symptoms, patient reportsno dizziness,no lightheadedness,no chest pain,no shortness of breath,no palpitations,no edema,no calf pain with exertion, andno headache. ST, voice change , 2 weeks Jeffery Cyr MD [address], [place], [address], [facility] 12/14/2016 10:50:18 01/22/2017 text/html CoughReported by Patient cold x 2 weekswheezing at night occasionallycough -- non productivedenies fever, chills, or sweats JOSIE ELMORE APN [address], [place], [address], [facility] 01/22/2017 13:38:06 03/07/2017 text/html Hypertension F/UReported by PatientHPIFor medications, patient reportstaking medications as directedandno side effects from medication. For lifestyle, patient reportsregular exercise,limiting/avoi ding salt, andcompliant with low salt diet. For associated symptoms, patient reportsno dizziness,no lightheadedness,no chest pain,no shortness of breath,no palpitations,no edema,no calf pain with exertion, andno headache. twist Rt ankle yesterday Jeffery Cyr MD [address] [facility] [address], [place], [address], [facility] 03/07/2017 11:42:33 06/05/2017 text/html Hypertension F/UReported by PatientHPIFor medications, patient reportstaking medications as directedandno side effects from medication. For lifestyle, patient reportsregular exercise,limiting/avoi ding salt, andcompliant with low salt diet. For associated symptoms, patient reportsno dizziness,no lightheadedness,no chest pain,no shortness of breath,no palpitations,no edema,no calf pain with exertion, andno headache. seen pod , walking bootleg cramps on and off Jeffery Cyr MD [address] [facility] [address], [place], [address], [facility] 06/05/2017 12:51:57
--- OUTSIDE RECORDS SUMMARY | 2024-09-26 12:42 | XMS_ITS | Referral Summary ---
Author Organization [facility] Address [address] [place] [address] Care Team Providers Care Cam Specialist Name Role Phone Jeffery Cyr MD Primary Care Provider [phone] Allergies Active Allergy Reactions Criticality Noted Date Comments Codeine Nausea Only Medications cholecalciferol (VITAMIN D-3) 5,000 unit tablet daily. 12/27/2011 Active predniSONE (DELTASONE) 5 mg tablet Active dexlansoprazole (DEXILANT) 60 mg capsule daily. Active secukinumab (COSENTYX) 150 mg/mL syringe Active uaiye-0-ghj-epa- dpa-fish oil 1,050-1,200 mg capsule daily. 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
--- OUTSIDE RECORDS SUMMARY | 2024-09-26 12:42 | XMS_ITS | Clinical Summary ---
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
--- OUTSIDE RECORDS SUMMARY | 2024-09-26 12:42 | XMS_ITS | Data Portability ---
Author Organization [place] - [facility] OFFICE Address [address] [place] [address] Care Team Providers Care Bevel Gear Generator Operator Name Role Phone LALO DON Primary Care Provider [phone] Assessment Encounter Date Assessment Date Assessment LastModified [...] Orders Crestor 10 mg tablet 023 023 [facility]/Pharmacy #[id number], [address] [place], [address], 3 17:40:37 CoQ-10 100 mg capsule 023 023 [facility]/Pharmacy #[id number], [address] [place], [address], 3 17:40:37 Patient TargetsNo targets recorded. Patient Instructions Encounter Date Encounter Id Patient Instructions Last Modified By Organization Details Last Modified Time 12/24/2019 [id number] lightheadedness or faintness: care instructions [email or web address] Not available 12/24/2019 14:20:42 high cholesterol : care instructions [email or web address] Not available 12/24/2019 14:20:42 learning about low-fat eating [email or web address] Not available 12/24/2019 14:20:42 Exercise advised Low cholesterol diet advised Low sodium diet advised [email or web address] Not available 12/24/2019 14:20:32 Scribed by Murtaza Cuenca CHILD CARE AIDE-BC [email or web address] Not available 12/24/2019 14:20:37 12/22/2020 [id number] lightheadedness or faintness: care instructions [email or web address] Not available 12/22/2020 16:09:35 high cholesterol : care instructions [email or web address] Not available 12/22/2020 16:09:35 learning about low-fat eating [email or web address] Not available 12/22/2020 16:09:35 01/05/2021 [id number] lightheadedness or faintness: care instructions [email or web address] Not available 01/05/2021 15:36:33 high cholesterol : care instructions [email or web address] Not available 01/05/2021 15:36:33 learning about low-fat eating [email or web address] Not available 01/05/2021 15:36:33 07/24/2022 [id number] Exercise advised Low cholesterol diet advised Low [...] gram No observ ation record ed. [facility] [address], [place], [address], 01/04/2021 16:29:25 01/06/20 21 01/03/2021 US, echoc [...] and Address Organization Details Recorded Time Fatigue 82642508 Active 2016 Nuria mcgregor [place] - [facility] 7 14:01:20 Gastroesophage al reflux disease 069429688 Active 2016 Nuria mcgregor [place] - [facility] 7 14:01:28 Swollen abdomen 82498404 Active 2016 Nuria mcgregor [place] - [facility] 7 14:01:38 Backache 744861676 Active 2016 Nuria mcgregor [place] - [facility] 7 14:01:56 Anxiety 19012954 Active 2016 Nuria mcgregor [place] - [facility] 7 14:02:01 Depressive disorder 18498024 Active 2016 Nuria Kaplan [facility] 7 14:02:05 Myron garcia 509219260 Active 2016 Nuria Kaplan [facility] 7 14:02:14 Hyperlipidemia 96305405 Active 2016 Shannon Galindo [facility] 3 13:06:50 Dyspnea on exertion 59240006 Active 2020 James Cardoza [facility] 1 16:07:38 Problem Notes None recorded. Medical Equipment None Reported. Allergies Allergen ID Allergen Name Allergen Category Reaction Reaction Severity Criticality Documentation Date Start Date Code Code System Note Provider Name and Address Organization Details Recorded Time 5248 codeine medicatio n Not available Not available Not available 12/06/2016 2670 RxNorm hot flash es Nuria Kaplan [facility] 7 14:14:48 Medications Name Sig Start Date [...] completed Not Available Not Available Not Available [place] 3 1 tab qd 12/23 completed Not [...] Not Available No t Available Flucelvax Quad 5751-6173 (PF) 60 mcg (15 mcg x 4)/0.5 [...] Updated DateTime 3 187.96 cm 26.6 kg/m2 28418.6 2 g 81 /min 16 /min 97 % 97 % 118/80 mm[Hg] Clark Holt i, MD [address] [place], [address], [facility] 3 14:12:59 Date Recorded Body height Body mass index (BMI) Body weight Heart rate Respiratory rate Oxygen saturation Oxygen saturation in Arterial blood by Pulse oximetry Systolic And Diastolic Provider Name and Address Organization Details Last Updated DateTime 3 187.96 cm 26.4 kg/m2 63582.0 3 g 81 /min 16 /min 96 % 96 % 126/88 mm[Hg] Jorge Baxter [facility] 3 17:01:05 Date Recorded Body height Body mass index (BMI) Body weight Heart rate Oxygen saturation Oxygen saturation in Arterial blood by Pulse oximetry Systolic And Diastolic Provider Name and Address Organization Details Last Updated DateTime 1 187.96 cm 25.7 kg/m2 07081.4 7 g 69 /min 97 % 97 % 109/77 mm[Hg] Екатерина Wilkins [facility] 1 15:36:39 Date Recorded Body height Body mass index (BMI) Body weight Heart rate Oxygen saturation Oxygen saturation in Arterial blood by Pulse oximetry Body temperature Systolic And Diastolic Provider Name and Address Organization Details Last Updated DateTime 0 187.96 cm 25.5 kg/m2 09814.8 8 g 91 /min 97 % 97 % 97.7 [degF] 132/90 mm[Hg] MIGUELANGEL GRANT [facility] 0 14:13:22 Date Recorded Body height Body mass index (BMI) Body weight Heart rate Oxygen saturation Oxygen saturation in Arterial blood by Pulse oximetry Systolic And Diastolic Provider Name and Address Organization Details Last Updated DateTime 1 187.96 cm 25.7 kg/m2 48544.4 7 g 78 /min 99 % 99 % 112/82 mm[Hg] Екатерина Wilkins [facility] 1 14:40:25 Social History Question Answer Notes LastModified by [employer] ion Details LastModified Time Tobacco Smoking Status [email or web address] 14:05:32 What Is Your Level Of Caffeine Consumption? Occasional [email or web address] Information not available 12/06/2016 How Much Tobacco Do You Chew? None [email or web address] Information not available 12/06/2016 What Type Of Diet Are You Following? REGULAR Information not available 12/06/2016 Which Illicit Or Recreational Drugs Have You Used? No [email or web address] Information not available 12/06/2016 Live Alone Or With Others? With Others [email or web address] Information not available 12/06/2016 Marital Status [email or web address] Informatio n not available 12/06/2016 What Was The Date Of Your Most Recent Tobacco Screening? 12/26/2017 Information not available 09/25/2018 How Many Children Do You Have? 2 [email or web address] Information not available 12/06/2016 How Much Tobacco Do You Smoke? No [email or web address] Information not available 12/06/2016 General Stress Level Medium [email or web address] Information not available 12/06/2016 How Many Years Have You Smoked Tobacco? 0 Information not available 12/25/2016 Sex: Unknown Functional Status Question Answer Note LastModified by Organizat ion Details LastModified Time What is your level of alcohol consumption? None [email or web address] Information not available 12/06/2016 Do you or have you ever used smokeless tobacco? 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 Never used electronic cigarettes Information not available 12/22/2018 What is your exercise level? None [email or web address] Information not available 12/06/2016 Mental Status None recorded. Family History Relationship Description Onset Age of this Age Resolved Age Notes LastModified by Organization Details LastModified Time Mother Heart disease Not available 2016 14:04:57 Mother Hypertensive disorder [email or web address] Not available 2016 14:05:16 Father Hypercholest erolemia [email or web address] Not available 2016 14:05:22 Medical History Condition Response Depression Y Hyperlipidemia Y GERD/Reflux Y Past Encounters Encounter ID Performer Location Encounter Start Date Encounter Closed Date Diagnosis/Indication Diagnosis SNOMED-CT Code Diagnosis ICD10 Code Diagnosis Note [id number] Clark Danielson MD [place] [facility] [place] [address] 12/06/2016 13:45:47 12/06/2016 15:30:24 Lightheadedness 176812712 R42 Patient presents with recurrent dizziness. Given [...] adjustment s to the present medical regimen. [id number] James Cardoza MD [place] [facility] [address] [place] [address] 12/27/2016 14:18:50 12/28/2016 12:53:46 Lightheadedness 332465941 R42 Stress test negative. Very good exercise tolerance. Recent ECHO showed hyperdynam ic LV systolic function. Hyperlipidemia 73940237 E78.5 Patient's hyperlipid emia is relatively well-contr olled on present medical therapy. Patient is tolerating , without difficulty , the current medication s. I have made the following changes to the current regimen:st art fish oil . Cont low cholestero l diet. [id number] Clark Danielson MD [place] [facility] [address] [place] [address] 12/26/2017 14:00:19 12/26/2017 14:57:36 Hyperlipidemia 61093243 E78.5 Patient's hyperlipid emia is relatively well-contr olled on present medical therapy. Patient is tolerating , without difficulty , the current medication s. I have made the following changes to the current regimen:st art fish oil . Cont low cholestero l diet.will obtain last lipid panel from [facility] 78398153 8 R42 Stress test negative. Very good exercise tolerance. last ECHO showed hyperdynam ic LV systolic function.r epeat ECHO [id number] James Cardoza MD [place] OFF[facility] [address] [place] [address] 12/25/2018 14:02:16 12/25/2018 15:22:06 Hyperlipidemia 02961451 E78.5 Patient's hyperlipid emia is relatively well-contr olled on present medical therapy. Patient is tolerating , without difficulty , the current medication s. I have made the following changes to the current regimen:st art fish oil . Cont low cholestero l diet.will obtain last lipid panel from [facility] 47316636 8 R42 better Family his tory of Cardiovascular disease 699574585 Z82.49 Stress test negative. Very good exercise tolerance. last ECHO showed hyperdynam ic LV systolic function. [id number] James Cardoza MD [place] OFF[facility] [address] [place] [address] 12/24/2019 13:59:21 12/24/2019 14:44:25 Hyperlipidemia 67616160 E78.5 Patient's hyperlipid emia is relatively well-contr olled on present medical therapy. Patient was advised to eat a low-fat diet. Patient is tolerating , without difficulty , the current medication s. I have not made changes to the current regimen. [facility] 01442407 8 R42 Resolved Family his tory of Cardiovascular disease 709834264 Z82.49 SE negative 12/18/2016 Maximal [place] [id number] James Cardoza MD [place] OFF[facility] [place] [address] 12/22/2020 15:25:10 12/22/2020 16:02:44 Hyperlipidemia 58659953 E78.5 Patient's hyperlipid emia is relatively well-contr olled on present medical therapy. Patient was advised to eat a low-fat diet. Patient is tolerating , without difficulty , the current medication s. I have not made changes to the current regimen. Lightheadedness 32792656 8 R42 Resolved Family his tory of Cardiovascular disease 002514847 Z82.49 SE negative 12/18/2016 Maximal medical treatment [...] adjustment s to the present medical regimen. [id number] James Cardoza MD [place] [facility] [place] [address] 01/05/2021 14:31:01 01/05/2021 15:13:15 Hyperlipidemia 52312665 E78.5 Patient's hyperlipid emia is relatively well-contr olled on present medical therapy. Patient was advised to eat a low-fat diet. Patient is tolerating , without difficulty , the current medication s. I have not made changes to the current regimen. Lightheadedness 88989573 8 R42 Resolved Family his tory of Cardiovascular disease 911249563 Z82.49 SE negative 12/18/2016 Maximal medical treatment [...] has hx of possibly covid. pulmonary eval [id number] Clark Danielson MD [place] [facility] [address] [place] [address] 07/24/2022 13:58:44 07/24/2022 15:11:43 Hyperlipidemia 06511805 E78.5 Needs to keep LDL less than 70, and HDL more than 40Will get fasting lipids for follow up Lightheadedness 45518576 8 R42 Will get exercise stress echo, to look for any structural heart disease, and to look for any ischemia Family his tory of Cardiovascular disease 666817430 Z82.49 Will get exercise stress echo, to look for any structural heart disease, and to look for any ischemia Dyspnea on exertion 6084 5006 R06.09 Will get exercise stress echo, to look for any structural heart disease, and to look for any ischemia [id number] Clark Danielson MD [place] [facility] [address] [place] [address] 10/16/2022 16:54:51 10/16/2022 18:05:37 Hyperlipidemia 15349077 E78.5 Needs to keep LDL less than 70, and HDL more than 40Will get fasting lipids for follow upLDL is 153 and TG 167will start crestor 10 mg daily and coq10 [facility] [place] 981230[facility] 8 R42 will monitor for one week [...] ion. Family his tory of Cardiovascular disease 999227972 Z82.49 negative stress test Dyspnea on exertion 6084 5006 R06.09 Will get exercise stress echo, to look for any structural heart disease, and to look for any ischemia Chest pain 82783702 R07. 9 stress echo is negative and [...] 02/23/2019 1 JEREMIAH-CAESAR (PPO) MYNOR [employer] Valente [id number] Brice Hugo 02/23/2019 1 [employer] Brice Valente [id number] Brice Valente 09/08/2024 1 [employer] - [facility] [id number] Birce Refugio Valente [id number] [employer] Valente Notes Date Note Type Note [...] less than 15% diameter stenosis. James Cardoza [place], [place] - [facility] 12/24/2019 15:18:17 12/22/2020 text/html 12/22/20CC : Cardiac follow upHPI; 50 year-old WM with PMH [...] less than 15% diameter stenosis. James Cardoza [facility], [place] - [facility] 12/22/2020 16:09:38 01/05/2021 text/html 01/05/21CC : Cardiac follow upHPI; 50 year-old WM with PMH [...] less than 15% diameter stenosis. James Cardoza [facility], [place] - [facility] 01/05/2021 15:37:07 07/24/2022 text/html 07/24/22CC : Cardiac follow up, chest painHPI; 52 year-old WM [...] than 15% diameter stenosis. Clark Danielson MD [address] [place], [address], [facility] - [facility] 07/24/2022 15:03:54 10/16/2022 text/html Sleep ProblemsRe ported by Patient 10/16/22CC : Cardiac follow up chest painDean HUGO 52 year-old [...] with less than 15% diameter stenosis. JULIUS [place], [place] - [facility] 10/16/2022 17:40:38
--- OUTSIDE RECORDS SUMMARY | 2024-09-26 12:42 | XMS_ITS | Clinical Summary ---
Author Organization [facility] Address [address] [place] [address] Care Team Providers Care Office Rental Clerk Name Role Phone Unavailable Primary Care Provider [...]
--- OUTSIDE RECORDS SUMMARY | 2024-09-26 12:42 | XMS_ITS | Clinical Summary ---
Author Organization [facility] Address [address] [place] [address] Care Team Providers Care Whiting Machine Operator Name Role Phone Jeffery Cyr MD Primary Care Provider [phone] Allergies Active Allergy Reactions Criticality Noted Date Comments Codeine Nausea Only Medications cholecalciferol (VITAMIN D-3) 5,000 unit tablet daily. 12/27/2011 Active predniSONE (DELTASONE) 5 mg tablet Active dexlansoprazole (DEXILANT) 60 mg capsule daily. Active secukinumab (COSENTYX) 150 mg/mL syringe Active jmlxt-0-njk-epa- dpa-fish oil 1,050-1,200 mg capsule daily. 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
--- OUTSIDE RECORDS SUMMARY | 2024-09-26 12:42 | XMS_ITS | Clinical Summary ---
Author Organization [facility] Address [address] [place] [address] Care Team Providers Care Prison Guard Supervisor Name Role Phone Jeffery Cyr MD Primary Care Provider [phone] Source Comments [facility],non-owned Affiliates and Associated Physician Practices is amultiple site organization consisting of ambulatory clinics and hospital sitesin [place], [place], [place] and [place]. This disclosure is being madepursuant to the Care Everywhere program and may not contain all information available regarding this patient. 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 [address] [place] [address] PCP - General 05/15/18
== END 2024-09-26 12:36 | disposition home or self-care (01) ==
LOC: ANHIMG 12:40
PROVIDERS: PCP Family Medicine; Visit Provider Internal Medicine
DX: M45.9 Ankylosing spondylitis of unspecified sites in spine (principal); Z15.89 Genetic susceptibility to other disease; M48.02 Spinal stenosis, cervical region; Z79.52 Long term (current) use of systemic steroids; M47.892 Other spondylosis, cervical region
CPT/HCPCS: 72040; 72070; 72100; 72202; 73130; 73502